=== PATIENT | male | born 1980 | race Caucasian/White ===

== ENCOUNTER 2024-01-08 04:04 | Emergency (ER) | payer OTHER, SELFPAY ==
[2024-01-08 04:07] VITALS: BP 180/100
[2024-01-08 04:47] VITALS: BMI 36.9
[2024-01-08 04:49] VITALS: BP 171/88
[2024-01-08 05:00] VITALS: BP 168/104
[2024-01-08 05:10] LABS: % Basophils 0.8 % (0-2); % Eosinophils 0.8 % (0-6); % Immature Granulocytes 0.4 % (0-0.5); % Lymphocytes 7.9 % (20.5-51.1); % Monocytes 6.5 % (1.7-9.3); % Neutrophils 83.6 % (42.2-75.2); Absolute Basophils 0.1 10^3/uL (0-0.2); Absolute Eosinophils 0.1 10^3/uL (0-0.7); Absolute Lymphocytes 0.8 10^3/uL (1.2-3.4); Absolute Monocytes 0.7 10^3/uL (0.1-0.6); Absolute Neutrophils 8.6 10^3/uL (1.4-6.5); Hematocrit 36.4 % (39.0-52.0); Hemoglobin 10.9 g/dL (13.0-18.0); Mean Corp Hgb Conc. 29.9 g/dL (33.0-37.0); Mean Corpuscular Hgb 20.4 pg (27.0-31.0); Mean Platelet Volume 9.6 fL (7.4-10.4); Nucleated Red Blood Cells % 0 % (-); Platelet Count 277 10^3/uL (130-400); Red Blood Cell Count 5.35 10^6/uL (4.70-6.10); Red Cell Dist. Width 18.6 % (11.5-14.5); White Blood Cell Count 10.3 10^3/uL (4.8-10.8)
[2024-01-08 05:13] LABS: ALT (SGPT) 15 U/L (0-50); AST (SGOT) 26 U/L (17-59); Alkaline Phosphatase 86 U/L (38-126); Blood Urea Nitrogen 9 mg/dl (9-20); Carbon Dioxide 25 mmol/L (22-30); Chloride 104 mmol/L (98-107); Estimated Creatinine Clearance > 125 ml/min; Glucose 112 mg/dl (70-99); Lipase 89 U/L (23-300); Potassium 4.2 mmol/L (3.5-5.1); Sodium 135 mmol/L (135-145); Total Bilirubin 1.2 mg/dl (0.2-1.3); Total Protein 6.8 g/dl (6.3-8.2); eGFR > 60.00
[2024-01-08 05:54] LABS: Urine Albumin Negative (Neg - Trace); Urine Bilirubin 1+ (Negative); Urine Character Clear (Clear); Urine Color Yellow; Urine Glucose Negative (Negative); Urine Ketone 3+ (Negative); Urine Leukocyte Negative (Negative); Urine Nitrite Negative (Negative); Urine Occult Blood Negative (Negative); Urine Specific Gravity 1.015 (<1.030); Urine Urobilinogen Negative (Neg - 1+); Urine pH 6.5 (5.0-9.0)
[2024-01-08 06:00] VITALS: BP 167/102
[2024-01-08 06:12] VITALS: BP 167/102
--- NOTE | 2024-01-08 06:41 | ED.GENMED ---
History of Present Illness
General
Chief Complaint: Abdominal Pain
Source: patient and spouse
Exam Limitations: none
Time Seen by Provider: 01/08/24 04:24
History of Present Illness
History of Present Illness:
43-year-old male who presents with right-sided abdominal pain. Patient does report history of gastric bypass many years ago as well as right-sided inguinal hernia at times. Patient states typically is able to push it back in. No fevers but he was
very nauseous. States he will did have 3 bowel movements yesterday that were normal but since then was not able to. He states he was working in [employer] at work. Has a history of A-fib with ablation and gastric bypass as mentioned.
Past History
Past History
ED Past Medical History: Arrthythmia (Afib), HTN and Other (Inguinal hernia)
ED Past Surgical History: Cardiac (Ablation), Orthopedic (Elbow) and Tonsilectomy
Social History
Tobacco: Non-smoker
Alcohol: Occasional
Drug: None
Employment: Employed
Phy Exam
Physical Exam
Physical Exam:
CONSTITUTIONAL Patient alert and oriented to person, place and time. Well-appearing. Vital signs reviewed.
HEAD atraumatic, normocephalic.
EYES eyelids normal to inspection, Extraocular muscles intact, Conjunctiva normal, Sclera normal.
NECK normal range of motion, Trachea midline, no jugular venous distention.
RESPIRATORY CHEST No respiratory distress noted, Chest expansion equal
ABDOMEN large right inguinal hernia. Able to reduce after pressure applied and patient placed in Trendelenburg.
BACK normal inspection, no obvious deformities
UPPER EXTREMITY range of motion normal, Motor strength normal, no cyanosis, no edema.
LOWER EXTREMITY range of motion normal, Motor strength normal, no cyanosis, no edema.
NEURO Speech normal, No focal motor deficits, [place] coma scale 15, Memory normal, Cranial Nerves intact to screening exam.
SKIN skin warm, dry, and normal in color.
PSYCHIATRIC patient oriented to person place and time, Normal affect.
Course
Orders/Labs/Results
Orders:
Orders
01/08/24 04:51
Complete Blood Count/With Diff Urgent
Comprehensive Metabolic Panel Urgent
Lipase Urgent
01/08/24 05:43
Urinalysis Reflex To Culture Urgent
Date Specimen was Collected: 01/08/24
Time Specimen was Collected: 05:40
Abnormal Lab Results
01/08/24 01/08/24
04:51 05:43
Hgb 10.9 L g/dL
(13.0-18.0)
Hct 36.4 L %
(39.0-52.0)
MCV 68.0 L fL
(80.0-94.0)
MCH 20.4 L pg
(27.0-31.0)
MCHC 29.9 L g/dL
(33.0-37.0)
RDW 18.6 H %
(11.5-14.5)
Absolute Neuts (auto) 8.6 H 10^3/uL
(1.4-6.5)
Absolute Lymphs (auto) 0.8 L 10^3/uL
(1.2-3.4)
Absolute Monos (auto) 0.7 H 10^3/uL
(0.1-0.6)
Neutrophils % 83.6 H %
(42.2-75.2)
Lymphocytes % 7.9 L %
(20.5-51.1)
Glucose 112 H mg/dl
(70-99)
Urine Ketones 3+ A
(Negative)
Urine Bilirubin 1+ A
(Negative)
01/08/24 04:51
01/08/24 04:51
Vital Signs
Initial and Last Documented VS:
Initial Vital Signs
Temp Pulse Resp BP Pulse Ox
99.2 F 73 20 180/100 99
07/27/24 04:07 01/08/24 04:07 01/08/24 04:07 01/08/24 04:07 01/08/24 04:07
Last Documented Vital Signs
Temp Pulse Resp BP Pulse Ox
99.2 F 70 19 167/102 97
01/08/24 04:07 01/08/24 06:12 01/08/24 06:12 01/08/24 06:12 01/08/24 06:12
MDM/Problems Addressed
MDM/Problems Addressed:
Inguinal hernia
*Pulse Oximetry
Patient hypoxic: no
*Critical Care Note
Total Time (30-74mins, 75-104mins- exclusive of procedures): Not Applicable
Data Reviewed
Source: patient
Further Testing Considered But Not Given:
Consider CT but inguinal hernia reduced.
Patient Management
Escalation/DeEscalation of care consider admission/obs:
Patient presented with right-sided discomfort. He also had dry heaves and nausea. Able to reduce very large right inguinal hernia during exam. Patient was observed and reassessed. Shortly after inguinal hernia was reduced he was able to use the
bathroom and passed stool and gas from below. Patient states that symptoms have markedly improved and have resolved. Suspect all symptoms related to inguinal hernia. Will refer to surgery for follow-up.
ED Attending Note
-
Portions of this chart may have been created with voice recognition software.� Occasional wrong word or��sound alike� substitutions may have occurred due to the inherent limitations of voice recognition software.
Discharge Plan
Departure
Patient Disposition: Home (Routine Discharge)
Date of Disposition: 01/08/24
Time of Disposition: 06:41
Patient with high blood pressure during this ER visit?: Yes
Discharge Problem:
Inguinal hernia
Instructions: Groin Hernia (DC), BLOOD PRESSURE
Prescriptions:
No Action
No Current Medications
0
Referrals:
Bharat Reed MD [Active] -
NONE,* [Family Provider] -
Stand Alone Forms: Return to Work
Activity Restrictions/Additional Instructions:
Please avoid straining or heavy lifting as discussed. Please see surgery in follow-up in the next 3 to 5 days. Return immediately for intractable vomiting, abdominal pain, fevers or any other concerns.
Your blood pressure was elevated while in the Emergency Department, please have your doctor re-evaluate it in the next 48 hours as untreated hypertension may lead to serious complications.
Interventions
Interventions:
*Risk Screen - Suicide Last Done: 01/08/24 04:07
*General Assessment Last Done: 01/08/24 04:07
*Neglect/Abuse Screening Last Done: 01/08/24 04:07
ED- Fall Risk Assessment Last Done: 01/08/24 04:07
*ED COVID-19 Vaccine History Last Done: 01/08/24 04:07
SS-Wfltno-Edylppjcuk Assessment Last Done: 01/08/24 04:20
Discharge Date and Time
Print Language: QATARI
[2024-01-08 07:00] VITALS: BP 161/96
== END 2024-01-08 07:15 | disposition home or self-care (01) ==
LOC: EMR 04:04
PROVIDERS: EMERGENCY PHYSICIAN Emergency Medicine
DX: K40.90 Unilateral inguinal hernia, without obstruction or gangrene, not specified as recurrent (principal); R10.9 Unspecified abdominal pain; R11.0 Nausea; I48.91 Unspecified atrial fibrillation; I10 Essential (primary) hypertension; Z98.84 Bariatric surgery status
CPT/HCPCS: 99283; 80053; 81003; 83690; 85025

== ENCOUNTER → 2024-02-11 07:53 | Outpatient (REF) | payer OTHER, SELFPAY | LOC: RAD 07:53 | PROVIDERS: ATTENDING PHYSICIAN Surgery | DX: K40.90 Unilateral inguinal hernia, without obstruction or gangrene, not specified as recurrent (principal) | CPT/HCPCS: 74177; Q9967 ==

== ENCOUNTER 2024-02-28 06:31 | Day surgery (SDC) | payer OTHER, SELFPAY ==
[2024-02-28] VITALS (7 sets, daily range): BP systolic 154–173; BP diastolic 86–103; BMI 34.9
[2024-02-28] MEDS: TYLENOL 1000 MG PO (11:18)
[2024-02-28] MEDS: NORMOSOL-R/PLASMALYTE-A 1000 IV (11:19)
--- NOTE | 2024-02-28 13:51 | OR.RPT ---
Operative Report
Operative Report
Primary Surgeon: Meliton
Assisting: Airam SHIN
Pre-op Diagnosis: Right inguinal hernia
Post-op Diagnosis: Same
Procedure Performed: Robot assisted laparoscopic repair of right inguinal hernia
Anesthesia Type: GETA
Specimen / Cultures: None
Estimated Blood Loss: 10cc
Complications: None immediate
Operative Findings: Large inguinoscrotal hernia, sliding type, involving cecum and appendix. Sac totally reduced. No discrete cord lipoma. XL MID 3D Max
Date of surgery: 02/28/24
Indications:� This 43M developed symptomatic right inguinal hernia involving colon. Bowel prep was performed preoperatively. Robot assisted laparoscopic repair was planned.
Description of procedure:� The patient was taken to the operating room and positioned into supine position. Guzman placed. The patient�s abdomen was prepped and draped in standard sterile fashion. A time-out was completed verifying correct patient,
procedure, site, positioning, and implants and special equipment prior to beginning this procedure.� The hernia was manually reduced after induction. A stab incision was made in the left upper quadrant, a Veress needle was inserted and proper
position was confirmed by aspiration and saline drop test. Following this, pneumoperitoneum was created with insufflation of carbon dioxide to 12 mmHg. Then a 8mm robotic trocar was inserted above and to the left of the umbilicus. A laparoscope was
inserted and the area of initial trocar entry and Veress needle placement were both inspected and no injuries were found. Two 8mm trocars were then placed lateral to the rectus sheath under direct visualization.
Both inguinal regions were inspected and the median umbilical ligament, medial umbilical ligament, and lateral umbilical fold were identified. Attention was turned to the right groin where a defect was identified. External pressure was applied by
the bedside assist to help with reduction. The peritoneum was incised transversely above the defect and a flap was developed in the caudad direction. Wellington�s ligament was identified ultimately dissected to its junction with the iliac vein and the
space of Retzius was developed bluntly.�The dissection was continued inferiorly to the iliopubic tract, with care taken to avoid injury to the femoral branch of the genitofemoral nerve and the lateral femoral cutaneous nerve. The cord structures
were parietalized. The sac was very large and difficult to reduce but ultimately all came down with the flap.
The direct space was inspected and no hernia was identified. The femoral space was inspected no defect was identified.� The indirect space was inspected and a hernia was identified and reduced by gentle traction. The sac was large and deep but
ultimately totally reduced. The canal was inspected and no cord lipoma was identified.
Extra large right MID 3D max mesh was passed through a trocar. The mesh was placed into the preperitoneal space and moved into position to lay flat and completely cover the direct, indirect, and femoral spaces with overlap at the midline. The mesh
was secured into place using 2-0 vicryl suture to Wellington�s ligament medially and laterally. Care was taken to avoid the inferolateral triangles containing the iliac vessels and genital nerves. The peritoneal flap was closed over the mesh and secured
with 2-0 monocryl stratafix suture in similar positions of safety. A 14g angiocath was used to decompress the preperitoneal space revealing good seal and all mesh in good position without folding or curling.
After ensuring adequate hemostasis, the trocars were removed and the pneumoperitoneum allowed to escape. The trocar incisions were closed at the skin level using 4-0 monocryl and topical skin adhesive. Guzman removed. All counts were correct and the
patient tolerated the procedure well and was taken to the postanesthesia care unit in stable condition.
== END 2024-02-28 15:45 | disposition home or self-care (01) ==
LOC: SDS 06:31
PROVIDERS: ATTENDING PHYSICIAN Surgery
DX: K40.90 Unilateral inguinal hernia, without obstruction or gangrene, not specified as recurrent (principal)
CPT/HCPCS: 49525; C1781

== ENCOUNTER 2024-02-29 17:48 | Emergency (ER) | payer OTHER, SELFPAY ==
[2024-02-29 17:50] VITALS: BP 166/103
--- NOTE | 2024-02-29 17:52 | ED.PDOC.TRB ---
ED Provider Triage
-
Patient seen by provider in Triage?: Seen in Triage
Attestation: A medical screening examination has been initiated by a qualified medical provider. Based on the assessment performed at this time, it has been determined that an emergent medical condition may exist and the patient has been informed
that further medical evaluation and possible additional diagnostic testing may be needed.
HPI: 43-year-old male presents the emergency department for evaluation of right scrotal swelling. States he is concerned that his intestines have protruded back into his hernia sac. He is 1 day status post inguinal hernia repair with mesh done at
[facility] by Dr. Coelho. Pain is mild
GENERAL: Alert , in no apparent distress
EYE: No visual abnormalities.
NECK: Trachea midline
ENT: No visible abnormalities.
LUNGS: No acute respiratory distress
NEUROLOGICAL: Alert and oriented
SKIN: Skin intact. No visible changes.
MUSCULOSKELETAL: Moving extremities normally
PSYCH: Normal and appropriate interaction.
Assessment: Likely postoperative edema however will send for ultrasound to confirm that there is no recurrent hernia, unlikely given placement of mesh
This is a medical evaluation conducted in person to initiate diagnostic evaluation and provide initial therapeutics. Please see further documentation by the treating clinician.
--- NOTE | 2024-02-29 18:52 | ED.GENMED ---
History of Present Illness
General
Chief Complaint: Post Operative Problem(s)
Source: patient and records
Time Seen by Provider: 02/29/24 18:29
History of Present Illness
History of Present Illness:
43yoM who is POD 1 s/p R inguinal hernia with mesh presenting for evaluation of right scrotal swelling. The surgery was performed by Dr. Coelho and went well. Patient states he tripped on carpet monica night and he felt a pull in his groin. He checked
and it felt like his R hemiscrotum was enlarged. He was told by his surgeon that he may develop postoperative scrotal fluid due to the size of his hernia. Patient believes that his scrotum is filled with fluid because it feels less firm than his
hernia. He denies any abdominal or scrotal pain. He is urinating and defecating normally. No fevers or vomiting.
Past History
Past History
ED Past Medical History: Arrthythmia (Afib), HTN and Other (Inguinal hernia)
ED Past Surgical History: Cardiac (Ablation), Orthopedic (Elbow) and Tonsilectomy
Social History
Tobacco: Non-smoker
Alcohol: Occasional
Drug: None
Employment: Employed
Phy Exam
General Physical Exam
General Presentation: well appearing and no apparent distress
General age: appears stated age
General Skin: warm and dry
General Habitus: normal
General Mental: alert
Gastrointestinal Exam
Gastrointestinal Exam: non tender, soft, non distended, surgical scar and other (Incisions c/d/i. Abdomen soft, non-tender, non-distended.)
Genitourinary Exam Male
Exam Male: other (+Large amount of R scrotal swelling noted. R hemiscrotum is soft and easily compressible. No tenderness. No palpable hernia. )
[place] Coma Scale
Eye Opening: Spontaneous
Verbal Response: Oriented
Motor Response: Obeys Commands
GCS Total Score: 15
Skin Exam
Skin Exam: normal color and warm/dry
Psychiatric Exam
Psychiatric Exam: normal mood/affect
Course
Orders/Labs/Results
Orders:
Orders
02/29/24 17:50
US Groin (Imaging Only) RT Urgent
Comment:
Reason For Exam: Swelling post groin surgery
US Scrotum Urgent
Comment:
Reason For Exam: R scrotal swelling after hernia surgery
Vital Signs
Initial and Last Documented VS:
Initial Vital Signs
Temp Pulse Resp BP Pulse Ox
97.9 F 90 17 166/103 99
02/29/24 17:50 02/29/24 17:50 02/29/24 17:50 02/29/24 17:50 02/29/24 17:50
Last Documented Vital Signs
Temp Pulse Resp BP Pulse Ox
97.9 F 66 24 155/100 99
02/29/24 17:50 02/29/24 21:06 02/29/24 21:06 02/29/24 21:06 02/29/24 21:06
MDM/Problems Addressed
Differential Diagnosis Includes:
43yoM here with R scrotal swelling. He is s/p R inguinal hernia repair with mesh yesterday. He denies any pain. Urinating and defecating normally. Patient is afebrile and hemodynamically stable. He is well-appearing in no acute distress.
Abdominal exam is benign. Incisions are clean, dry, and intact. There is a large amount of swelling in the right hemiscrotum without tenderness. No palpable hernia. Differential diagnosis include but is not limited to: Hematoma, postoperative
seroma, recurrent hernia
Initial ED plan: Check scrotal and groin ultrasound.
*Critical Care Note
Total Time (30-74mins, 75-104mins- exclusive of procedures): Not Applicable
Update Note
Update Note:
Ultrasound shows a large complex fluid collection in the right testicle favoring a complex hematoma. No visualized hernia in the R groin. Case discussed with Dr. Reed, general surgeon. General surgery recommending ice, elevation, as needed
NSAIDs. Recommendations were discussed with patient. He was advised to call the general surgery office tomorrow for follow-up. ED return precautions discussed. He was discharged in stable condition.
ED Attending Note
-
Portions of this chart may have been created with voice recognition software.� Occasional wrong word or��sound alike� substitutions may have occurred due to the inherent limitations of voice recognition software.
Discharge Plan
Departure
Patient Disposition: Home (Routine Discharge)
Date of Disposition: 02/29/24
Time of Disposition: 21:13
Patient with high blood pressure during this ER visit?: Yes
Discharge Problem:
Postoperative hematoma
Instructions: Hematoma
Prescriptions:
No Action
No Current Medications
0
oxycodone 5 mg tablet
5 - 10 mg PO Q4HPRN PRN (Reason: moderate to severe pain) Qty: 20 0RF
Referrals:
Jerel Coelho MD [Active] -
UNKNOWN - PT DOES,NOT KNOW [Family Provider] -
Activity Restrictions/Additional Instructions:
Elevate your scrotum and apply ice to help with swelling. Take ibuprofen as needed.
Please call the general surgery office tomorrow for follow-up.
Return to the ER with any worsening symptoms, severe pain, fevers.
Interventions
Interventions:
*Risk Screen - Suicide Last Done: 02/29/24 17:51
*General Assessment Last Done: 02/29/24 17:51
*Neglect/Abuse Screening Last Done: 02/29/24 17:51
ED- Fall Risk Assessment Last Done: 02/29/24 21:22
*ED COVID-19 Vaccine History Last Done: 02/29/24 21:22
*Nursing Disposition Last Done: 02/29/24 21:22
ED-Skin Assessment Last Done: 02/29/24 19:01
Discharge Date and Time
Discharge Date/Time: 02/29/24 21:23
Print Language: GREENLANDIC
[2024-02-29 21:06] VITALS: BP 155/100
== END 2024-02-29 21:23 | disposition home or self-care (01) ==
LOC: EMR 17:48
PROVIDERS: EMERGENCY PHYSICIAN Emergency Medicine
DX: L76.32 Postprocedural hematoma of skin and subcutaneous tissue following other procedure (principal); Y83.8 Other surgical procedures as the cause of abnormal reaction of the patient, or of later complication, without mention of misadventure at the time of the procedure; I10 Essential (primary) hypertension
CPT/HCPCS: 99284; 76870; 76882; 93976

== ENCOUNTER 2024-06-07 22:56 | Inpatient (IN) | payer OTHER, SELFPAY ==
[2024-06-07] VITALS (13 sets, daily range): BP systolic 114–128; BP diastolic 55–67; BMI 40.8
[2024-06-07 20:58] LABS: INR 1.18; PT 15.5 Sec (11.4-14.6)
[2024-06-07 20:59] LABS: APTT 30.8 Sec (23.4-35.0); Hematocrit 20.9 % (39.0-52.0); Hemoglobin 6.1 g/dL (13.0-18.0); Mean Corp Hgb Conc. 29.2 g/dL (33.0-37.0); Mean Corpuscular Volume 71.8 fL (80.0-94.0); Mean Platelet Volume 10.1 fL (7.4-10.4); Platelet Count 804 10^3/uL (130-400); Red Blood Cell Count 2.91 10^6/uL (4.70-6.10); Red Cell Dist. Width 18.8 % (11.5-14.5); White Blood Cell Count 27.9 10^3/uL (4.8-10.8)
[2024-06-07 21:03] LABS: ALT (SGPT) 23 U/L (0-50); AST (SGOT) 72 U/L (17-59); Albumin 2.4 g/dl (3.5-5.0); Alkaline Phosphatase 114 U/L (38-126); Blood Urea Nitrogen 32 mg/dl (9-20); Calcium 7.6 mg/dl (8.4-10.2); Carbon Dioxide 20 mmol/L (22-30); Chloride 101 mmol/L (98-107); Glucose 104 mg/dl (70-99); Potassium 4.2 mmol/L (3.5-5.1); Sodium 136 mmol/L (135-145); Total Bilirubin 0.5 mg/dl (0.2-1.3); eGFR > 60.00
[2024-06-07 21:21] LABS: % Basophils 0.2 % (0-2); % Eosinophils 0.1 % (0-6); % Immature Granulocytes 3.4 % (0-0.5); % Lymphocytes 6.1 % (20.5-51.1); % Monocytes 4.2 % (1.7-9.3); Absolute Basophils 0.1 10^3/uL (0-0.2); Absolute Immature Granulocytes 0.9 10^3/uL (0-0.05); Absolute Lymphocytes 1.7 10^3/uL (1.2-3.4); Absolute Monocytes 1.2 10^3/uL (0.1-0.6); Nucleated Red Blood Cells % 0.1 % (-)
--- NOTE | 2024-06-07 21:40 | ED.GENMED ---
History of Present Illness
General
Chief Complaint: Rectal Bleeding
Source: patient
Exam Limitations: none
Time Seen by Provider: 06/07/24 21:14
History of Present Illness
History of Present Illness:
This is a 44 year old male that comes in with c/o GI bleeding. States that this morning he vomited up blood. Then after this he has had multiple stoosl with dark red blood. State that at least 4 stools. States that he is SOB when he gets up and
lightheaded. Denies any fever, chills, chest pain, abd pain, headache, urinary burning.
Past History
Past History
ED Past Medical History: Arrthythmia (Afib), HTN and Other (Inguinal hernia)
ED Past Surgical History: Cardiac (Ablation), Orthopedic (ORIF right elbow. ), Tonsilectomy (and adenoids) and Other (Hernia repair, Gastric bypass, )
Social History
Tobacco: Vaping
Alcohol: None
Drug: None
Personal: Single
Living: with family
Employment: Employed
Review of Systems
Review of Systems
All Other Systems: ROS reviewed and negative except as documented in HPI and ROS
Constitutional: Reports no symptoms; Denies fever or chills
EENT: Reports no symptoms
Respiratory: Reports trouble breathing; Denies cough
Cardiac: Reports no symptoms; Denies chest pain
ABD/GI: Reports nausea, vomiting (Once) and bloody stools; Denies abdominal pain
: Reports no symptoms; Denies dysuria, frequency or urgency
Musculoskeletal: Reports no symptoms
Skin: Reports other (Open wound right calf)
Neurological: Reports dizzy; Denies headache
Psychiatric: Reports no symptoms
Phy Exam
General Physical Exam
General Presentation: no apparent distress
General age: appears stated age
General Skin: warm, dry and pale
General Habitus: obese
General Mental: alert
General Hydration: dry mucous membranes
ENT Exam
ENT Exam: TM's normal, pharynx normal and neck supple
Eye Exam
Eye Exam: EOMI
Cardiovascular Exam
Cardiovascular Exam: no edema, no murmur, normal peripheral pulses and tachycardia
Pulmonary Exam
Pulmonary Exam: lungs clear, no respiratory distress, no rales, chest non tender, no crackles, no rhonchi, no wheezing and no cough
Gastrointestinal Exam
Gastrointestinal Exam: normal bowel sounds, non tender, soft, no organomegaly, no pulsatile mass, non distended and other (stool bloody hem positive)
Musculoskeletal Exam
Musculoskeletal Exam: full ROM and no edema
Skin Exam
Skin Exam: warm/dry, no petechia, pallor and redness (of the right posterior/medial calf with open wound. Area is warm to touch)
Psychiatric Exam
Psychiatric Exam: normal mood/affect
Course
Orders/Labs/Results
Orders:
Orders
06/07/24 20:30
Cardiac Monitoring- Treatment ONCE
IV Insert/Care/Rem.- Treatment PRN
O2 Therapy [RESP] Urgent
Titrate/Wean O2 to maintain O2 sat greater than (%): 93
Special Instructions: MAINTAIN CONTINOUS O2 SATS > OR = 93%
Pulse Ox/spot Check [RESP] Urgent
Quantity: 1
Special Instructions: ON ROOM AIR
06/07/24 20:34
Type+Screen Urgent
Complete Blood Count/With Diff Urgent
Comprehensive Metabolic Panel Urgent
PTT Urgent
Prothrombin Time Urgent
06/07/24 21:29
CT Abd/pelvis Angio W/wo Iv Urgent
Comment:
Reason For Exam: GI bleeding vomiting and rectal bleeding,
06/07/24 21:31
* Blood Bank Products Urgent
Blood Bank Products: *Packed RBC Leuko(PRBC's)
Quantity: 2
Transfuse Today: Yes
Reason: Bleeding
06/07/24 21:32
IV Insert/Care/Rem.- Treatment PRN
06/07/24 21:37
Pantoprazole [Protonix IV] 80 mg IV NOW STA
06/07/24 21:38
Piperacillin/Tazo 3.375 Gram [Zosyn] 3.375 gram in 50 ml IV NOW
06/07/24 21:39
Vancomycin [Vancocin] 2,000 mg 0.9% Sodium Chloride 500 ml [Nss] 500 ml IV NOW
06/07/24 21:47
Wound Culture [Wound/Abscess/Other Culture] Urgent
CHARLES Source: Leg
Specimen Description: Right
Date Specimen was Collected: 06/07/24
Time Specimen was Collected: 21:45
Comment: Calf
06/07/24 21:51
Electrocardiogram (*1) Urgent
Reason for Study: Shortness of Breath
EKG- Treatment ONCE
06/07/24 22:07
Lactic Acid Urgent
06/07/24 22:16
Admit/Transfer Patient As Directed
Co-Sign Provider:
Level of Care: Inpatient admission
Assign to:: IMU- Intermediate Care
Physician / Group: Phil Miller
Diagnosis: Acute lower GI Bleed
Reason for Hospitalization: Acute lower GI bleed
Expected length of stay greater than two midnights?: Yes
ELOS- Estimated Length of Stay in days: 3
I certify the patient meets the requirements for IP care: Yes
PRN Pain Medication Management As Directed
May give lesser potent ordered pain med per pt: Yes
preference::
Protocol:: Medication orders for pain may be administered in a
manner that supports deferring to patient preference
when the pt is:
- Requesting an ordered lesser potent pain medication.
Least to most potent pain medications are defined
as: acetaminophen < NSAID < tramadol < opioids
(morphine, oxycodone, hydromorphone).
- Requesting a lesser dose of the same medication IF
ORDERED.
- Requesting a less intrusive route of administration
if both routes are prescribed by the provider (PO <
IV).
06/07/24 22:18
Code Status As Directed
Resuscitation Status: Full Code
06/10/24 11:00
DC Protocol for Telemetry ONCE
Abnormal Lab Results
06/07/24
20:34
WBC 27.9 H 10^3/uL
(4.8-10.8)
RBC 2.91 L 10^6/uL
(4.70-6.10)
Hgb 6.1 L* g/dL
(13.0-18.0)
Hct 20.9 L* %
(39.0-52.0)
MCV 71.8 L fL
(80.0-94.0)
MCH 21.0 L pg
(27.0-31.0)
MCHC 29.2 L g/dL
(33.0-37.0)
RDW 18.8 H %
(11.5-14.5)
Plt Count 804 H 10^3/uL
(130-400)
Abs Immat Gran (auto) 0.9 H 10^3/uL
(0-0.05)
Absolute Neuts (auto) 24.0 H 10^3/uL
(1.4-6.5)
Absolute Monos (auto) 1.2 H 10^3/uL
(0.1-0.6)
Immature Gran % 3.4 H %
(0-0.5)
Neutrophils % 86.0 H %
(42.2-75.2)
Lymphocytes % 6.1 L %
(20.5-51.1)
PT 15.5 H Sec
(11.4-14.6)
Carbon Dioxide 20 L mmol/L
(22-30)
BUN 32 H mg/dl
(9-20)
Creatinine 0.6 L mg/dL
(0.7-1.3)
Glucose 104 H mg/dl
(70-99)
Calcium 7.6 L mg/dl
(8.4-10.2)
AST 72 H U/L
(17-59)
Total Protein 6.0 L g/dl
(6.3-8.2)
Albumin 2.4 L g/dl
(3.5-5.0)
Crossmatch IS Only See Detail
06/07/24 20:34
06/07/24 20:34
Leukocytosis, H/H very low. Thrombocythemia, PT 15.5 with INR 1.18, PTT 30.8, Dehydration (possible elevation due to bleeding), Glucose nonfasting. AST elevation. Albumin low.
Vital Signs
Initial and Last Documented VS:
Initial Vital Signs
Pulse Resp Pulse Ox
99 17 98
06/07/24 19:56 06/07/24 19:56 06/07/24 19:56
Last Documented Vital Signs
Temp Pulse Resp BP Pulse Ox
98.9 F 89 16 128/67 96
06/07/24 22:24 06/07/24 23:15 06/07/24 23:15 06/07/24 23:15 06/07/24 23:15
MDM/Problems Addressed
Differential Diagnosis Includes:
GI bleeding
MDM/Problems Addressed:
This is a 44 year old male that comes in with c/o vomiting blood this morning and since that time has had 4 bloody stools with clots. States that it was dark red at first.
Will get labs. Give PRBC's and admit patient.
CT cont-timing of contrast, please correlate with renal function. NO acute abnormalities seen. gallbladder and appendix are unremarkable. Trace right pleural effusion.
Into see patient Earlier. Explained that he would be admitted due to the bleeding. Blood consent signed an PRBC's ordered. Hospitalist notified.
Chronic conditions affecting care:
Gastric by pass
Acute Exacerbation and/or Progression of Chronic Illness:
NA
*Radiology
Radiology exam reviewed: radiology read reviewed (CT [place]- Stomach is grossly unremarkable, CT has a decreased sensitivity for peptic ulcer disease. NO specific findings to account for patient's hematemesis. If indicated consider endoscopy.
Status post gastric bypass. No evidence of obstruction or internal hernia. No gross ulcer however), all reviewed NAD by ED Provider (CT cont- CT has a decreased sensitivity, no adjacent inflammation. HIgh density already present within the stomach
on the noncontrast images. Small amount of free fluid in the pelvis of unclear etiology, nonspecific in a male patient. No free air. If symptoms persist or progress consider further ) and other (CT cont-workup. Probable incidental transient
intussusception of the small bowel coronal series 602 images 32-36 and in the left abdomen coronal images 29-33, likely physiologic. No associated dilatation of obvious lead point mass. NO renal excretion of contrast on the delayed images, may be
timing )
*Pulse Oximetry
Patient hypoxic: no
*[employer] Interpretation
Rate: tachycardiac
Heart Rate: 102
Rhythm: sinus tachycardia
*Critical Care Note
Total Time (30-74mins, 75-104mins- exclusive of procedures): Not Applicable
ED Attending Note
-
Portions of this chart may have been created with voice recognition software.� Occasional wrong word or��sound alike� substitutions may have occurred due to the inherent limitations of voice recognition software.
Discharge Plan
Departure
Patient Disposition: Admit
Date of Disposition: 06/07/24
Time of Disposition: 21:51
Admit to: ICU
Presentation/result/management discussed w/ accepting MD/DO: Hospitalist
Patient with high blood pressure during this ER visit?: No
Condition: Good
Covid-19: Not Applicable
Discharge Problem:
Acute GI bleeding
Interventions
Interventions:
IJ-Qnmsue-Rpakpxjygn Assessment Last Done: 06/07/24 21:15
ED- Cardiac Assessment Last Done: 06/07/24 21:15
ED- Pulmonary Assessment Last Done: 06/07/24 21:15
[2024-06-07] MEDS: ZOSYN 50 IV (21:51)
[2024-06-07] MEDS: PROTONIX IV 80 MG IV (21:51)
--- NOTE | 2024-06-07 22:00 | HPS.HSE ---
Family Physician
-
Family Physician:
Chief Complaint
-
Rectal bleeding
History of Present Illness
This is a 44-year-old who has a past medical history of CVA status post tPA in the past associated with GI bleed, history of proximal atrial fibrillation status post ablation and no recurrence, history of gastric bypass surgery, presenting to the
emergency department with an acute episode of rectal bleeding that started in the morning.
Patient reports that about a month ago he had a wound in the right lower extremity which she has been treated with wound care. Last week he developed injury to the right knee which he described as a popping sensation with pain and swelling. There
was no redness. There was no fluid collection in the is suprapatellar cavity. He denied having any fevers or chills. He started taking NSAIDs (naproxen to 50 mg to 500 mg twice a day) 4 days ago. He reported that the NSAIDs improved his symptoms
but he soon developed mild abdominal discomfort followed by johan red blood in the stool. He had multiple episodes of johan red blood in the stool. He had 1 episode of bloody vomiting. His last bowel movement was at home when he passed a blood
clot. He started feeling dizzy and decided come to the emergency department.
Patient denies any other medications. He denies any recent travels or sick contacts.
In the emergency department initial blood pressure was 120/50 with a pulse of 90. She had leukocytosis to 27.9, hemoglobin 6.1 and plate over 804. Electrolytes BUN/creatinine were within normal limits. BUN was 32. LFTs were unremarkable.
Abdominal imaging is pending.
Medical History
Past Medical History
Past Medical History: Reports Arrhythmia (Proximal atrial fibrillation status post ablation not on any anticoagulation) and CVA (Status post tPA without residual deficit)
Additional Past Medical History:
Prior history of GI bleed in the setting of anticoagulation for stroke
Past Surgical History: Reports Bowel Resection (Gastric bypass)
Social History
Tobacco: Non-smoker
Alcohol: None
Drug: None
Personal: Single
Living: With Roomate
Employment: Employed
Family History
Family History: Not pertinent
Allergies / Home Medications
Allergies reflects when Allergies were last updated in [employer].
Home Medications with original date entered in [employer]
Allergy/Medication List:
Allergies
Allergy/AdvReac Type Severity Reaction Status Date / Time
NKA - No Known Allergies Allergy Unknown Uncoded 02/29/24 17:51
Home Medications
No Meds [No Current Medications] 01/08/24
oxycodone 5 mg tablet 5 - 10 mg (1 - 2 x 5 mg) PO Q4HPRN PRN moderate to severe pain #20 tabs 02/28/24
Review of Systems
-
Constitutional: Reports No Symptoms
EENT: Reports No Symptoms
Respiratory: Reports No Symptoms
Cardiac: Reports No Symptoms
Abdomen/GI: Reports Vomiting and Bloody Stools
: Reports No Symptoms
Musculoskeletal: Reports Joint Pain
Skin: Reports Rash (right posterior calf swelling and erythema)
Neurological: Reports No Symptoms
Endocrine: Reports No Symptoms
Hematologic/Lymphatic: Reports No Symptoms
Psych: Reports No Symptoms
Physical Exam
Vital Signs
Vital Signs
Temp Pulse Resp BP Pulse Ox
98.0 F 90 19 120/58 97
06/07/24 21:15 06/07/24 21:15 06/07/24 21:15 06/07/24 21:00 06/07/24 21:15
Physical Exam
General: Well Developed, Well Nourished, No Apparent Distress and Comfortable
HEENT: NormoCephalic, Anicteric, Moist mucous membranes and Atraumatic
Respiratory: Clear
Cardiac: S1/S2 and Regular Rhythm
Breast: Deferred by me
GI: Soft, Non Tender, Non Distended and Normal Bowel Sounds
Rectal: Red and Hem Positive
Genito-urinary: Deferred by me
Musculoskeletal: No Clubbing, No Cyanosis and No Edema
Skin: Warm
Neuro: AO x 3
Hematologic/Lymphatic: No Lymphadenopathy
Psych: Calm
Laboratory Results
-
06/07/24 20:34
06/07/24 20:34
Laboratory Results
PT 15.5 Sec (11.4-14.6) H 06/07/24 20:34
INR 1.18 06/07/24 20:34
APTT 30.8 Sec (23.4-35.0) 06/07/24 20:34
Total Bilirubin 0.5 mg/dl (0.2-1.3) 06/07/24 20:34
AST 72 U/L (17-59) H 06/07/24 20:34
ALT 23 U/L (0-50) 06/07/24 20:34
Alkaline Phosphatase 114 U/L (38-126) 06/07/24 20:34
Data Reviewed
-
CT Scan: Report Reviewed by me
Lab Data: Labs Reviewed by me
Old Records: Reviewed
Impression/Plan
-
IMPRESSION:
44 y.o with likely acute lower Gi bleed and symptomatic anemia. Gi bleed started in setting of NSAID use x 4 days (naprosyn 250 - 500mg bid). No thinners. Prior colonoscopy for prior GI bleed but unknown findings. Possible gastritis with a
single episode of vomiting. Hgb 6.1, previously 10. Likely chronic anemia with low MCV at baseline. CT w/o active gastric, intestinal hemorrhage. No perforated or large ulcers.
PLAN:
1. GI bleed - Acute lower GI bleed, HD stable
- admit to IMU
- type and screen and transfusing 2 units for goal Hgb of 8
- h&h q 6 for now
- NPO, gentle maintenance fluids with d5 1/2NS
- less likely upper GI but will continue ppi iv bid
- likely colo and upper endoscopy needed.
- CT pending for possible diverticulitis
2. Cellulitis - Right leg cellulitis surrounding a persistent wound, marked leukocytosis
- zosyn vanc given in ED
- hold zosyn, no infection see on CT
- continue vancomycin, check mrsa screen
- blood cultures if febrile
- pain control with tylenol and low dose opioids as bp tolerates
DVT PPX - SCD
Code status full code
[2024-06-07 22:28] LABS: Lactic Acid 1.2 mmol/L (0.7-2.0)
[2024-06-08] VITALS (41 sets, daily range): BP systolic 102–147; BP diastolic 46–93; BMI 40.2
--- NOTE | 2024-06-08 01:59 | PTCARENOTE ---
Patient arrived into room 3345 w/ INDIRECT SALES [employer]EC. Oriented to room and use of call garcia. Significant other at bedside. Blood infusing by gravity. NSR on tele. RLE warm and swollen. No nausea/vomiting. Call garcia and tray table left within reach.
[2024-06-08] MEDS: VANCOCIN 540 MG IV (03:06)
[2024-06-08] MEDS: D5/0.45%NACL 1000 IV ×2 (03:06→21:19)
[2024-06-08] MEDS: DILAUDID 0.5 MG IV ×4 (06:29→21:19)
[2024-06-08 06:55] LABS: Hemoglobin 5.4 g/dL (13.0-18.0); Mean Corp Hgb Conc. 31.8 g/dL (33.0-37.0); Mean Corpuscular Hgb 22.9 pg (27.0-31.0); Mean Platelet Volume 9.7 fL (7.4-10.4); Platelet Count 673 10^3/uL (130-400); Red Blood Cell Count 2.36 10^6/uL (4.70-6.10); Red Cell Dist. Width 19.6 % (11.5-14.5); White Blood Cell Count 22.3 10^3/uL (4.8-10.8)
[2024-06-08 07:07] LABS: Iron 31 ug/dl (49-181)
[2024-06-08 07:17] LABS: Percent Saturation 15 % (20-50); Total Iron Binding Capacity 200 ug/dl (261-462)
--- NOTE | 2024-06-08 07:57 | PHA.VAN.IN ---
Assessment
- Assessment
Renal Function: Appears similar to baseline
Renal Function may be Overestimated due to: BMI ~40
Concomitant Antimicrobials: none
AUC Dosing Plan
- Dosing Variables
Dosing Weight (kg): 113
Dosing CrCl (ml/min): 100
Vd coefficient (L/kg): 0.5
- Empiric Dosing
Initial / Loading Dose: 2000 mg LD given 06/08 0300
Maintenance Regimen: 1250 mg q12h - first dose 06/08 1800
Estimated AUC (mcg*h/mL): 540
Estimated Peak (mcg*h/mL): 34.1
Estimated Trough (mcg/ml): 13.6
Estimated Half Life (H): 7.9
- Monitoring
No levels ordered at this time: consider levels after Wednesday berenice dose ( 4th total dose)
Pharmacokinetics Vancomycin I
- -
Patient Age: 44
Patient Sex: Male
Vancomycin Day #: 1
Indication: Skin And Soft Tissue
Requesting Provider: Sam
Pertinent Antimicrobial Allergies:
nka
Height / Weight:
Height 5 ft 6 in
Actual Weight 113 kg
Adjusted BW in k.5
Pertinent Past Medical History: CVA s/p tPA
- Vital Signs / Lab Results
Temp Pulse Resp BP Pulse Ox
99.7 F 88 17 125/72 97
06/08/24 02:47 06/08/24 07:45 06/08/24 07:45 06/08/24 07:04 06/08/24 07:45
Lab Results - Hematology
06/07/24 06/08/24
20:34 06:19
WBC 27.9 H 22.3 H
Lab Results - Chemistry
06/07/24
20:34
BUN 32 H
Creatinine 0.6 L
Albumin 2.4 L
06/07/24
22:07
Lactic Acid 1.2
[2024-06-08 08:13] LABS: Hematocrit 18.5 % (39.0-52.0); Hemoglobin 5.8 g/dL (13.0-18.0)
[2024-06-08] MEDS: PROTONIX IV 40 MG IV (08:32)
[2024-06-08] MEDS: NSS (PRESERVATIVE FREE) 10 ML IV (08:32)
--- NOTE | 2024-06-08 09:09 | W.PN.HOSP.TC ---
Today's Communication/Plan
-
44 y.o with acute Gi bleed and symptomatic anemia. Gi bleed started after NSAID use x 4 days (naprosyn 250 - 500mg bid). No blood thinners. Hgb at time of admit 6.1, previously 10.
PLAN:
1. GI bleed - Acute GI bleed
- keep today in IMU
- transfusing 2 more units now for goal Hgb of 8 (last 5.8), may need more after these two.
- Continue h&h q6
- Continue NPO,
- Continue gentle maintenance fluids with d5 1/2NS
- continue ppi iv bid
- GI consult
2. Cellulitis - Right leg cellulitis surrounding a persistent wound, marked leukocytosis, zosyn and vanc given in ED
- continue vancomycin, check mrsa screen
- blood cultures if febrile
- pain control with tylenol and low dose opioids as bp tolerates
3. Right knee injury
-pain control with opioids as needed while dealing with GI bleed
-PT consult once GI bleed resolved
-outpatientvs inpatient follow up with orthodepending on PT eval
4. Morbid Obesity with BMI of 40.2, h/o gastric bypass in past
-outpatient weight management
5. Normal Ca. Ca corrects to 8.88
- treatment not needed
DVT PPX - SCD on left leg
Code status full code
Assessment / Plan
Assessment / Plan
Anticipated Discharge: > 48 hours
Subjective/Interval History
-
Date of Service: June 08, 2024
Patient feels well. Dilaudid helps with knee pain.
Objective Data
-
Labs:
Laboratory Results
06/08/24 06/08/24 06/08/24
06:19 06:19 06:19
WBC 22.3 H
Hgb 5.4 L* Cancelled
Hct 17.0 L* Cancelled
Plt Count 673 H
06/08/24 06/08/24 06/08/24
06:20 07:47 13:51
WBC
Hgb Cancelled 5.8 L* Pending
Hct Cancelled 18.5 L* Pending
Plt Count
06/08/24
19:51
WBC
Hgb Pending
Hct Pending
Plt Count
Vital Signs:
Vital Signs
Temp Pulse Resp BP Pulse Ox
99.7 F 83 21 116/70 93
06/08/24 02:47 06/08/24 08:00 06/08/24 08:00 06/08/24 08:00 06/08/24 08:05
I&O
06/07/24 06/08/24 06/09/24
06:59 06:59 06:59
Intake Total 980 / 980
Output Total 600 / 600
Balance 380 / 380
Review of Systems
-
History Source: Patient
All other systems: Reviewed and negative
Physical Exam
-
General: Well Developed, Well Nourished, Comfortable and Morbidly Obese
HEENT: Normocephalic, Moist Mucous Membranes, Nose Appears Normal and Ears Appear Normal
Respiratory: Clear to Auscultation
Cardiac: Regular Rhythm and S1/S2
GI: Soft, Nontender and Nondistended
Musculoskeletal: No Clubbing and No Cyanosis
Skin: Warm and Dry
Neuro: Awake, Alert, Oriented and AO x 3
Psych: Calm
Data Reviewed
-
Labs: Labs Reviewed by me
--- NOTE | 2024-06-08 09:39 | CON.GI ---
Addendum entered and electronically signed by Patel Schmitt MD 06/08/24 13:30:
I saw and examined the patient.
The GENERAL SCIENCE TEACHER or PA's note was reviewed and I agree with the note.
Comment:
Pt is a 44 y/o with a hx of Afib with a hx of PAF, CVA s/p TPA, Jani en Y gastric bypass, , with recent right leg injury, swelling with NSAIDs. Former tobacco. Presented with rectal bleeding, dizziness, hgb 5.8 which didn't increase after blood
transfusion. Feeling ok when in bed. No more bleeding overtly.
abd: soft, nontender
impression:
hx of gastric bypass
likely anastomotic ulcer bleed
anemia
plan:
PPI ggt
urgent EGD
continue to transfuse
monitor hgb
Original Note:
Consultation
-
Date/Time Consultation Requested: 06/08/24150
Date/Time Consultation Performed: 06/08/24919
Requesting Provider: RENATO Perez
Performing Provider: Dr. Schmitt/RENATO Cummings
Reason for Consultation: GI Bleed
Medical History
Chief Complaint / HPI
Chief Complaint: hematemesis/rectal bleeding
History of Present Illness:
44-year-old male with past medical history of paroxysmal atrial fibrillation status post ablation, CVA status post tPA, Jani-en-Y gastric bypass, gastric ulcers post Jani-en-Y gastric bypass, GI bleed after tPA administration that stopped
spontaneously (patient states they were unsure where this was located), scrotal postoperative hematoma, lower extremity cellulitis and hypertension who presents to the emergency room with episode of bright red blood vomiting followed by 4 episodes
of bright red blood per rectum. Asked to evaluate for the same. The patient states that he has had right lower extremity wound as well as right knee pain. The patient has been taking Advil 600 mg daily for couple weeks. He also uses Tylenol
regular strength 3 pills daily as well as naproxen 500 mg twice a day. He has been using this consistently. He developed abdominal discomfort turning with nausea followed by the vomiting of blood. Then the quick passage of brown stool followed by
4 episodes of bleeding. At that point he states he tried to get up he felt dizzy lightheaded. He proceeded to come to the emergency room. He has had no further episodes of passing blood either upper or lower. He states his passing of flatus
smells foul. His baseline hemoglobin is in the 8 range. He does have a history of gastric ulcer status post Jani-en-Y gastric bypass. He was on PPI for a while but has not been on it since. He states that this was approximately 7 years ago. He
does not recall ever being told not to use NSAIDs. He is a former smoker. He does not drink any alcohol. Patient presented with a hemoglobin of 5.4. He received 2 units packed red blood cells and hemoglobin is currently 5.8. He will receive 2
more units packed red blood cells. Patient denies any fevers, chills, melena, dysphagia or dyne aphasia. No early satiety or unintentional weight loss. He does state that he has had an endoscopy and colonoscopy within the past 7 years at [facility] [place]. He does not recall any of the results. He does recall having ulcers on endoscopy in the past after having Jani-en-Y gastric bypass.
Past Medical History
Past Medical History: Arrhythmias (Paroxysmal A-fib status post ablation), CVA (Status post tPA), GERD, HTN and Other (Cellulitis, right lower extremity wound, prior gastric ulcers after Jani-en-Y gastric bypass)
Past Surgical History: Cardiac (Cardiac ablation) and Other (Jani-en-Y gastric bypass, elbow surgery, adenoidectomy/tonsillectomy)
Social History
Tobacco: Former Smoker
Alcohol: None
Drug: None
Personal: Single
Living: With Roomate
Employment: Employed
Family History
Family History: Other (No family history gastrointestinal malignancy or IBD, father CVA, mother kidney failure)
Allergies / Home Medications
Allergy/AdvReac Type Severity Reaction Status Date / Time
NKA - No Known Allergies Allergy Unknown Uncoded 06/07/24 22:12
�Medication �Instructions �Recorded
No Meds [No Current Medications] 01/08/24
Review of Systems
-
All other systems: A 12 pt ROS was Negative except as stated above in HPI
Vital Signs
Temp Pulse Resp BP Pulse Ox
99.7 F 83 21 116/70 93
06/08/24 02:47 06/08/24 08:00 06/08/24 08:00 06/08/24 08:00 06/08/24 08:05
Physical Exam
Exam
General: No Apparent Distress
HEENT: Anicteric
Respiratory: Clear
Cardiac: Regular Rhythm
GI: Soft, Non Tender, Non Distended and Normal Bowel Sounds
Musculoskeletal: Edema (Trace bilateral lower extremity edema)
Skin: Warm and Dry
Neuro: AO x 3
Psych: Calm
Results
WBC 22.3 10^3/uL (4.8-10.8) H 06/08/24 06:19
Hgb 5.8 g/dL (13.0-18.0) L* 06/08/24 07:47
Hct 18.5 % (39.0-52.0) L* 06/08/24 07:47
MCV 72.0 fL (80.0-94.0) L 06/08/24 06:19
Plt Count 673 10^3/uL (130-400) H 06/08/24 06:19
Absolute Neuts (auto) 24.0 10^3/uL (1.4-6.5) H 06/07/24 20:34
PT 15.5 Sec (11.4-14.6) H 06/07/24 20:34
INR 1.18 06/07/24 20:34
APTT 30.8 Sec (23.4-35.0) 06/07/24 20:34
Sodium 136 mmol/L (135-145) 06/07/24 20:34
Potassium 4.2 mmol/L (3.5-5.1) 06/07/24 20:34
Chloride 101 mmol/L (98-107) 06/07/24 20:34
Carbon Dioxide 20 mmol/L (22-30) L 06/07/24 20:34
BUN 32 mg/dl (9-20) H 06/07/24 20:34
Creatinine 0.6 mg/dL (0.7-1.3) L 06/07/24 20:34
Calcium 7.6 mg/dl (8.4-10.2) L 06/07/24 20:34
Total Bilirubin 0.5 mg/dl (0.2-1.3) 06/07/24 20:34
AST 72 U/L (17-59) H 06/07/24 20:34
ALT 23 U/L (0-50) 06/07/24 20:34
Alkaline Phosphatase 114 U/L (38-126) 06/07/24 20:34
Diagnostic Image Results:
CT Abd Pelvis Angio with and without IV:
Some high attenuation density associated with prior gastric bypass limiting evaluation without gross findings to suggest active gastric bleeding. Please note, CT has decreased sensitivity for peptic ulcer disease. No findings to suggest active
colonic bleeding.
Findings likely representing incidental small bowel transient intussusception.
Right lower lobe subsegmental atelectasis and trace pleural effusion.
Mild pericardial thickening versus small pericardial effusion.
Small volume free fluid in the dependent true pelvis are uncertain etiology.
No demonstrable renal excretion bilaterally likely related to timing of imaging. Suggest correlation with recent renal function.
Study preliminarily interpreted by Dr. Rashid from [facility], findings discussed with RENATO Shields in emergency department at 2308 hours on June 07, 2024.
Electronically signed by Lewis Licea MD, 06/08/2024 7:41 AM
Prior GI Procedures:
EGD: 'at [facility]' 'gastric ulcers' this was s/p gastric bypass- 5-7 yrs ago
Colonoscopy: 'at [facility]', unknown results 7-10 yrs ago
Assessment / Plan
-
44-year-old male with past medical history of paroxysmal atrial fibrillation status post ablation, CVA status post tPA, Jani-en-Y gastric bypass, gastric ulcers post Jani-en-Y gastric bypass, GI bleed after tPA administration that stopped
spontaneously (patient states they were unsure where this was located), scrotal postoperative hematoma, lower extremity cellulitis and hypertension who presents to the emergency room with episode of bright red blood vomiting followed by 4 episodes
of bright red blood per rectum. Asked to evaluate for the same. In the setting of NSAID use Advil 600 mg daily as well as naproxen 550 mg twice daily. With prior history of gastric ulcer status post Jani-en-Y gastric bypass. Hemoglobin currently
5.8 up from 5.4 status post 2 units packed red blood cells. Patient continues to be n.p.o. at present time. On pantoprazole 40 mg IV twice daily. No further signs of bleeding since prior to arrival. Patient is going to receive 2 more units
packed red blood cells. Will anticipate EGD today after transfusion. Discussed with RN. Discussed with internal medicine. Discussed with patient who is agreeable.
Impression:
Acute GI bleed, likely upper GI bleed with marginal ulcer. Less likely lower GI bleed.
Acute blood loss anemia
Chronic anemia
Cellulitis, was given Zosyn and vancomycin. Continues on vancomycin at this time
Plan:
-Transfused 2 units packed red blood cells as ordered.
-Continue pantoprazole 40 mg IV twice daily
-N.p.o.
-Will hold packed red blood cells for EGD.
-Plan on urgent endoscopy today after transfusion above, likely around 1430 this afternoon.
-Trend hemoglobin every 6 hours
-Check magnesium level as patient has a prolonged QTc 494 on admission EKG. Discussed with internal medicine.
-CBC, CMP in a.m.
-Further recommendations to be forthcoming.
-
-
Thank you for consultation and allowing me to participate in the patient's care. Please call the macaroni press operator GI physician during the after hours with any questions or concerns.
[2024-06-08 11:38] LABS: Magnesium 2.5 mg/dl (1.6-2.3)
[2024-06-08] MEDS: PROTONIX 100 IV (15:30)
--- NOTE | 2024-06-08 16:26 | PTCARENOTE ---
pt recieved 2 units prbcs without incident for hemoglobin of 5.8 this am. repeat hemoglobin ordered at 1700. pt had endo in gi lab and is returned to room. protonix drip started. pt c/o right knee pain with any slight movement or pressure, yells out
when moving from bed to stretcher. medicated prn with 0.5 mg dilaudid with good pain control.
--- NOTE | 2024-06-08 17:09 | CM ---
Patient who is s/p transfusion and endoscopy today. Room air. NPO/IVF. Receiving IV Abx, IV Dilaudid prn.
Attempted to meet with patient who was off the unit. Met with patient's SO Kailee;
the patient has been residing in a 3 story [place] with 2 flights inside stairs up to bedroom/bath, with about 12 other guys.
Kailee volunteers that he was living with his brother and then with friends until he became incarcerated for 90 days due to DUI and was placed in a [place].
He was independent in ADLs and ambulation.
Recently patient having trouble walking due to right knee swelling.
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
Kailee denies any housing/food/utility/transport insecurity.
The patient has no DME or prior VN.
*Kailee unsure if patient has a PCP.
Pharmacy - [facility]
Patient would benefit from PT/OT Evals---> message to Dr Duran.
Plan follow up after seen by PT/OT.
[2024-06-08 18:39] LABS: Hematocrit 24.3 % (39.0-52.0); Hemoglobin 7.5 g/dL (13.0-18.0)
[2024-06-08] MEDS: VANCOCIN 275 MG IV (18:39)
[2024-06-08] MEDS: D5/0.45%NACL IV (21:19)
--- NOTE | 2024-06-08 22:53 | PTCARENOTE ---
assumed care of patient. pt is AAOx3- able to make needs known. VSS. pulse ox 93% RA, dropping while sleeping, 2L NC applied. right calf wound intact, redness and warmth noted. painful per patient, IV dilaudid given per MAR. pt tried having a BM
with no success. IV fluids and PPI gtt infusing. h/h to be drawn at 2300 per order. care ongoing.
[2024-06-08 23:24] LABS: Hematocrit 23.2 % (39.0-52.0); Hemoglobin 7.1 g/dL (13.0-18.0)
[2024-06-09] VITALS (13 sets, daily range): BP systolic 124–140; BP diastolic 67–112
[2024-06-09] MEDS: PROTONIX 100 IV ×3 (00:55→23:39)
[2024-06-09] MEDS: DILAUDID 0.5 MG IV ×4 (02:28→19:19)
[2024-06-09 05:10] LABS: Mean Corp Hgb Conc. 31.8 g/dL (33.0-37.0); Mean Corpuscular Hgb 24.1 pg (27.0-31.0); Mean Corpuscular Volume 75.9 fL (80.0-94.0); Mean Platelet Volume 8.9 fL (7.4-10.4); Platelet Count 607 10^3/uL (130-400); Red Cell Dist. Width 20.3 % (11.5-14.5); White Blood Cell Count 18.3 10^3/uL (4.8-10.8)
[2024-06-09 05:32] LABS: Blood Urea Nitrogen 15 mg/dl (9-20); Calcium 7.3 mg/dl (8.4-10.2); Carbon Dioxide 29 mmol/L (22-30); Chloride 101 mmol/L (98-107); Estimated Creatinine Clearance > 125 ml/min; Glucose 97 mg/dl (70-99); Sodium 133 mmol/L (135-145); eGFR > 60.00
--- NOTE | 2024-06-09 06:05 | PTCARENOTE ---
pt with lots of c/o pain to right knee. screaming out in pain with any movement. medicated with IV dilaudid per AUG. pt reports it does help for a little bit.
[2024-06-09] MEDS: VANCOCIN 275 MG IV ×2 (06:24→17:20)
--- NOTE | 2024-06-09 06:44 | PTCARENOTE ---
pt with large loose BM this AM. BM black/burgundy in color.
[2024-06-09] MEDS: D5/0.45%NACL 1000 IV (08:55)
--- NOTE | 2024-06-09 09:03 | W.PN.HOSP.TC ---
Today's Communication/Plan
-
Knee xray today. MRI of knee today. GI to decide when he can have PO.
Assessment / Plan
Assessment / Plan
44 y.o with acute Gi bleed and symptomatic anemia. Gi bleed started after NSAID use x 4 days (naprosyn 250 - 500mg bid) for knee pain. No blood thinners. Hgb at time of admit 6.1, previously 10.
PLAN:
1. GI bleed - Acute GI bleed - deep cratered ulcer found on EGD
- keep today in IMU - H/H still low and going in wrong direction
- transfusing 2 more units for goal Hgb of 8 if h/h at 11:00 is 7.0 or lower.
- Continue h&h q6 until H/H stable and not decreasing
- Continue NPO, Can eat when cleared by GI
- Continue gentle maintenance fluids with d5 1/2NS
- continue ppi iv bid
- GI consult appreciated
2. Cellulitis - Right leg cellulitis surrounding a persistent wound, marked leukocytosis, zosyn and vanc given in ED
- continue vancomycin, check mrsa screen
- blood cultures if febrile
- pain control with tylenol and low dose opioids as bp tolerates
- Given severe pain with movement, I am concerned this may have evolved into a septic joint
MRI of right knee today
3. Right knee injury
-pain control with opioids as needed while dealing with GI bleed
-PT consult once GI bleed resolved and H/H stable (not stable yet)
- xray of knee today
4. Morbid Obesity with BMI of 40.2, h/o gastric bypass in past
-outpatient weight management
5. Normal Ca. Ca corrects to 8.88
- treatment not needed
6. Mild hyponatremia of 133 - likely from decreased PO
-check again tomorrow
-if lower and he is not eating, switch fluids to NS.
DVT PPX - SCD on left leg
Code status full code
Anticipated Discharge: > 48 hours
Subjective/Interval History
-
Date of Service: June 09, 2024
Continues to have severe knee pain. Wants to eat.
Objective Data
-
Labs:
Laboratory Results
06/08/24 06/09/24 06/09/24
23:14 04:49 11:00
WBC 18.3 H
Hgb 7.1 L 7.0 L Pending
Hct 23.2 L 22.0 L Pending
Plt Count 607 H
Sodium 133 L
Potassium 4.0
Chloride 101
Carbon Dioxide 29
BUN 15
Creatinine 0.6 L
Glucose 97
Calcium 7.3 L
Vital Signs:
Vital Signs
Temp Pulse Resp BP Pulse Ox
99.5 F 76 24 132/82 99
06/09/24 07:31 06/09/24 06:00 06/09/24 06:00 06/09/24 06:00 06/09/24 06:00
I&O
06/08/24 06/09/24 06/10/24
06:59 06:59 06:59
Intake Total 980 / 980 1295 / 1295
Output Total 600 / 600 900 / 900
Balance 380 / 380 395 / 395
Review of Systems
-
History Source: Patient
All other systems: Reviewed and negative
Musculoskeletal: Reports Joint Pain and Joint Swelling
Physical Exam
-
General: Well Developed, Well Nourished and Morbidly Obese
HEENT: Nose Appears Normal and Ears Appear Normal
Respiratory: Clear to Auscultation
Cardiac: Regular Rhythm and S1/S2
GI: Soft, Nontender and Nondistended
Musculoskeletal: No Clubbing, No Cyanosis, Edema, Left Upper Extrem, Edema, Right Lower Extrem and Other (swollen, warm, right knee)
Skin: Warm and Dry
Neuro: Awake, Alert, Oriented and AO x 3
Psych: Calm
Data Reviewed
-
Labs: Labs Reviewed by me
--- NOTE | 2024-06-09 09:47 | PHA.VAN.FU ---
Vancomycin Assessment / Plan
- Assessment
Renal Function: Stable (appears similar to baseline)
WBC's are: Trending Down
In the past 24 hrs, patient has been: Afebrile
- Dosing Plan
Continue: vancomycin 1250 mg q12h
- Monitoring Plan
Peak Level: 06/09 @ 21:00
Trough Level: 06/10 @ 05:30
- Follow Up
Pharmacy will continue to follow.
Vancomycin Follow UP
- -
Patient Age: 44
Patient Sex: Male
Vancomycin Day #: 2
Indication: Skin And Soft Tissue
Requesting Provider: Sam
Pertinent Antimicrobial Allergies:
nka
Height / Weight:
Height 5 ft 6 in
Actual Weight 113 kg
Adjusted BW in k.5
Pertinent Past Medical History: CVA s/p tPA
- Vital Signs / Lab Results
Temp Pulse Resp BP Pulse Ox
99.5 F 76 24 132/82 99
06/09/24 07:31 06/09/24 06:00 06/09/24 06:00 06/09/24 06:00 06/09/24 06:00
Lab Results - Hematology
06/07/24 06/08/24 06/09/24
20:34 06:19 04:49
WBC 27.9 H 22.3 H 18.3 H
Lab Results - Chemistry
06/07/24 06/09/24
20:34 04:49
BUN 32 H 15
Creatinine 0.6 L 0.6 L
Estimated Creat Clear > 125
Albumin 2.4 L
06/07/24
22:07
Lactic Acid 1.2
Microbiology Results
06/08/24 06:20 MRSA Screen - Preliminary
Nose Culture in Progress
06/07/24 21:47 Gram Stain - Preliminary
Leg - Right
[2024-06-09 12:41] LABS: Hematocrit 24.8 % (39.0-52.0); Hemoglobin 7.8 g/dL (13.0-18.0)
--- NOTE | 2024-06-09 15:19 | PTCARENOTE ---
Patient AAOx3, VSS. C/o pain of R knee. PRN dilaudid helping, went for knee XR and MRI today. Hgb improved. Had 1 burgundy BM this morning. Patient hungry, explained current diet order of NPO with sips. Requiring 2L NC when asleep to maintain sats
>92%. Education provided to patient and girlfriend about plan of care. Continuing to closely monitor.
--- NOTE | 2024-06-09 15:36 | W.PN.GI.CBS2 ---
Today's Communication / Plan
-
As per plan
Assessment / Plan
-
44-year-old male with past medical history of paroxysmal atrial fibrillation status post ablation, CVA status post tPA, Jani-en-Y gastric bypass, gastric ulcers post Jani-en-Y gastric bypass, GI bleed after tPA administration that stopped
spontaneously (patient states they were unsure where this was located), scrotal postoperative hematoma, lower extremity cellulitis and hypertension who presents to the emergency room with episode of bright red blood vomiting followed by 4 episodes
of bright red blood per rectum. Asked to evaluate for the same. In the setting of NSAID use Advil 600 mg daily as well as naproxen 550 mg twice daily. With prior history of gastric ulcer status post Jani-en-Y gastric bypass. Hemoglobin currently
5.8 up from 5.4 status post 2 units packed red blood cells. Patient continues to be n.p.o. at present time. On pantoprazole 40 mg IV twice daily. No further signs of bleeding since prior to arrival. Patient is going to receive 2 more units
packed red blood cells. Will anticipate EGD today after transfusion. Discussed with RN. Discussed with internal medicine. Discussed with patient who is agreeable.
EGD 06/08/24:
The examined esophagus was normal.
Small gastric pouch c/w prior bypass, widely patent anastomosis
One large > 1cm non-bleeding cratered ulcer which was deep with multiple
areas of red spots, vessels was found distal to the gastrojejunal
anastomosis. Area was successfully injected with 5 mL of a 0.1 mg/mL
solution of epinephrine, the ulcer was too deep to safely treat which
alternative therapies.
Impression: - Normal esophagus.
- Non-bleeding deep jejunal ulcer. Injected.
- No specimens collected.
Impression:
Acute GI bleed, secondary to greater than 1 cm nonbleeding cratered ulcer with deep multiple areas of red spots, vessels found distal to gastrojejunal anastomosis
Acute blood loss anemia
Chronic anemia
Cellulitis, was given Zosyn and vancomycin. Continues on vancomycin at this time
Plan:
-Continue Protonix drip at least until tomorrow
-N.p.o. except sips of clears until tomorrow. Discussed with patient rationalization for such conservative treatment.
-If hemoglobin remains stable and no signs of bleeding we will likely advance
-If patient rebleeds will likely need IR embolization. The ulcer was too deep to safely treat. It was injected with epinephrine during EGD on 06/08/2024.
-Transfuse if hemoglobin less than 7
-Trend hemoglobin
-Will need repeat EGD to document healing in 8 to 12 weeks
-Patient never allowed to have NSAIDs. Discussed with patient again at length.
Subjective
Subjective
Date of Service: June 09, 2024
Patient with 2 episodes of rectal bleeding overnight. Last 1 being burgundy liquid. Vital signs remained stable. Hemoglobin 7.8 this afternoon. Patient has been transfused a total of 4 units packed red blood cells. He is n.p.o. with sips of
clears only. He remains on pantoprazole drip. Will continue this at least until tomorrow given the severity of his ulcer.
Objective
Data Reviewed
Laboratory Data:
Laboratory Results
06/09/24 12:18
06/09/24 04:49
Laboratory Results
PT 15.5 Sec (11.4-14.6) H 06/07/24 20:34
INR 1.18 06/07/24 20:34
APTT 30.8 Sec (23.4-35.0) 06/07/24 20:34
Magnesium 2.5 mg/dl (1.6-2.3) H 06/08/24 06:19
Total Bilirubin 0.5 mg/dl (0.2-1.3) 06/07/24 20:34
AST 72 U/L (17-59) H 06/07/24 20:34
ALT 23 U/L (0-50) 06/07/24 20:34
Alkaline Phosphatase 114 U/L (38-126) 06/07/24 20:34
Vital Signs and I&O:
Vital Signs
Temp Pulse Resp BP Pulse Ox
98.7 F 87 15 136/77 96
06/09/24 11:35 06/09/24 12:00 06/09/24 12:00 06/09/24 12:00 06/09/24 12:00
I&O
06/08/24 06/09/24 06/10/24
06:59 06:59 06:59
Intake Total 980 / 980 1295 / 1295
Output Total 600 / 600 900 / 900
Balance 380 / 380 395 / 395
Physical Exam
Physical Exam
HEENT: Anicteric
Cardiology: Normal Sinus Rhythm
Pulmonary: Clear
GI: Soft, Non Distended, Non Tender and Normal Bowel Sounds
[2024-06-09 21:58] LABS: Vancomycin Peak 13.6 ug/ml (18-26)
[2024-06-09] MEDS: TYLENOL 650 MG PO (23:10)
[2024-06-10] VITALS (15 sets, daily range): BP systolic 117–148; BP diastolic 71–86
[2024-06-10] MEDS: DILAUDID 0.5 MG IV ×6 (00:48→20:53)
--- NOTE | 2024-06-10 03:42 | PTCARENOTE ---
Patient AAOx3. NSR on tele. Pt had periods of apnea put on 2L NC. O2 sat 95%. Pt c/o right knee pain, administered PRN tylenol. Pt states he did not get any relief. Pt states pain in 01/21, administered PRN Dilaudid see AUG. No BM overnight. Voiding
using the urinal. Pt's significant other stays overnight. NPO with sips of clears. Protonix gtt infusing. Frequent repositioning as tolerated with the knee pain. Right leg elevated. Ice on the right knee. Pt rings appropriately, call garcia is within
reach.
[2024-06-10 06:57] LABS: Blood Urea Nitrogen 9 mg/dl (9-20); Calcium 7.6 mg/dl (8.4-10.2); Carbon Dioxide 30 mmol/L (22-30); Chloride 99 mmol/L (98-107); Estimated Creatinine Clearance > 125 ml/min; Glucose 90 mg/dl (70-99); Potassium 4.1 mmol/L (3.5-5.1); Sodium 133 mmol/L (135-145); eGFR > 60.00
[2024-06-10 07:06] LABS: Vancomycin Trough 6.8 ug/ml (5-20)
[2024-06-10] MEDS: VANCOCIN 275 MG IV (07:23)
[2024-06-10 07:51] LABS: Hematocrit 23.3 % (39.0-52.0); Mean Corpuscular Hgb 24.3 pg (27.0-31.0); Mean Corpuscular Volume 80.9 fL (80.0-94.0); Mean Platelet Volume 8.9 fL (7.4-10.4); Platelet Count 514 10^3/uL (130-400); Red Blood Cell Count 2.88 10^6/uL (4.70-6.10); Red Cell Dist. Width 21.6 % (11.5-14.5); White Blood Cell Count 13.8 10^3/uL (4.8-10.8)
--- NOTE | 2024-06-10 08:58 | PHA.VAN.FU ---
Vancomycin Assessment / Plan
- Assessment
Renal Function: Stable
WBC's are: Trending Down
In the past 24 hrs, patient has been: Afebrile
- Assessment - Therapeutic Drug Monitoring
Extrapolated Cmax (mcg/mL): 16.8
Peak level was drawn: Appropriately
Extrapolated Cmin (mcg/mL): 7.4
Trough Drawn: Appropriately
Levels were drawn: At steady state
Calculated AUC (mcg*h/mL): 278
Calculated ke: 0.0779
Calculated half life (H): 8.9
Calculated Vd (L): 115.31
Calculated Vanc CL (ml/min): 149.68
- Dosing Plan
Adjust Regimen to: 2000MG Q12H
New Regimen Predicts: AUC (480), Peak (28.6), Trough (13.1)
Dosing Comments: T1/2 IS GREATER THAN 8HR WOULD KEEP Q12H INTERVAL
- Monitoring Plan
No level(s) ordered at this time: CONSIDER AT STEADY STATE
- Follow Up
Pharmacy will continue to follow.
Vancomycin Follow UP
- -
Patient Age: 44
Patient Sex: Male
Vancomycin Day #: 3
Indication: Skin And Soft Tissue
Requesting Provider: Sam
Pertinent Antimicrobial Allergies:
nka
Height / Weight:
Height 5 ft 6 in
Actual Weight 113 kg
Adjusted BW in k.5
Pertinent Past Medical History: CVA s/p tPA
- Vital Signs / Lab Results
Temp Pulse Resp BP Pulse Ox
97.8 F 71 19 128/80 96
06/10/24 03:40 06/10/24 06:00 06/10/24 06:00 06/10/24 06:00 06/10/24 07:53
Lab Results - Hematology
06/07/24 06/08/24 06/09/24
20:34 06:19 04:49
WBC 27.9 H 22.3 H 18.3 H
06/10/24
06:29
WBC 13.8 H
Lab Results - Chemistry
06/07/24 06/09/24 06/10/24
20:34 04:49 06:29
BUN 32 H 15 9
Creatinine 0.6 L 0.6 L 0.6 L
Estimated Creat Clear > 125 > 125
Albumin 2.4 L
06/07/24
22:07
Lactic Acid 1.2
Microbiology Results
06/07/24 21:47 Wound Culture - Preliminary
Leg - Right Gram Stain - Preliminary
06/08/24 06:20 MRSA Screen - Preliminary
Nose Culture in Progress
Therapeutic Drug Monitoring
Vancomycin Peak 13.6 ug/ml (18-26) L 06/09/24 21:35
Vancomycin Trough 6.8 ug/ml (5-20) 06/10/24 06:29
[2024-06-10] MEDS: VANCOCIN 150 IV (11:59)
[2024-06-10 12:57] LABS: Erythrocyte Sed Rate 80 mm/hour (0-20)
--- NOTE | 2024-06-10 13:01 | W.PN.HOSP.TC ---
Today's Communication/Plan
-
Ortho consult for right knee arthrocentesis
Continue IV vancomycin
CBC every 6 hours
IV PPI drip
Consider advancing diet at GIs discretion
Assessment / Plan
Assessment / Plan
#Acute GI bleed of gastrojejunal anastomoses
#Acute blood loss anemia
#H/O gastric bypass
-S/p EGD that showed deep cratered ulcer at GJ anastomosis
-Status post 3 units of PRBC; hemoglobin today 7.0; currently on PPI drip
-Remains on clear liquids as of this morning, patient asks for advancement
-Will continue to trend CBC every 6 hours, hemoglobin goal >7
-Plan to advance diet as GI seems appropriate
-Continue IV PPI drip, absolute avoidance of NSAIDs
#Suspected septic arthritis of right knee
#Right knee effusion and pain
#Cellulitis of the RLE
-Was started on IV vancomycin for presumed cellulitis of the right lower extremity
-Recently had right knee injury; has had worsening pain here
-Currently with leukocytosis; MRI yesterday showed effusion of the right knee
-Spoke with orthopedics, ordered inflammatory markers today
-Suspect he will need arthrocentesis and fluid studies to assess for septic arthritis
-Continue with IV vancomycin for now
-Trend CBC, temperature curve, inflammatory markers
#Morbid obesity s/p gastric bypass
-BMI 40, affects all aspects of care
-Could consider GLP-1 as outpatient
#Paroxysmal AF s/p ablation
-No longer on anticoagulants nor rate/rhythm controlling agents
-Heart rate WNL here
#H/O CVA s/p tPA
-Likely related to previous AF history
-No residual deficits
DVT prophylaxis: SCD
Diet: Clears, advance per GI
CODE STATUS: Full code
Anticipated Discharge: > 48 hours
Subjective/Interval History
-
Date of Service: June 10, 2024
Seen and examined at the bedside. No acute events reported overnight. AFVSS this morning
Continues to have significant right knee pain, WBC 13.8 today. MRI yesterday showed moderate right knee effusion
Denies any acute complaints such as chest pain, fevers or chills, dyspnea. Request having his diet advanced, denies any blood in stool though has not had recent bowel movement
Objective Data
-
Labs:
Laboratory Results
06/10/24
06:29
WBC 13.8 H
Hgb 7.0 L
Hct 23.3 L
Plt Count 514 H
Sodium 133 L
Potassium 4.1
Chloride 99
Carbon Dioxide 30
BUN 9
Creatinine 0.6 L
Glucose 90
Calcium 7.6 L
Vital Signs:
Vital Signs
Temp Pulse Resp BP Pulse Ox
98.4 F 71 19 128/80 96
06/10/24 07:45 06/10/24 06:00 06/10/24 06:00 06/10/24 06:00 06/10/24 07:53
I&O
06/09/24 06/10/24 06/11/24
06:59 06:59 06:59
Intake Total 1295 / 1295 480 / 480 120 / 120
Output Total 900 / 900 400 / 400 200 / 200
Balance 395 / 395 80 / 80 -80 / -80
Review of Systems
-
History Source: Patient
All other systems: Reviewed and negative
Physical Exam
-
General: Well Developed, No Apparent Distress, Comfortable and Morbidly Obese
HEENT: Normocephalic, Atraumatic, Moist Mucous Membranes and Anicteric
Respiratory: Clear to Auscultation and Non Labored Respirations; Negative Accessory Resp Muscle Use
Cardiac: Regular Rhythm and S1/S2; Negative Murmur, Rub or Gallop
GI: Soft, Nontender, Nondistended, Normal Bowel Sounds and No Hepatosplenomegaly
Musculoskeletal: No Clubbing, No Cyanosis, No Edema and Other (Warm, erythematous, swollen right knee with tenderness to palpation)
Skin: Warm, Dry and Rash (Erythema over right knee/RLE)
Neuro: AO x 3 and Nonfocal/Grossly Intact
Psych: Calm
Data Reviewed
-
MRI: Report Reviewed by me, Discussed with Physician (Orthopedics), Discussed with Patient and Discussed with Family
Labs: Labs Reviewed by me, Discussed with Physician (Orthopedics), Discussed with Patient and Discussed with Family
--- NOTE | 2024-06-10 15:03 | CON.ORTHO ---
Consultation
-
Date/Time Consultation Requested: Jun 06
Date/Time Consultation Performed: Jun 06
Requesting Provider: Cristopher
Performing Provider: Vasiliy for Ritting
Reason for Consultation: Right knee pain r/o septic joint ([place])
Consultation - Orthopedics
History
HPI:
Requested in consult by Dr. Nicholas to this very pleasant a 44 year old white male with PMH Afib s/p ablation and HTN who presented Santhosh evening c/o GI bleeding. States that Santhosh morning he vomited blood. After this he had multiple stools
with dark red blood. He was admitted to the IMU and has been attended to by the Hospitalist and GI teams with inpatient endoscopy. During admission he began complaining of RLE pain. Reports an injury/cut to his posterior right calf about 2 months
ago that has been slow to heal. Concerns for surrounding cellulitis which has caused a moderate amount of swelling of the RLE. He is currently on IV ABX and there has been some improvement. Also reports a twisting episode to the right knee about 2
weeks ago which exacerbated his RLE pain. Xrays and MRI of the knee were requested which have revealed an effusion and some nonspecific inflammatory/swelling of his surrounding knee musculature. Could not definitely rule out a septic right knee with
these diagnostics therefore our input was requested. At present his WBC is slightly elevated and his CRP just came back at 138 and ESR of 80. Also of note nasal swab was MRSA+ and his posterior calf wound returned with polymicorbes.
Past History
ED Past Medical History: Arrthythmia (Afib), HTN and Other (Inguinal hernia)
ED Past Surgical History: Cardiac (Ablation), Orthopedic (ORIF right elbow. ), Tonsilectomy (and adenoids) and Other (Hernia repair, Gastric bypass, )
Social History
Tobacco: Vaping
Alcohol: None
Drug: None
Personal: Single
Living: with family
Employment: Employed
Family History
Noncontributory
Review of Systems
Review of Systems
All Other Systems: ROS reviewed and negative except as documented in HPI and ROS
Constitutional: Reports no symptoms; Denies fever or chills
EENT: Reports no symptoms
Respiratory: Reports trouble breathing; Denies cough
Cardiac: Reports no symptoms; Denies chest pain
ABD/GI: Reports nausea, vomiting (Once) and bloody stools; Denies abdominal pain
: Reports no symptoms; Denies dysuria, frequency or urgency
Musculoskeletal: Reports no symptoms
Skin: Reports other (Open wound right calf)
Neurological: Reports dizzy; Denies headache
Psychiatric: Reports no symptoms
Allergies / Home Medications
Allergy/AdvReac Type Severity Reaction Status Date / Time
NKA - No Known Allergies Allergy Unknown Uncoded 06/07/24 22:12
�Medication �Instructions �Recorded
No Meds [No Current Medications] 01/08/24
Vital Signs / Lab Results
Temp Pulse Resp BP Pulse Ox
98.4 F 71 19 128/80 96
06/10/24 07:45 06/10/24 06:00 06/10/24 06:00 06/10/24 06:00 06/10/24 07:53
06/10/24 06:29
06/10/24 06:29
Assessment / Plan
PE: Afeb. Bedrest. Endorses significant pain about the RLE, mainly in the calf and lower leg. Some atrophic changes noted. Wound over the posterior right calf is dressed. Some mild surrounding erythema which is likely a resolving cellulitis. Pain
with very little movement of the leg and light touch of the skin. Specifically the right knee is not erythematous or significantly warm. There is no significant intraarticular effusion at present. ROM difficult due to guarding and minimal movement
of entire leg is quite painful. To palpation pain generally about the knee. Palpable pulses distally. Compartments of the RLE supple without concerning evidence of compartment syndrome
Diagnostics: Xray without acute findings. MRI with effusion noted. Some nonspecific inflammation/swelling noted in the surrounding musculature of the lower leg, including the VMO, popliteus, and more so in the proximal gastroc/soleus complex.
possible fluid collections which could be the result of musculature strain/injury. No obvious abscess. ACL is thinned out. No obvious meniscal tear. No fractures noted. Subcutaneous edema noted throughout.
Impression: Resolving RLE cellulitis. Right knee pain, possible septic right ([place]) knee.
Plan: Unfortunately we can't hang our hat on anything definitive here. Discussed with attending Hospitalist, Dr. Nicholas. Septic right knee is a possibility, but not a clear picture. He does have a resolving RLE cellulitis. MRI is not conclusive.
Clinically not much of an effusion, but feel an aspiration is warranted. CRP/ESR/WBC are elevated. He does have a 2 week history of a right knee injury, as well. He is currently on IV ABX, so I discussed with both he and his the possibility his
right knee fluid will not yield. After obtaining verbal consent, under sterile conditions, I aspirated his right knee for 4cc bloody fluid from the joint. Unfortunately enough fluid for GS and C&S only. Will follow Cx results and hope for a yield.
We have tentatively posted him to the OR schedule tomorrow for an arthroscopic washout of his right knee. Surgical consent has been obtained and placed to his chart. Operative site has been marked as the right knee. He will be NPO pMN. Will reassess
in the AM, and possibly proceed.
[2024-06-10] MEDS: PROTONIX 100 IV (15:14)
--- NOTE | 2024-06-10 17:07 | W.PN.GI.CBS2 ---
Today's Communication / Plan
-
Full liquid diet
Monitor H&H
Continue PPI
Assessment / Plan
-
44-year-old male with past medical history of paroxysmal atrial fibrillation status post ablation, CVA status post tPA, Jani-en-Y gastric bypass, gastric ulcers post Jani-en-Y gastric bypass, GI bleed after tPA administration that stopped
spontaneously (patient states they were unsure where this was located), scrotal postoperative hematoma, lower extremity cellulitis and hypertension who presents to the emergency room with episode of bright red blood vomiting followed by 4 episodes
of bright red blood per rectum. Asked to evaluate for the same. In the setting of NSAID use Advil 600 mg daily as well as naproxen 550 mg twice daily. With prior history of gastric ulcer status post Jani-en-Y gastric bypass. Hemoglobin currently
5.8 up from 5.4 status post 2 units packed red blood cells. Patient continues to be n.p.o. at present time. On pantoprazole 40 mg IV twice daily. No further signs of bleeding since prior to arrival. Patient is going to receive 2 more units
packed red blood cells. Will anticipate EGD today after transfusion. Discussed with RN. Discussed with internal medicine. Discussed with patient who is agreeable.
EGD 06/08/24:
The examined esophagus was normal.
Small gastric pouch c/w prior bypass, widely patent anastomosis
One large > 1cm non-bleeding cratered ulcer which was deep with multiple
areas of red spots, vessels was found distal to the gastrojejunal
anastomosis. Area was successfully injected with 5 mL of a 0.1 mg/mL
solution of epinephrine, the ulcer was too deep to safely treat which
alternative therapies.
Impression: - Normal esophagus.
- Non-bleeding deep jejunal ulcer. Injected.
- No specimens collected.
Impression:
Acute GI bleed, secondary to greater than 1 cm nonbleeding cratered ulcer with deep multiple areas of red spots, vessels found distal to gastrojejunal anastomosis
Acute blood loss anemia
Chronic anemia
Cellulitis, was given Zosyn and vancomycin. Continues on vancomycin at this time
Plan:
-Full liquid diet
-Continue monitor H&H
-Continue Protonix drip for another 24 hours and then 40 mg bid
-If patient rebleeds will likely need IR embolization. The ulcer was too deep to safely treat. It was injected with epinephrine during EGD on 06/08/2024.
-Transfuse if hemoglobin less than 7
-Trend hemoglobin
-Will need repeat EGD to document healing in 8 to 12 weeks
-Avoid NSAIDs
Total Time Spent with Patient (in minutes): 35
Subjective
Subjective
Date of Service: June 10, 2024
Denies any bleeding.
Objective
Data Reviewed
Laboratory Data:
Laboratory Results
06/10/24 06:29
06/10/24 06:29
Laboratory Results
PT 15.5 Sec (11.4-14.6) H 06/07/24 20:34
INR 1.18 06/07/24 20:34
APTT 30.8 Sec (23.4-35.0) 06/07/24 20:34
Magnesium 2.5 mg/dl (1.6-2.3) H 06/08/24 06:19
Total Bilirubin 0.5 mg/dl (0.2-1.3) 06/07/24 20:34
AST 72 U/L (17-59) H 06/07/24 20:34
ALT 23 U/L (0-50) 06/07/24 20:34
Alkaline Phosphatase 114 U/L (38-126) 06/07/24 20:34
Vital Signs and I&O:
Vital Signs
Temp Pulse Resp BP Pulse Ox
98.6 F 71 19 128/80 96
06/10/24 11:35 06/10/24 06:00 06/10/24 06:00 06/10/24 06:00 06/10/24 07:53
I&O
06/09/24 06/10/24 06/11/24
06:59 06:59 06:59
Intake Total 1295 / 1295 480 / 480 120 / 120
Output Total 900 / 900 400 / 400 200 / 200
Balance 395 / 395 80 / 80 -80 / -80
Physical Exam
Physical Exam
GI: Soft, Non Distended and Non Tender
[2024-06-10] MEDS: VANCOCIN 540 MG IV (17:31)
[2024-06-10 18:19] LABS: Hematocrit 22.4 % (39.0-52.0); Hemoglobin 6.9 g/dL (13.0-18.0); Mean Corp Hgb Conc. 30.8 g/dL (33.0-37.0); Mean Corpuscular Hgb 24.5 pg (27.0-31.0); Mean Corpuscular Volume 79.4 fL (80.0-94.0); Mean Platelet Volume 8.8 fL (7.4-10.4); Platelet Count 470 10^3/uL (130-400); Red Blood Cell Count 2.82 10^6/uL (4.70-6.10); Red Cell Dist. Width 21.8 % (11.5-14.5); White Blood Cell Count 14.7 10^3/uL (4.8-10.8)
[2024-06-10] MEDS: TYLENOL 650 MG PO (20:34)
[2024-06-10] MEDS: FLUSH (NSS) 1 FLUSH IV (20:52)
[2024-06-11] VITALS (24 sets, daily range): BP systolic 121–147; BP diastolic 67–95
[2024-06-11] MEDS: PROTONIX 100 IV ×3 (00:19→20:19)
[2024-06-11] MEDS: DILAUDID 0.5 MG IV ×6 (01:02→23:32)
[2024-06-11] MEDS: VANCOCIN 540 MG IV ×2 (05:57→17:35)
--- NOTE | 2024-06-11 07:07 | PTCARENOTE ---
No changes in assessment. ivabx. protonix gtt. R leg elevated. pt NPO and prepped for OR today. VSS. low grade temp in beginning of shift, tylenol given. DIlaudid given for knee pain
--- NOTE | 2024-06-11 08:39 | PHA.VAN.FU ---
Vancomycin Assessment / Plan
- Assessment
Renal Function: No New Labs Today
- Dosing Plan
Continue: 2000MG Q12H
- Monitoring Plan
No level(s) ordered at this time: CONSIDER NEXT FEW DAYS
- Follow Up
Pharmacy will continue to follow.
Vancomycin Follow UP
- -
Patient Age: 44
Patient Sex: Male
Vancomycin Day #: 4
Indication: Skin And Soft Tissue
Requesting Provider: Sam
Pertinent Antimicrobial Allergies:
nka
Height / Weight:
Height 5 ft 6 in
Actual Weight 113 kg
Adjusted BW in k.5
Pertinent Past Medical History: CVA s/p tPA
- Vital Signs / Lab Results
Temp Pulse Resp BP Pulse Ox
98.3 F 80 26 142/85 100
06/11/24 07:20 06/11/24 06:00 06/11/24 06:00 06/11/24 06:00 06/11/24 06:00
Lab Results - Hematology
06/09/24 06/10/24 06/10/24
04:49 06:29 18:02
WBC 18.3 H 13.8 H 14.7 H
Lab Results - Chemistry
06/09/24 06/10/24
04:49 06:29
BUN 15 9
Creatinine 0.6 L 0.6 L
Estimated Creat Clear > 125 > 125
Microbiology Results
06/07/24 21:47 Wound Culture - Preliminary
Leg - Right Staphylococcus aureus
Escherichia coli
Group G Streptococcus
Gram Stain - Preliminary
06/08/24 06:20 MRSA Screen - Final
Nose Staph aureus MRSA
Therapeutic Drug Monitoring
Vancomycin Peak 13.6 ug/ml (18-26) L 06/09/24 21:35
Vancomycin Trough 6.8 ug/ml (5-20) 06/10/24 06:29
--- NOTE | 2024-06-11 08:41 | W.PN.UPDATE ---
Update Note
Progress Note Update
Patient resting this AM. AM labs pending. No change in right knee exam. CRP/ESR quite elevated. Right fluid Cx hasn't yielded yet at this point. I think it would be prudent to proceed with arthroscopic I&D of the right knee, which the patient is in
agreement with. He will remain NPO. Continue IV ABX. Surgical consent was signed and is on the patient's chart. OR aware. Will be to follow our fracture cases- a bit later today- via Dr. Hairston. Will follow
[2024-06-11 09:42] LABS: Blood Urea Nitrogen 10 mg/dl (9-20); Calcium 7.1 mg/dl (8.4-10.2); Carbon Dioxide 30 mmol/L (22-30); Chloride 100 mmol/L (98-107); Estimated Creatinine Clearance > 125 ml/min; Glucose 90 mg/dl (70-99); Potassium 4.2 mmol/L (3.5-5.1); Sodium 132 mmol/L (135-145); eGFR > 60.00
[2024-06-11 09:49] LABS: Hematocrit 20.9 % (39.0-52.0); Hemoglobin 6.3 g/dL (13.0-18.0); Mean Corp Hgb Conc. 30.1 g/dL (33.0-37.0); Mean Corpuscular Hgb 24.1 pg (27.0-31.0); Mean Corpuscular Volume 80.1 fL (80.0-94.0); Mean Platelet Volume 8.8 fL (7.4-10.4); Platelet Count 414 10^3/uL (130-400); Red Blood Cell Count 2.61 10^6/uL (4.70-6.10); Red Cell Dist. Width 22.3 % (11.5-14.5); White Blood Cell Count 14.3 10^3/uL (4.8-10.8)
--- NOTE | 2024-06-11 09:53 | PTCARENOTE ---
Pt with critical HGB, HCT. Dr. Nicholas notified.
[2024-06-11 10:28] LABS: Erythrocyte Sed Rate 87 mm/hour (0-20)
--- NOTE | 2024-06-11 11:47 | W.PN.HOSP.TC ---
Today's Communication/Plan
-
Order 1 unit PRBC, repeat CBC in afternoon
Plan for OR today with orthopedics
Continue IV PPI drip
Advance diet per GI discretion
Assessment / Plan
Assessment / Plan
#Acute GI bleed of gastrojejunal anastomoses
#Acute blood loss anemia
#H/O gastric bypass
-S/p EGD that showed deep cratered ulcer at GJ anastomosis, s/p endoscopic epinephrine injection
-Status post 4 units of PRBC; hemoglobin today 7.0; currently on PPI drip
-Has been transitioned from clear liquids to full liquid diet by GI team
-GI following, mentions that he would need IR embolization if bleeding recurs
-Hemoglobin this morning down from 6.9-6.3, received another unit of blood yesterday
-Has remained hemodynamically stable, no symptoms of anemia at this point
Plan
-Will continue to trend CBC every 12 hours, hemoglobin goal >7
-Continue to advance diet as GI seems appropriate
-Continue IV PPI drip, absolute avoidance of NSAIDs
-Order 1 unit PRBC, repeat CBC in the evening
#Suspected septic arthritis of right knee
#Right knee effusion and pain
#Purulent cellulitis of the RLE
-Was started on IV vancomycin for presumed cellulitis of the right lower extremity
-Recently had right knee injury; has had worsening pain here; elevated inflammatory marker
-Currently with leukocytosis; MRI yesterday showed effusion of the right knee
-S/p arthrocentesis, culture sent though not enough of a sample for cell count
Plan
-Continue with IV vancomycin for now
-Trend CBC, temperature curve, inflammatory markers
-Follow cultures from arthrocentesis
-Plan for OR today with orthopedics
#Morbid obesity s/p gastric bypass
-BMI 40, affects all aspects of care
-Could consider GLP-1 as outpatient but not sure if contraindicated with his surgical history
#Paroxysmal AF s/p ablation
-No longer on anticoagulants nor rate/rhythm controlling agents
-Heart rate WNL here
#H/O CVA s/p tPA
-Likely related to previous AF history
-No residual deficits
DVT prophylaxis: SCD
Diet: NPO for OR; resume full liquids afterward
CODE STATUS: Full code
Anticipated Discharge: > 48 hours
Subjective/Interval History
-
Date of Service: June 11, 2024
Seen and examined at the bedside. No acute events reported overnight. AFVSS this morning
Hemoglobin came back at 6.3 this morning. Recent trend to 7.0�6.9�6.3
He denies any acute complaints. States he did have a large bowel movement today that was dark in color, but says he did not see any blood (states he was told it 'looked good')
Objective Data
-
Labs:
Laboratory Results
06/11/24
09:06
WBC 14.3 H
Hgb 6.3 L*
Hct 20.9 L*
Plt Count 414 H
Sodium 132 L
Potassium 4.2
Chloride 100
Carbon Dioxide 30
BUN 10
Creatinine 0.5 L
Glucose 90
Calcium 7.1 L
Vital Signs:
Vital Signs
Temp Pulse Resp BP Pulse Ox
98.5 F 82 19 139/84 97
06/11/24 11:35 06/11/24 11:35 06/11/24 11:35 06/11/24 11:35 06/11/24 11:21
I&O
06/10/24 06/11/24 06/12/24
06:59 06:59 06:59
Intake Total 480 / 480 5055 / 5055 916 / 916
Output Total 400 / 400 900 / 900 500 / 500
Balance 80 / 80 4155 / 4155 416 / 416
Review of Systems
-
History Source: Patient
All other systems: Reviewed and negative
Physical Exam
-
General: Well Developed, No Apparent Distress, Comfortable and Morbidly Obese
HEENT: Normocephalic, Atraumatic, Moist Mucous Membranes and Anicteric
Respiratory: Clear to Auscultation and Non Labored Respirations; Negative Accessory Resp Muscle Use
Cardiac: Regular Rhythm and S1/S2; Negative Murmur, Rub or Gallop
GI: Soft, Nontender, Nondistended and Normal Bowel Sounds
Musculoskeletal: No Clubbing, No Cyanosis, No Edema and Other (Swollen right knee with pain to palpation)
Skin: Warm and Dry; Negative Rash
Neuro: AO x 3 and Nonfocal/Grossly Intact
Psych: Calm
Data Reviewed
-
Labs: Labs Reviewed by me, Discussed with Physician (Orthopedics x 2) and Discussed with Patient
--- NOTE | 2024-06-11 11:59 | W.PN.GI.CBS2 ---
Today's Communication / Plan
-
1 unit PRBC today
Continue monitor H&H
Continue Protonix drip
Full liquid diet
Assessment / Plan
-
44-year-old male with past medical history of paroxysmal atrial fibrillation status post ablation, CVA status post tPA, Jani-en-Y gastric bypass, gastric ulcers post Jani-en-Y gastric bypass, GI bleed after tPA administration that stopped
spontaneously (patient states they were unsure where this was located), scrotal postoperative hematoma, lower extremity cellulitis and hypertension who presents to the emergency room with episode of bright red blood vomiting followed by 4 episodes
of bright red blood per rectum. Asked to evaluate for the same. In the setting of NSAID use Advil 600 mg daily as well as naproxen 550 mg twice daily. With prior history of gastric ulcer status post Jani-en-Y gastric bypass. Hemoglobin currently
5.8 up from 5.4 status post 2 units packed red blood cells. Patient continues to be n.p.o. at present time. On pantoprazole 40 mg IV twice daily. No further signs of bleeding since prior to arrival. Patient is going to receive 2 more units
packed red blood cells. Will anticipate EGD today after transfusion. Discussed with RN. Discussed with internal medicine. Discussed with patient who is agreeable.
EGD 06/08/24:
The examined esophagus was normal.
Small gastric pouch c/w prior bypass, widely patent anastomosis
One large > 1cm non-bleeding cratered ulcer which was deep with multiple
areas of red spots, vessels was found distal to the gastrojejunal
anastomosis. Area was successfully injected with 5 mL of a 0.1 mg/mL
solution of epinephrine, the ulcer was too deep to safely treat which
alternative therapies.
Impression: - Normal esophagus.
- Non-bleeding deep jejunal ulcer. Injected.
- No specimens collected.
Impression:
Acute GI bleed, secondary to greater than 1 cm nonbleeding cratered ulcer with deep multiple areas of red spots, vessels found distal to gastrojejunal anastomosis
Chronic anemia
Cellulitis/suspected septic arthritis right knee -on antibiotics
Plan:
- Although repeat Hb this am was 6.3 patient denies any GI bleeding yesterday except for bowel movement with dark material this a.m. BUN is normal.
1 unit PRBC ordered by medical team
-Full liquid diet
-Continue monitor H&H
- will Continue Protonix drip for another 24 hours and then 40 mg bid
-If patient rebleeds will likely need CTA/ IR embolization. The ulcer was too deep to safely treat. It was injected with epinephrine during EGD on 06/08/2024
-Will need repeat EGD to document healing in 8 to 12 weeks
-Avoid NSAIDs
Total Time Spent with Patient (in minutes): 35
Subjective
Subjective
Date of Service: June 11, 2024
No BMs yesterday. Had a BM this morning which was dark in color. Denies any abdominal pain/nausea/vomiting. Tolerating liquid diet
Objective
Data Reviewed
Laboratory Data:
Laboratory Results
06/11/24 09:06
Laboratory Results
PT 15.5 Sec (11.4-14.6) H 06/07/24 20:34
INR 1.18 06/07/24 20:34
APTT 30.8 Sec (23.4-35.0) 06/07/24 20:34
Magnesium 2.5 mg/dl (1.6-2.3) H 06/08/24 06:19
Total Bilirubin 0.5 mg/dl (0.2-1.3) 06/07/24 20:34
AST 72 U/L (17-59) H 06/07/24 20:34
ALT 23 U/L (0-50) 06/07/24 20:34
Alkaline Phosphatase 114 U/L (38-126) 06/07/24 20:34
Vital Signs and I&O:
Vital Signs
Temp Pulse Resp BP Pulse Ox
98.6 F 79 19 143/84 97
06/11/24 11:53 06/11/24 11:53 06/11/24 11:53 06/11/24 11:53 06/11/24 11:21
I&O
06/10/24 06/11/24 06/12/24
06:59 06:59 06:59
Intake Total 480 / 480 5055 / 5055 916 / 916
Output Total 400 / 400 900 / 900 500 / 500
Balance 80 / 80 4155 / 4155 416 / 416
Physical Exam
Physical Exam
GI: Soft, Non Distended and Non Tender
--- NOTE | 2024-06-11 13:47 | PTCARENOTE ---
Pt with 2 large gelatinous bloody bowel movements. Dr. Nicholas notified. Unit of blood infusing, pt tolerating well.
--- NOTE | 2024-06-11 14:57 | PTCARENOTE ---
Pt remains NPO for OR. Pt and repeatedly asking to order meals and for drinks. Educated multiple times on importance of adherence to NPO for pt's safety; both verbalize understanding. To stat CT via stretcher.
--- NOTE | 2024-06-11 18:16 | PTCARENOTE ---
Pt with elevated temp of 100.2. For IV vanco and unit of PRBC. Vanco infusing at this time. D/w jennifer Stapleton to administer blood despite elevated temp when blood is complete. Pt and updated on plan of care.
[2024-06-11] MEDS: TYLENOL 650 MG PO (23:31)
--- NOTE | 2024-06-11 23:46 | PTCARENOTE ---
Assumed care of patient from previous RN. unit of PRBC running. Temperature taken at 2300 ad was 101.0. [employer] notified and medication given, see MAR but okay to keep infusing blood per [employer]. Patient does have an occasional cough but on RA sating at
97. Patient is NPO for possible procedures in AM. Patient and girlfriend educated on importance of NPO. Care ongoing and call garcia in reach.
[2024-06-12] VITALS (18 sets, daily range): BP systolic 119–154; BP diastolic 66–107
[2024-06-12] MEDS: DILAUDID 0.5 MG IV ×6 (03:05→23:42)
[2024-06-12] MEDS: VANCOCIN 540 MG IV ×2 (05:13→18:31)
[2024-06-12 06:04] LABS: % Basophils 0.7 % (0-2); % Eosinophils 1.1 % (0-6); % Lymphocytes 11.7 % (20.5-51.1); % Monocytes 5.6 % (1.7-9.3); % Neutrophils 76.9 % (42.2-75.2); Absolute Basophils 0.1 10^3/uL (0-0.2); Absolute Eosinophils 0.2 10^3/uL (0-0.7); Absolute Immature Granulocytes 0.5 10^3/uL (0-0.05); Absolute Lymphocytes 1.6 10^3/uL (1.2-3.4); Absolute Monocytes 0.8 10^3/uL (0.1-0.6); Absolute Neutrophils 10.3 10^3/uL (1.4-6.5); Hematocrit 24.3 % (39.0-52.0); Hemoglobin 7.4 g/dL (13.0-18.0); Mean Corp Hgb Conc. 30.5 g/dL (33.0-37.0); Mean Corpuscular Hgb 24.8 pg (27.0-31.0); Mean Corpuscular Volume 81.5 fL (80.0-94.0); Nucleated Red Blood Cells % 0.2 % (-); Platelet Count 310 10^3/uL (130-400); Red Blood Cell Count 2.98 10^6/uL (4.70-6.10); Red Cell Dist. Width 21.8 % (11.5-14.5); White Blood Cell Count 13.4 10^3/uL (4.8-10.8)
[2024-06-12 06:08] LABS: Blood Urea Nitrogen 10 mg/dl (9-20); Calcium 7.3 mg/dl (8.4-10.2); Carbon Dioxide 29 mmol/L (22-30); Chloride 103 mmol/L (98-107); Estimated Creatinine Clearance > 125 ml/min; Glucose 88 mg/dl (70-99); Potassium 4.2 mmol/L (3.5-5.1); Sodium 134 mmol/L (135-145); eGFR > 60.00
[2024-06-12] MEDS: PROTONIX 100 IV ×2 (06:26→16:03)
[2024-06-12 07:42] LABS: Erythrocyte Sed Rate 66 mm/hour (0-20)
--- NOTE | 2024-06-12 08:42 | PHA.VAN.FU ---
Vancomycin Assessment / Plan
- Assessment
Renal Function: Stable
WBC's are: Stable
- Dosing Plan
Continue: Vanc 2000mg Q12H (adjusted 06/10)
- Monitoring Plan
Peak Level: 06/12 22:00
Trough Level: 06/13 05:30
Monitoring Comments: levels to be drawn after 5th dose of new regimen
- Follow Up
Pharmacy will continue to follow.
Vancomycin Follow UP
- -
Patient Age: 44
Patient Sex: Male
Vancomycin Day #: 5
Indication: Skin And Soft Tissue
Requesting Provider: Sam
Pertinent Antimicrobial Allergies:
NKDA
Height / Weight:
Height 5 ft 6 in
Actual Weight 113 kg
Adjusted BW in k.5
Pertinent Past Medical History: BMI ~40
- Vital Signs / Lab Results
Temp Pulse Resp BP Pulse Ox
97.8 F 79 20 127/92 99
06/12/24 04:34 06/12/24 06:00 06/12/24 06:00 06/12/24 06:00 06/12/24 04:00
Lab Results - Hematology
06/10/24 06/10/24 06/11/24
06 18:02 09:06
WBC 13.8 H 14.7 H 14.3 H
06/11/24 06/12/24
20:00 05:44
WBC Cancelled 13.4 H
Lab Results - Chemistry
06/10/24 06/11/24 06/12/24
06: 09:06 05:44
BUN 9 10 10
Creatinine 0.6 L 0.5 L 0.6 L
Estimated Creat Clear > 125 > 125 > 125
Microbiology Results
06/10/24 15:23 Wound Culture - Preliminary
Knee - Right Group G Streptococcus
Gram Stain - Preliminary
06/07/24 21:47 Wound Culture - Preliminary
Leg - Right Staph aureus MRSA
Escherichia coli
Group G Streptococcus
Gram Stain - Preliminary
06/08/24 06:20 MRSA Screen - Final
Nose Staph aureus MRSA
Therapeutic Drug Monitoring
Vancomycin Peak 13.6 ug/ml (18-26) L 06/09/24 21:35
Vancomycin Trough 6.8 ug/ml (5-20) 06/10/24 06:29
--- NOTE | 2024-06-12 08:58 | W.PN.HOSP.TC ---
Today's Communication/Plan
-
NPO. Going to endoscopy suite today.
Assessment / Plan
Assessment / Plan
44 man with knee pain and GI bleeding.
1. Acute GI bleed of gastrojejunal anastomoses - continues
Acute blood loss anemia
H/O gastric bypass
-S/p EGD that showed deep cratered ulcer at GJ anastomosis, s/p endoscopic epinephrine injection
Going back to endoscopy suite today (with surgery service to also visualize ulcer)
-Status post 6 units of PRBC; hemoglobin today 7.4; currently on PPI drip
-Had been transitioned from clear liquids to full liquid diet by GI team. now NPO again
-GI following
-Has remained hemodynamically stable
-Continue to trend CBC every 12 hours, hemoglobin goal >7
-Continue to advance diet as GI seems appropriate, NPO for now, re-eval after today's procedure
-Continue IV PPI drip, absolute avoidance of NSAIDs
2. Suspected septic arthritis of right knee - continues
Right knee effusion and pain
Purulent cellulitis of the RLE
-Was started on IV vancomycin for presumed cellulitis of the right lower extremity
-Recently had right knee injury; has had worsening pain here; elevated inflammatory markers
-Currently with leukocytosis; MRI showed effusion of the right knee
-S/p arthrocentesis, culture sent though not enough of a sample for cell count
-Continue with IV vancomycin
-Trend CBC, temperature curve, inflammatory markers
-Follow cultures from arthrocentesis
-Plan for OR with orthopedics when stable from GI bleed
3. Morbid obesity s/p gastric bypass -BMI 40, affects all aspects of care
-Could consider GLP-1 as outpatient but not sure if contraindicated with his surgical history
-Could also consider ketogenic diet and outpatient commercial interior designer
4. Paroxysmal AF s/p ablation -No longer on anticoagulants nor rate/rhythm controlling agents
-Heart rate WNL here
-No active plan needed at this time
5. H/O CVA s/p tPA
-Likely related to previous AF history
-No residual deficits
DVT prophylaxis: SCD
Diet: NPO for OR; resume full liquids afterward
CODE STATUS: Full code
Anticipated Discharge: > 48 hours
Subjective/Interval History
-
Date of Service: June 12, 2024
Continues to have knee pain and dark stools
Objective Data
-
Labs:
Laboratory Results
06/11/24 06/12/24
20:00 05:44
WBC Cancelled 13.4 H
Hgb Cancelled 7.4 L
Hct Cancelled 24.3 L
Plt Count Cancelled 310 D
Sodium 134 L
Potassium 4.2
Chloride 103
Carbon Dioxide 29
BUN 10
Creatinine 0.6 L
Glucose 88
Calcium 7.3 L
Vital Signs:
Vital Signs
Temp Pulse Resp BP Pulse Ox
97.8 F 79 20 127/92 99
06/12/24 04:34 06/12/24 06:00 06/12/24 06:00 06/12/24 06:00 06/12/24 04:00
I&O
06/11/24 06/12/24 06/13/24
06:59 06:59 06:59
Intake Total 5055 / 5055 1536 / 1536
Output Total 900 / 900 600 / 600
Balance 4155 / 4155 936 / 936
Review of Systems
-
History Source: Patient
All other systems: Reviewed and negative
Constitutional: Reports Night Sweats
Abdomen/GI: Reports Black Stools
Musculoskeletal: Reports Joint Pain and Joint Swelling
Physical Exam
-
General: Well Developed, Well Nourished, Appears in Distress and Morbidly Obese
Respiratory: Clear to Auscultation
Cardiac: Regular Rhythm and S1/S2
GI: Soft, Nontender and Nondistended
Musculoskeletal: No Clubbing, No Cyanosis, Edema, Right Lower Extrem and Edema, Left Lower Extrem
Skin: Warm and Dry
Neuro: Awake, Alert, Oriented and AO x 3
Psych: Calm
Data Reviewed
-
Labs: Labs Reviewed by me
--- NOTE | 2024-06-12 09:14 | W.PN.GI.CBS2 ---
Today's Communication / Plan
-
EGD today
Assessment / Plan
-
44-year-old male with past medical history of paroxysmal atrial fibrillation status post ablation, CVA status post tPA, Jani-en-Y gastric bypass, gastric ulcers post Jani-en-Y gastric bypass, GI bleed after tPA administration that stopped
spontaneously (patient states they were unsure where this was located), scrotal postoperative hematoma, lower extremity cellulitis and hypertension who presents to the emergency room with episode of bright red blood vomiting followed by 4 episodes
of bright red blood per rectum. Asked to evaluate for the same. In the setting of NSAID use Advil 600 mg daily as well as naproxen 550 mg twice daily. With prior history of gastric ulcer status post Jani-en-Y gastric bypass. Hemoglobin currently
5.8 up from 5.4 status post 2 units packed red blood cells. Patient continues to be n.p.o. at present time. On pantoprazole 40 mg IV twice daily. No further signs of bleeding since prior to arrival. Patient is going to receive 2 more units
packed red blood cells. Will anticipate EGD today after transfusion. Discussed with RN. Discussed with internal medicine. Discussed with patient who is agreeable. 06/12/24: Patient s/p total 7 units PRBC during admission, had 2 large episodes
of maroon blood per rectum with clots on 06/11/24. Negative CTA for active GI bleeding on 06/11/24.
EGD 06/08/24:
The examined esophagus was normal.
Small gastric pouch c/w prior bypass, widely patent anastomosis
One large > 1cm non-bleeding cratered ulcer which was deep with multiple
areas of red spots, vessels was found distal to the gastrojejunal
anastomosis. Area was successfully injected with 5 mL of a 0.1 mg/mL
solution of epinephrine, the ulcer was too deep to safely treat which
alternative therapies.
Impression: - Normal esophagus.
- Non-bleeding deep jejunal ulcer. Injected.
- No specimens collected.
Impression:
Acute GI bleed, secondary to greater than 1 cm nonbleeding cratered ulcer with deep multiple areas of red spots, vessels found distal to gastrojejunal anastomosis
Chronic anemia
Cellulitis/suspected septic arthritis right knee -on antibiotics
Plan:
- Repeat EGD planned for 06/12/24
-Continue monitor H&H
- will Continue Protonix drip
-CTA on 06/11/24 was negative for active GI bleeding.
-Area of ulcer was injected with epinephrine during EGD on 06/08/2024.
-Will need repeat EGD to document healing in 8 to 12 weeks
-Avoid NSAIDs.
-Further recommendations after EGD today.
Subjective
Subjective
Date of Service: June 12, 2024
Patient with 2 large episodes of maroon stool with clots yesterday requiring transfusion of 2 units PRBC. CTA of Abd/Pelvis without active signs of bleeding identified. Patient without any abdominal pain. However, has never had any abdominal pain.
Vital signs stable. Hgb 7.4 this am. Discussed with patient, IM and Ortho. Will remain NPO and will repeat EGD today.
Objective
Data Reviewed
Laboratory Data:
Laboratory Results
06/12/24 05:44
Laboratory Results
PT 15.5 Sec (11.4-14.6) H 06/07/24 20:34
INR 1.18 06/07/24 20:34
APTT 30.8 Sec (23.4-35.0) 06/07/24 20:34
Magnesium 2.5 mg/dl (1.6-2.3) H 06/08/24 06:19
Total Bilirubin 0.5 mg/dl (0.2-1.3) 06/07/24 20:34
AST 72 U/L (17-59) H 06/07/24 20:34
ALT 23 U/L (0-50) 06/07/24 20:34
Alkaline Phosphatase 114 U/L (38-126) 06/07/24 20:34
Vital Signs and I&O:
Vital Signs
Temp Pulse Resp BP Pulse Ox
97.8 F 79 20 127/92 96
06/12/24 04:34 06/12/24 06:00 06/12/24 06:00 06/12/24 06:00 06/12/24 08:58
I&O
06/11/24 06/12/24 06/13/24
06:59 06:59 06:59
Intake Total 5055 / 5055 1536 / 1536
Output Total 900 / 900 600 / 600
Balance 4155 / 4155 936 / 936
Physical Exam
Physical Exam
HEENT: Anicteric
Cardiology: Normal Sinus Rhythm
Pulmonary: Clear (anterior, + cough)
GI: Soft, Non Distended, Non Tender and Normal Bowel Sounds
Extremities: Edema (trace B/L LE edema, c/o right knee pain)
Neuro: Non Focal
--- NOTE | 2024-06-12 11:14 | W.PN.UPDATE ---
Update Note
Progress Note Update
Due to ongoing bleeding IR procedure to the RLE has been put on hold. Plan for the Endoscopy suite today. Dr. Duran discussed with the IR suite. He had also been tentatively placed to the OR schedule for an arthroscopic I&D, which will also be
canceled for today. He may have a diet. Once IR is comfortable proceeding with the interventional procedure (aspiration and drain of the lateral thigh accumulation noted on MRI) on the RLE as discussed with Dr. Nicholas over the weekend, we will see
how he responds. Ortho to continue following
--- NOTE | 2024-06-12 12:08 | WOUNDNOTE ---
RIGHT POSTERIOR LEG WOUND
--- NOTE | 2024-06-12 12:08 | WOUNDNOTE ---
LOW BACK WOUND
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
--- NOTE | 2024-06-12 12:33 | PTCARENOTE ---
Pt for GI lab via [email or web address].
--- NOTE | 2024-06-12 13:43 | W.PN.UPDATE ---
Update Note
Progress Note Update
D/w EndoClot rep recommend waiting 8 hours before liquids
changed diet to NPO
--- NOTE | 2024-06-12 14:10 | CM ---
Addendum entered by Karla Huber 06/12/24 16:27:
Call from [employer]
Pt with limited insurance policy and pt without PCP
She is following for MA darrel
She faxed forms to CM Department- requesting assistance with hospitalist to complete due to lack of PCP
CM to follow up with hospitalist regarding forms
Original Note:
CM reviewed chart and plan for endoscopy today
Plan for I&D of R knee on hold
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
Cm will continue to follow for dc planning
Discharge Disposition- TBD
--- NOTE | 2024-06-12 16:50 | PTCARENOTE ---
Pt resting comfortably post GI lab. Medicated with PRN Dilaudid, see MAR. Educated on strict NPO order, pt and verbalize understanding. Ringing appropriately, call garcia within reach.
--- NOTE | 2024-06-12 20:32 | W.PN.UPDATE ---
Update Note
Progress Note Update
Patient's right knee fluid has grown group B strep. NPO pMN. Plan for OR for arthroscopic I&D and open evacuation of distal lateral thigh collection tomorrow afternoon. New consent to be obtained in the AM for Dr. Escoto to attend the procedure.
Roger made aware. Will follow
[2024-06-12 23:03] LABS: Hematocrit 24.5 % (39.0-52.0); Hemoglobin 7.4 g/dL (13.0-18.0); Mean Corp Hgb Conc. 30.2 g/dL (33.0-37.0); Mean Corpuscular Hgb 25.3 pg (27.0-31.0); Mean Corpuscular Volume 83.9 fL (80.0-94.0); Platelet Count 307 10^3/uL (130-400); Red Blood Cell Count 2.92 10^6/uL (4.70-6.10); Red Cell Dist. Width 22.2 % (11.5-14.5); White Blood Cell Count 11.5 10^3/uL (4.8-10.8)
[2024-06-12 23:13] LABS: Vancomycin Peak 21.8 ug/ml (18-26)
[2024-06-13] VITALS (15 sets, daily range): BP systolic 122–159; BP diastolic 73–116
--- NOTE | 2024-06-13 00:08 | PTCARENOTE ---
Assumed care of patient from previous RN. Patient Aox3 and NSR on monitor. Patient scheduled for surgery tomorrow and educated on strict NPO order. PRN pain medication given for right knee pain, see AUG. Assessment and VS as documented. Call garcia in
reach.
[2024-06-13] MEDS: DILAUDID 0.5 MG IV ×4 (04:48→20:35)
[2024-06-13 06:15] LABS: Blood Urea Nitrogen 11 mg/dl (9-20); Calcium 7.5 mg/dl (8.4-10.2); Carbon Dioxide 25 mmol/L (22-30); Chloride 104 mmol/L (98-107); Estimated Creatinine Clearance > 125 ml/min; Glucose 86 mg/dl (70-99); Potassium 4.2 mmol/L (3.5-5.1); Sodium 135 mmol/L (135-145); eGFR > 60.00
[2024-06-13 06:29] LABS: Vancomycin Trough 12.2 ug/ml (5-20)
[2024-06-13] MEDS: VANCOCIN 540 MG IV ×2 (06:31→18:08)
[2024-06-13 06:33] LABS: Hematocrit 24.9 % (39.0-52.0); Hemoglobin 7.4 g/dL (13.0-18.0); Mean Corp Hgb Conc. 29.7 g/dL (33.0-37.0); Mean Corpuscular Volume 84.1 fL (80.0-94.0); Mean Platelet Volume 9.6 fL (7.4-10.4); Platelet Count 320 10^3/uL (130-400); Red Blood Cell Count 2.96 10^6/uL (4.70-6.10); Red Cell Dist. Width 22.5 % (11.5-14.5); White Blood Cell Count 11.8 10^3/uL (4.8-10.8)
--- NOTE | 2024-06-13 06:36 | W.PN.HOSP.TC ---
Today's Communication/Plan
-
NPO pending knee surgery for septic knee.
Assessment / Plan
Assessment / Plan
44 man with knee pain and GI bleeding.
1. Acute GI bleed of gastrojejunal anastomoses - resolving, s/p second EGD procedure
Acute blood loss anemia
H/O gastric bypass
-S/p EGD that showed deep cratered ulcer at GJ anastomosis, s/p endoscopic epinephrine injection
Went back to endoscopy suite on 06/12/24
Ulcer sprayed with clotting material
-Status post 6 units of PRBC; hemoglobin stable at 7.4 x 2; currently on PPI drip
-Had been transitioned from clear liquids to full liquid diet by GI team. now NPO again for knee surgery
-GI following
-Has remained hemodynamically stable
-Continue to trend CBC every 24 hours, if H/H same or better than yesterday. hemoglobin goal >7
If H/H < yesterday, then H/H q6h.
-Continue to advance diet as GI seems appropriate, after the knee procedure
-Continue IV PPI drip, absolute avoidance of NSAIDs and steroids now and after discharge
-Oral PPi at discharge
2. Septic arthritis of right knee - continues. Knee aspirate growing group B strep
Right knee with effusion and severe pain
Complicated by Purulent cellulitis of the RLE
-Was started on IV vancomycin for presumed cellulitis of the right lower extremity
-Recently had right knee injury; has had worsening pain here; elevated inflammatory markers
-Currently with leukocytosis; MRI showed effusion of the right knee
-S/p arthrocentesis, culture sent and growing GBS.
-Continue with IV vancomycin
-Trend CBC, temperature curve,
-Follow cultures from arthrocentesis
-Plan for OR with orthopedics today
3. Morbid obesity s/p gastric bypass -BMI 40, affects all aspects of care
-Consider GLP-1 as outpatient. Recent studies suggest this is appropriate care.
-Could also consider ketogenic diet and outpatient uniform maker
4. Paroxysmal AF s/p ablation -No longer on anticoagulants nor rate/rhythm controlling agents
-Heart rate WNL here
-No active plan needed at this time
5. H/O CVA s/p tPA
-Likely related to previous AF history
-No residual deficits
DVT prophylaxis: SCD
Diet: NPO for OR; resume full liquids afterward, then advance as tolerated and guided by GI
CODE STATUS: Full code
Anticipated Discharge: > 48 hours
Subjective/Interval History
-
Date of Service: June 13, 2024
Doing well this morning. NPO pending knee surgery later today.
Objective Data
-
Labs:
Laboratory Results
06/12/24 06/13/24
22:47 05:26
WBC 11.5 H 11.8 H
Hgb 7.4 L 7.4 L
Hct 24.5 L 24.9 L
Plt Count 307 320
Sodium 135
Potassium 4.2
Chloride 104
Carbon Dioxide 25
BUN 11
Creatinine 0.6 L
Glucose 86
Calcium 7.5 L
Vital Signs:
Vital Signs
Temp Pulse Resp BP Pulse Ox
99.7 F 91 22 159/111 99
06/13/24 04:01 06/13/24 04:00 06/13/24 04:00 06/13/24 04:00 06/13/24 04:00
I&O
06/11/24 06/12/24 06/13/24
06:59 06:59 06:59
Intake Total 5055 / 5055 1536 / 1536
Output Total 900 / 900 600 / 600
Balance 4155 / 4155 936 / 936
Review of Systems
-
History Source: Patient
All other systems: Reviewed and negative
Abdomen/GI: Reports Other (hunger)
Musculoskeletal: Reports Joint Pain
Physical Exam
-
General: Well Developed, Well Nourished, No Apparent Distress, Comfortable and Morbidly Obese
HEENT: Normocephalic, Atraumatic, Nose Appears Normal and Ears Appear Normal
Respiratory: Clear to Auscultation
Cardiac: Regular Rhythm and S1/S2
GI: Soft, Nontender and Nondistended
Musculoskeletal: No Clubbing, No Cyanosis, Edema, Right Lower Extrem and Edema, Left Lower Extrem
Skin: Warm and Dry
Neuro: Awake, Alert, Oriented and AO x 3
Psych: Calm
Data Reviewed
-
Labs: Labs Reviewed by me
--- NOTE | 2024-06-13 08:06 | PHA.VAN.FU ---
Vancomycin Assessment / Plan
- Assessment
Renal Function: Stable
WBC's are: Stable
In the past 24 hrs, patient has been: Afebrile
- Assessment - Therapeutic Drug Monitoring
Extrapolated Cmax (mcg/mL): 26.6
Peak level was drawn: Appropriately (drawn ~2.3H after end of previous infusion)
Extrapolated Cmin (mcg/mL): 11.1
Trough Drawn: Appropriately
Levels were drawn: At steady state (levels drawn after 5th dose of new regimen)
Calculated AUC (mcg*h/mL): 430
Calculated ke: 0.0873
Calculated half life (H): 7.9
Calculated Vd (L): 106 (~0.9 L/kg)
Calculated Vanc CL (ml/min): 155
- Dosing Plan
Continue: Vanc 2000mg Q12H
- Monitoring Plan
Level(s) appropriate: Recheck trough at minimum of weekly intervals, Repeat sooner for changes in renal function or clinical status
Next Level Due (Date): ~06/20, may consider sooner given high mg dosing
- Follow Up
Pharmacy will continue to follow.
Vancomycin Follow UP
- -
Patient Age: 44
Patient Sex: Male
Vancomycin Day #: 6
Indication: Skin And Soft Tissue
Requesting Provider: Sam
Pertinent Antimicrobial Allergies:
NKDA
Height / Weight:
Height 5 ft 6 in
Actual Weight 113 kg
Adjusted BW in k.5
Pertinent Past Medical History: BMI ~40
- Vital Signs / Lab Results
Temp Pulse Resp BP Pulse Ox
99.7 F 91 22 159/111 99
06/13/24 04:01 06/13/24 04:00 06/13/24 04:00 06/13/24 04:00 06/13/24 04:00
Lab Results - Hematology
06/10/24 06/11/24 06/11/24
18:02 09:06 20:00
WBC 14.7 H 14.3 H Cancelled
06/12/24 06/12/24 06/13/24
05:44 22:47 05:26
WBC 13.4 H 11.5 H 11.8 H
Lab Results - Chemistry
06/11/24 06/12/24 06/13/24
09:06 05:44 05:26
BUN 10 10 11
Creatinine 0.5 L 0.6 L 0.6 L
Estimated Creat Clear > 125 > 125 > 125
Microbiology Results
06/10/24 15:23 Wound Culture - Final
Knee - Right Group G Streptococcus
Gram Stain - Final
06/07/24 21:47 Wound Culture - Final
Leg - Right Staph aureus MRSA
Escherichia coli - ESBL
Group G Streptococcus
Gram Stain - Final
Therapeutic Drug Monitoring
Vancomycin Peak 21.8 ug/ml (18-26) 06/12/24 22:47
Vancomycin Trough 12.2 ug/ml (5-20) 06/13/24 05:26
--- NOTE | 2024-06-13 08:40 | W.PN.GI.CBS2 ---
Today's Communication / Plan
-
No signs of recurrent GI bleeding since recent EGD on 06/12 with hemospray (via Endoclot). H/h remains stable and without any melena over the past 48 hrs. NPO for upcoming Orthopedic surgery. No longer on IV PPI gtt, will start IV PPI 40 mg BiD this
AM and advance up to [facility] once able to have p.o intake. See rest of care as outlined below. GI team will continue to follow.
Assessment / Plan
-
#Acute UGIB 2/ #Marginal Ulcer (on Gastric-Side of Anastomosis)
#Acute on Chronic Anemia
#Acute Blood Loss Anemia
#Septic Arthritis on R Knee
44-year-old male with past medical history of paroxysmal atrial fibrillation status post ablation, CVA status post tPA, Jani-en-Y gastric bypass, gastric ulcers post Jani-en-Y gastric bypass, GI bleed after tPA administration that stopped
spontaneously (patient states they were unsure where this was located), scrotal postoperative hematoma, lower extremity cellulitis and hypertension who presents to the emergency room with episode of bright red blood vomiting followed by 4 episodes
of bright red blood per rectum. Asked to evaluate for the same. In the setting of NSAID use Advil 600 mg daily as well as naproxen 550 mg twice daily. With prior history of gastric ulcer status post Jani-en-Y gastric bypass. Hemoglobin currently
5.8 up from 5.4 status post 2 units packed red blood cells. Patient continues to be n.p.o. at present time. On pantoprazole 40 mg IV twice daily. No further signs of bleeding since prior to arrival. Patient is going to receive 2 more units
packed red blood cells. Will anticipate EGD today after transfusion. Discussed with RN. Discussed with internal medicine. Discussed with patient who is agreeable. 06/12/24: Patient s/p total 7 units PRBC during admission, had 2 large episodes
of maroon blood per rectum with clots on 06/11/24. Negative CTA for active GI bleeding on 06/11/24.
EGD 06/08/24:
The examined esophagus was normal.
Small gastric pouch c/w prior bypass, widely patent anastomosis
One large > 1cm non-bleeding cratered ulcer which was deep with multiple
areas of red spots, vessels was found distal to the gastrojejunal
anastomosis. Area was successfully injected with 5 mL of a 0.1 mg/mL
solution of epinephrine, the ulcer was too deep to safely treat which
alternative therapies.
Impression: - Normal esophagus.
- Non-bleeding deep jejunal ulcer. Injected.
- No specimens collected.
S/p EGD 06/12: with non-bleeding cratered gastric ulcer at the anastomosis (marginal ulcer) with black and red spot s/p hemospray with Endoclot without any active bleeding or signs of recent bleeding, otherwise grossly normal esophagus and remaining
jejunum
Hgb remains stable 7.4 -> 7.4 without signs of recurrent GI Bleeding since repeat EGD on 06/12.
Recommendations:
- NPO for planned upcoming orthopedic surgery later today
- From GI standpoint, may be started on CLD once able to have p.o intake after surgery
- Would defer from advancing and continue CLD for 24 hrs given recent hemospray with Endoclot during EGD on 06/12
- Trend Hgb with serial CBC, transfuse for goal Hgb > 8.0
- Completed IV PPI gtt, would continue IV PPI 40 mg BiD while inpatient
- Strict avoidance of all NSAIDs
- If concern for re-bleeding at anastomosis, would consider surgical consultation for potential revision of GJ anastomosis
- Rest of care as per primary team
Discussed with primary internal medicine team. GI team will continue to follow while inpatient.
Subjective
Subjective
Date of Service: June 13, 2024
- S/p EGD 06/12: with non-bleeding cratered gastric ulcer at the anastomosis (marginal ulcer) with black and red spot s/p hemospray with Endoclot without any active bleeding or signs of recent bleeding, otherwise grossly normal esophagus and
remaining jejunum
- Hgb remains stable 7.4 -> 7.4 this AM
- Found to have R Knee synovial fluid growing GBS, concern for septic knee with plans for arthroscopic I&D with open evacuation with Ortho this AM
Feeling well, resting comfortably this AM and denies any abdominal pain/discomfort, nausea or vomiting. Denies any recent melena or bloody stools in over 48 hours. NPO for upcoming planned orthopedic surgery today.
Objective
Data Reviewed
Laboratory Data:
Laboratory Results
06/13/24 05:26
06/13/24 05:26
Laboratory Results
PT 15.5 Sec (11.4-14.6) H 06/07/24 20:34
INR 1.18 06/07/24 20:34
APTT 30.8 Sec (23.4-35.0) 06/07/24 20:34
Magnesium 2.5 mg/dl (1.6-2.3) H 06/08/24 06:19
Total Bilirubin 0.5 mg/dl (0.2-1.3) 06/07/24 20:34
AST 72 U/L (17-59) H 06/07/24 20:34
ALT 23 U/L (0-50) 06/07/24 20:34
Alkaline Phosphatase 114 U/L (38-126) 06/07/24 20:34
Vital Signs and I&O:
Vital Signs
Temp Pulse Resp BP Pulse Ox
99.7 F 91 22 159/111 99
06/13/24 04:01 06/13/24 04:00 06/13/24 04:00 06/13/24 04:00 06/13/24 04:00
I&O
06/12/24 06/13/24 06/14/24
06:59 06:59 06:59
Intake Total 1536 / 1536
Output Total 600 / 600
Balance 936 / 936
Physical Exam
Physical Exam
HEENT: Anicteric and Moist mucous membranes
Cardiology: Normal Sinus Rhythm
Pulmonary: Other (Normal WOB on room air)
GI: Soft, Non Distended and Non Tender
Extremities: No Edema
Neuro: Non Focal
[2024-06-13] MEDS: PROTONIX IV 40 MG IV ×2 (09:05→20:34)
[2024-06-13] MEDS: NSS (PRESERVATIVE FREE) 10 ML IV ×2 (09:06→20:35)
--- NOTE | 2024-06-13 11:44 | W.PN.UPDATE ---
Documented by User: Gregg Jordan PA-C 06/13/24 11:46
Update Note
Progress Note Update
Patient seen and examined by Orthopedic surgery this morning. Delayed entry due to Meditch difficulties. Patient's right knee fluid has grown group B strep. Consented for RIGHT arthroscopic I&D and open evacuation of distal lateral thigh
collection today under the direction of Dr. Cody. Edd JOHNSON. Patient to remain NPO. Orthopedic surgery will continue to follow.

Documented by User: Jaxon Amanda PA-C 06/13/24 13:52
Update Note
Progress Note Update
Patient seen and examined by Orthopedic surgery this morning. Delayed entry due to Meditch difficulties. Patient's right knee fluid has grown group B strep. Consented for RIGHT arthroscopic I&D and open evacuation of distal thigh collection today
under the direction of Dr. Cody. Edd JOHNSON. Patient to remain NPO. Orthopedic surgery will continue to follow.
--- NOTE | 2024-06-13 13:35 | PTCARENOTE ---
Addendum entered by Isis Huynh RN 06/13/24 14:10:
Cannot verify accuracy of vital signs prior to 0700.
Original Note:
Assumed care of patient at beginning of this shift from previous RN. Patient medicated x2 so far for c/o R knee pain; patient states relief after each dose. Patient NPO for OR; CHG wipes completed and linens changed. Patient only had a smear of bm
noted on the covidian pad. See worklist for full assessment.
--- NOTE | 2024-06-13 15:08 | PTCARENOTE ---
Patient to OR in bed with chart by transport; report given prior.
--- NOTE | 2024-06-13 18:13 | PTCARENOTE ---
Patient returned from PACU; Ox3, awake and awaiting dinner.
[2024-06-13] MEDS: TYLENOL 650 MG PO (20:35)
[2024-06-14] VITALS (13 sets, daily range): BP systolic 119–148; BP diastolic 67–92; PULSE 102; O2SAT 92
[2024-06-14] MEDS: DILAUDID 0.5 MG IV ×6 (01:05→20:50)
--- NOTE | 2024-06-14 02:18 | PTCARENOTE ---
Assumed care for patient overnight, received report from aster RN. Pt AAOx3. NSR on tele. Pt on 2L NC 95%, with periods of apnea while sleeping. Pt was bathed and oral care done. Pt encouraged to frequently reposition himself and move around in
the bed. Pt has original OR dressing on from surgery of the R knee. Pt complaining of 8/10 pain, administered PRN tylenol first and an ice pack the pain persisted, administered PRN Dilaudid as patient stated his pain increased to 9/10. Pt appears to
be resting comfortably in bed, call garcia is within reach.
[2024-06-14] MEDS: VANCOCIN 540 MG IV ×2 (06:00→17:22)
[2024-06-14 06:57] LABS: Hematocrit 29.7 % (39.0-52.0); Hemoglobin 8.8 g/dL (13.0-18.0); Mean Corp Hgb Conc. 29.6 g/dL (33.0-37.0); Mean Corpuscular Hgb 24.9 pg (27.0-31.0); Mean Corpuscular Volume 84.1 fL (80.0-94.0); Mean Platelet Volume 9.5 fL (7.4-10.4); Platelet Count 331 10^3/uL (130-400); Red Blood Cell Count 3.53 10^6/uL (4.70-6.10); Red Cell Dist. Width 22.1 % (11.5-14.5); White Blood Cell Count 12.1 10^3/uL (4.8-10.8)
[2024-06-14 07:09] LABS: ALT (SGPT) 21 U/L (0-50); AST (SGOT) 24 U/L (17-59); Albumin 2.2 g/dl (3.5-5.0); Alkaline Phosphatase 53 U/L (38-126); Blood Urea Nitrogen 13 mg/dl (9-20); Calcium 7.5 mg/dl (8.4-10.2); Carbon Dioxide 27 mmol/L (22-30); Chloride 103 mmol/L (98-107); Estimated Creatinine Clearance > 125 ml/min; Glucose 127 mg/dl (70-99); Sodium 134 mmol/L (135-145); Total Bilirubin 0.4 mg/dl (0.2-1.3); Total Protein 5.7 g/dl (6.3-8.2); eGFR > 60.00
--- NOTE | 2024-06-14 07:43 | W.PN.ORTHO ---
Today's Communication / Plan
-
44-year-old male POD #1 right knee arthroscopic I&D and open evacuation of distal medial thigh collection.
- WBAT RLE on walker if needed.
- Dressings C/D/I. Medial thigh packing to be removed tomorrow.
- OR cultures pending. IV Abx per primary team. Currently on Vancomycin. Right knee fluid culture from 06/10/2024 (+) Group G Streptococcus.
- PT/OT as tolerated if able.
- Hemoglobin this AM 8.8. Continue to monitor.
- Ice and Elevation. Pain control per primary team. DVT ppx per primary team.
- Orthopedic surgery will continue to follow.
Assessment
.
Distal Motor Intact: Yes
Dressing:
Dressing, clean, dry, and intact.
Fredy wrap to right knee.
Able to plantarflex and dorsiflex right ankle.
Assessment:
POD #1 Right Knee Arthroscopic I&D and Open Evacuation of Distal Medial Thigh Collection
Plan
.
Surgery / Date: 06/13/[address] Escoto
DVT Prophylaxis: Other (Per Primary Team)
Activity:
Out of bed.
PT/OT.
WBAT.
Discharge Information:
Appreciate CM.
Subjective
.
.:
Patient resting comfortably in bed this morning. Denies any new complaints or concerns. Reports right knee/distal thigh pain controlled with current pain medication regimen.
Vital Signs and Labs
.
Vital Signs and Labs:
Lab Results
06/14/24 06:30
06/14/24 06:30
Temp Pulse Resp BP Pulse Ox
97.3 F 64 14 147/91 99
06/14/24 04:38 06/14/24 06:00 06/14/24 06:00 06/14/24 06:00 06/14/24 04:00
PT 15.5 Sec (11.4-14.6) H 12/25/24 20:34
INR 1.18 06/07/24 20:34
--- NOTE | 2024-06-14 09:02 | W.PN.HOSP.TC ---
Today's Communication/Plan
-
ID consulted for help with antibiotics. OK to move to private MS room with contact precautions.
Assessment / Plan
Assessment / Plan
44 man with knee pain and GI bleeding.
1. Acute GI bleed of gastrojejunal anastomoses - resolving, s/p second EGD procedure, H/H much improved, now 8.8/29.7.
Acute blood loss anemia
H/O gastric bypass
-S/p EGD that showed deep cratered ulcer at GJ anastomosis, s/p endoscopic epinephrine injection
Went back to endoscopy suite on 06/12/24
Ulcer sprayed with clotting material
H/H better this am
-Status post 6 units of PRBC; hemoglobin stable at 7.4 x 2; currently on PPI BID
-Had been transitioned from clear liquids to full liquid diet by GI team. Diet to be advanced per GI.
-GI following
-Has remained hemodynamically stable
-Continue to trend CBC every 24 hours, if H/H same or better than yesterday. hemoglobin goal >7
If H/H < yesterday, then H/H q6h.
-Continue to advance diet as GI seems appropriate
-Continue PPI, absolute avoidance of NSAIDs and steroids now and after discharge
-Oral PPi at discharge
-OK to go to Med surge today
2. Septic arthritis of right knee/thigh space - s/p ortho procedure. Knee aspirate growing group G strep
Right knee with effusion and severe pain
Complicated by Purulent cellulitis of the RLE
-Was started on IV vancomycin for presumed cellulitis of the right lower extremity
-Recently had right knee injury; has had worsening pain here; elevated inflammatory markers
-Currently with leukocytosis; MRI showed effusion of the right knee
-S/p arthrocentesis, culture sent and growing GGS.
Cultures show: MRSA, ESBL e-coli, Group G Strep
ID consulted for help with antibiotics
-Antibiotics per ID.
-Trend CBC, temperature curve,
-Follow cultures from arthrocentesis
-Ortho following s/p procedure
-PT and recovery plan per ortho
3. Morbid obesity s/p gastric bypass -BMI 40, affects all aspects of care. He had been 600+ Lbs and successfully lost 400Lbs after gastric bypass.
He feels this is his ideal weight, given his history, However, it may be best to be closer to a BMI of 30 than 40.
-He states he knows how to lose weight.
-Outpatient follow up with his PCP
-May benefit at some point from excess skin removal surgery
4. Paroxysmal AF s/p ablation -No longer on anticoagulants nor rate/rhythm controlling agents
-Heart rate WNL here
-No active plan needed at this time
5. H/O CVA s/p tPA
-Likely related to previous AF history
-No residual deficits
6. Low Ca. Corrects to normal calcium (has low albumin)
-artifact of lab measurement.
DVT prophylaxis: SCD
Diet: NPO for OR; resume full liquids afterward, then advance as tolerated and guided by GI
CODE STATUS: Full code
Anticipated Discharge: > 48 hours
Subjective/Interval History
-
Date of Service: June 14, 2024
Knee feels much better after ortho procedure.
Objective Data
-
Labs:
Laboratory Results
06/14/24
06:30
WBC 12.1 H
Hgb 8.8 L
Hct 29.7 L
Plt Count 331
Sodium 134 L
Potassium 5.0
Chloride 103
Carbon Dioxide 27
BUN 13
Creatinine 0.5 L
Glucose 127 H
Calcium 7.5 L
Total Bilirubin 0.4
AST 24
ALT 21
Alkaline Phosphatase 53
Vital Signs:
Vital Signs
Temp Pulse Resp BP Pulse Ox
97.3 F 64 14 147/91 99
06/14/24 04:38 06/14/24 06:00 06/14/24 06:00 06/14/24 06:00 06/14/24 04:00
I&O
06/13/24 06/14/24 06/15/24
06:59 06:59 06:59
Intake Total 50 / 50
Output Total 100 / 100
Balance -50 / -50
Review of Systems
-
History Source: Patient
All other systems: Reviewed and negative
Physical Exam
-
General: Well Developed, Well Nourished, No Apparent Distress, Comfortable and Morbidly Obese (Has history of losing 400 lbs after bariatric surgery. At his current desired weight.)
Respiratory: Clear to Auscultation
Cardiac: Regular Rhythm and S1/S2
GI: Soft, Nontender and Nondistended
Musculoskeletal: No Clubbing and No Cyanosis
Skin: Warm and Dry
Neuro: Awake, Alert, Oriented and AO x 3
Psych: Calm
Data Reviewed
-
Labs: Labs Reviewed by me
[2024-06-14] MEDS: NSS (PRESERVATIVE FREE) 10 ML IV ×2 (09:04→20:50)
[2024-06-14] MEDS: PROTONIX IV 40 MG IV ×2 (09:04→20:49)
--- NOTE | 2024-06-14 09:55 | CON.ID ---
Consultation
-
Date/Time Consultation Requested: June 14, 2024 0934
Date/Time Consultation Performed: June 14, 2024 1000
Requesting Provider: Dr. Daquan Duran
Performing Provider: Dr. Shaista Portillo
Reason for Consultation: Septic knee
Chief Complaint / Past History
Chief Complaint
Bloody bowel movement
History of Present Illness
History obtained from the patient (who was upset about having to repeat his history). He is a 44-year-old male with history of gastric bypass, gastric ulcer post- bypass, history of GI bleed after tPA for CVA who presented to the ER on June 07
due to rectal bleeding. 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 He went to urgent care, received antibiotic and wound care. Over the next 2 months the
calf wound became smaller and healing well. No purulent drainage. 2 weeks ago he stepped on an uneven tile at work and twisted his right leg. He heard his right knee popped. Since then he has had edema and pain over the right thigh and knee.
He reports the muscles were firm. No erythema. Positive warmth. No fevers or chills. He then started taking NSAIDs for the knee pain. On , he developed multiple bloody bowel movements as well as 1 episode of vomiting up blood. He
came to the ER. His hemoglobin dropped to 5.4. CT of the abdomen pelvis showed no bleed. He underwent upper endoscopy with findings of a deep nonbleeding jejunal ulcer which was injected. In the meantime the right calf wound noted to have
surrounding cellulitis in the ED. The calf wound was swabbed for cx (+MRSA, Group G Strep, ESBL-E. coli). He received 1 dose of Zosyn and currently on vancomycin day 5. 06/09 MRI of the right knee: muscular strains of right thigh, mod to large
suprapatellar joint effusion. 06/10 Ortho attempted to aspirate the right knee yielding only 4 cc of bloody fluid, only enough for culture which resulted as group G Streptococcus. 06/13 he was taken to the OR status post drainage of the right
medial thigh abscess and arthroscopic washout of the right knee. Cultures are pending.
Past History
Additional Past Medical History:
Paroxysmal atrial fibrillation status post ablation
CVA s/p tPA
History of GI bleed due to anticoagulation
History of gastric bypass
Allergy History:
No Known Allergies Allergy (Unverified 06/12/24 08:43)
Medications Reviewed: Yes
Current Antibiotics:
Vancomycin d5
Social History
Tobacco: Former Smoker
Alcohol: None
Drug: None
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
Family History
Family History: Not Pertinent
Review of Systems
Review of Systems
General: Negative Fever, Chills or Change in Appetite
HEENT: Negative Stiff Neck or Sinus Problems
Cardiovascular: Negative Chest Pain or Edema
Respiratory: Negative Dyspnea
Gasteroenterology: Negative Nausea or Vomiting
Genital / Urological: Negative Dysuria or Flank Pain
Endocrine: Negative Weakness
Skin / Hair / Nails: Negative Rash
All systems: All other systems were reviewed and were negative
Vital Signs
Temp Pulse Resp BP Pulse Ox
97.8 F 64 14 147/91 99
06/14/24 07:48 06/14/24 06:00 06/14/24 06:00 06/14/24 06:00 06/14/24 04:00
Physical Exam
Physical Exam
Constitutional: No Acute Distress, Comfortable and Obese
Eyes: No Conjunctival Hemorrhage and Sclera Anicteric
Cardiovascular: Regular Rate and S1/S2
Pulmonary: Clear
Gastrointestinal: Soft, Non Tender, Non Distended and Normal Bowel Sounds
Genito-Urinary: Negative CVA Tenderness
Extremities: Edema (RLE)
Musculoskeletal: Other (Right knee dressing intact)
Wound: Other (Right calf wound with granulating tissue without surrounding bright erythema)
Neurological: AO x 3
Lab / Diagnostic Study Results
06/14/24 06:30
06/14/24 06:30
Abs Immat Gran (auto) 0.5 10^3/uL (0-0.05) H 06/12/24 05:44
Absolute Neuts (auto) 10.3 10^3/uL (1.4-6.5) H 06/12/24 05:44
Absolute Lymphs (auto) 1.6 10^3/uL (1.2-3.4) 06/12/24 05:44
Absolute Monos (auto) 0.8 10^3/uL (0.1-0.6) H 06/12/24 05:44
Absolute Basos (auto) 0.1 10^3/uL (0-0.2) 06/12/24 05:44
Immature Gran % 4.0 % (0-0.5) H 06/12/24 05:44
Neutrophils % 76.9 % (42.2-75.2) H 06/12/24 05:44
Lymphocytes % 11.7 % (20.5-51.1) L 06/12/24 05:44
Monocytes % 5.6 % (1.7-9.3) 06/12/24 05:44
Eosinophils % 1.1 % (0-6) 06/12/24 05:44
Basophils % 0.7 % (0-2) 06/12/24 05:44
ESR 66 mm/hour (0-20) H 06/12/24 05:44
PT 15.5 Sec (11.4-14.6) H 06/07/24 20:34
INR 1.18 06/07/24 20:34
Lactic Acid 1.2 mmol/L (0.7-2.0) 06/07/24 22:07
C-Reactive Protein 78.60 mg/L (0.0-10.00) H 06/12/24 05:44
Microbiology Results
Micro:
06/13/24 16:45 Anaerobic Culture - Pending
Knee - Right
06/13/24 16:45 Wound Culture - Pending
Knee - Right Gram Stain - Pending
06/13/24 17:15 Anaerobic Culture - Pending
Leg - Right
06/13/24 17:15 Wound Culture - Pending
Leg - Right Gram Stain - Pending
06/10/24 15:23 Wound Culture - Final
Knee - Right Group G Streptococcus
Gram Stain - Final
06/07/24 21:47 Wound Culture - Final
Leg - Right Staph aureus MRSA
Escherichia coli - ESBL
Group G Streptococcus
Gram Stain - Final
06/08/24 06:20 MRSA Screen - Final
Nose Staph aureus MRSA
06/07/24 CT a/p: Some high attenuation density associated with prior gastric bypass limiting evaluation without gross findings to suggest active gastric bleeding. Please note, CT has decreased sensitivity for peptic ulcer disease. No findings to
suggest active colonic bleeding. Findings likely representing incidental small bowel transient intussusception.
06/09/24 Right knee XRAY: No osseous injury appreciated.
06/09/24 MRI RLE: Moderate to large suprapatellar joint effusion with thin septae. MRI has not been shown to be highly accurate for determination of septic joint, and arthrocentesis is generally considered the gold standard. As warranted,
consideration for arthrocentesis. No MR findings to suggest osteomyelitis. There is no evidence for fracture or significant bone bruise.
Thickening and increased T2-weighted signal involving the visualized popliteus muscle, most suggestive of muscular strain. Increased T2-weighted signal involving the posterior calf musculature, greatest involving the lateral head of the
gastrocnemius muscle. This finding would also be most suggestive of muscular strain. Of note, inflammatory/infectious myositis is a differential consideration.
There is a focal fluid collection between the lateral head of the gastrocnemius muscle and the posterior margin of the soleus, most likely fluid from muscular strain, although a focal infected fluid collection is also possible.
Mild increased T2-weighted signal involving the fibers of the distal vastus medialis and vastus lateralis, most suggestive of muscular strain.
Increased signal intensity involving the fibers of the ACL suggesting sprain and/or mucoid degeneration.
Fluid collection originating in the gastrocnemius/semimembranosus bursa, and extending superiorly along the anterior margin of the distal semimembranosus.
Assessment / Plan
# Septic right knee
# Right medial thigh abscess
- 06/13/2024 s/p I+D of thigh abscess and washout of right knee
- Await OR cultures.
- (Of note right knee aspiration grew Group G strep only)
- Add Ertapenem pending finding OR cx.
- Continue Vancomycin for now.
- Will de-escalate when final OR cx data available.
# Right calf laceration wound
- Wound healing without infection or cellulitis
- Wound colonized with MRSA, ESBL-E. coli, Group G strep.
# Fever resolved
# Leukocytosis trending down
# s/p GIB/blood loss anemia from NSAIDs
--- NOTE | 2024-06-14 10:17 | PHA.VAN.FU ---
Vancomycin Assessment / Plan
- Assessment
Renal Function: Stable
WBC's are: Stable
In the past 24 hrs, patient has been: Afebrile
Concomitant Antimicrobials: none
- Dosing Plan
Continue: vancomycin 2000 mg q12h
- Monitoring Plan
Level(s) appropriate: Recheck trough at minimum of weekly intervals, Repeat sooner for changes in renal function or clinical status
Next Level Due (Date): ~06/20 or sooner given high dose
- Follow Up
Pharmacy will continue to follow.
Vancomycin Follow UP
- -
Patient Age: 44
Patient Sex: Male
Vancomycin Day #: 7
Indication: Skin And Soft Tissue
Requesting Provider: Sam
Pertinent Antimicrobial Allergies:
NKDA
Height / Weight:
Height 5 ft 6 in
Actual Weight 113 kg
Adjusted BW in k.5
Pertinent Past Medical History: BMI ~40
- Vital Signs / Lab Results
Temp Pulse Resp BP Pulse Ox
97.8 F 81 23 131/80 91
06/14/24 07:48 06/14/24 08:00 06/14/24 08:00 06/14/24 08:00 06/14/24 08:00
Lab Results - Hematology
06/11/24 06/12/24 06/12/24
20:00 05:44 22:47
WBC Cancelled 13.4 H 11.5 H
06/13/24 06/14/24
05:26 06:30
WBC 11.8 H 12.1 H
Lab Results - Chemistry
06/12/24 06/13/24 06/14/24
05:44 05:26 06:30
BUN 10 11 13
Creatinine 0.6 L 0.6 L 0.5 L
Estimated Creat Clear > 125 > 125 > 125
Albumin 2.2 L
Microbiology Results
06/10/24 15:23 Wound Culture - Final
Knee - Right Group G Streptococcus
Gram Stain - Final
06/07/24 21:47 Wound Culture - Final
Leg - Right Staph aureus MRSA
Escherichia coli - ESBL
Group G Streptococcus
Gram Stain - Final
Therapeutic Drug Monitoring
Vancomycin Peak 21.8 ug/ml (18-26) 06/12/24 22:47
Vancomycin Trough 12.2 ug/ml (5-20) 06/13/24 05:26
--- NOTE | 2024-06-14 10:57 | W.PN.GI.CBS2 ---
Today's Communication / Plan
-
- start IV iron
- GI will sign off, please call if any further bleeding or significant drop in hgb
Assessment / Plan
-
#Acute UGIB 2/2 #Marginal Ulcer (on Gastric-Side of Anastomosis)
#Acute on Chronic Anemia
#Acute Blood Loss Anemia
#Septic Arthritis on R Knee
44-year-old male with past medical history of paroxysmal atrial fibrillation status post ablation, CVA status post tPA, Jani-en-Y gastric bypass, gastric ulcers post Jani-en-Y gastric bypass, GI bleed after tPA administration that stopped
spontaneously (patient states they were unsure where this was located), scrotal postoperative hematoma, lower extremity cellulitis and hypertension who presents to the emergency room with episode of bright red blood vomiting followed by 4 episodes
of bright red blood per rectum. Asked to evaluate for the same. In the setting of NSAID use Advil 600 mg daily as well as naproxen 550 mg twice daily. With prior history of gastric ulcer status post Jani-en-Y gastric bypass. Hemoglobin currently
5.8 up from 5.4 status post 2 units packed red blood cells. Patient continues to be n.p.o. at present time. On pantoprazole 40 mg IV twice daily. No further signs of bleeding since prior to arrival. Patient is going to receive 2 more units
packed red blood cells. Will anticipate EGD today after transfusion. Discussed with RN. Discussed with internal medicine. Discussed with patient who is agreeable. 06/12/24: Patient s/p total 7 units PRBC during admission, had 2 large episodes
of maroon blood per rectum with clots on 06/11/24. Negative CTA for active GI bleeding on 06/11/24.
EGD 06/08/24:Dr. Schmitt
The examined esophagus was normal.
Small gastric pouch c/w prior bypass, widely patent anastomosis
One large > 1cm non-bleeding cratered ulcer which was deep with multiple
areas of red spots, vessels was found distal to the gastrojejunal
anastomosis. Area was successfully injected with 5 mL of a 0.1 mg/mL
solution of epinephrine, the ulcer was too deep to safely treat which
alternative therapies.
Impression: - Normal esophagus.
- Non-bleeding deep jejunal ulcer. Injected.
- No specimens collected.
S/p EGD 06/[address] Romero: with non-bleeding cratered gastric ulcer at the anastomosis (marginal ulcer) with black and red spot s/p hemospray with Endoclot without any active bleeding or signs of recent bleeding, otherwise grossly normal
esophagus and remaining jejunum
Hgb remains stable 7.4 -> 7.4 --> 8.8 without signs of recurrent GI Bleeding since repeat EGD on 06/12.
Recommendations: 06/14/2024
- tolerating diet and hgb stable
- patient is understandably iron deficient from his RYGB and started IV iron to help with replacement -give while here.
-Told him to start a bariatric multivitamin outpatient
- Trend Hgb with serial CBC, transfuse for goal Hgb > 8.0
- Completed IV PPI gtt, would continue IV PPI 40 mg BiD while inpatient, ok to transition to BID PO and continue for 1 month, then once daily indefinitely
- Strict avoidance of all NSAIDs, tobacco. Tylenol for pain
- If concern for re-bleeding at anastomosis, would consider surgical consultation for potential revision of GJ anastomosis
- Rest of care as per primary team
GI will sign off. Please call back with any questions or if he rebleeds. If rebleeds would highly encourage surgical revision
Subjective
Subjective
Date of Service: June 14, 2024
Patient denies any abdominal pain. Has not had a bowel movement in a couple of days. Tolerating his diet well. Was taking intermittent NSAIDs outpatient
Objective
Data Reviewed
Laboratory Data:
Laboratory Results
06/14/24 06:30
06/14/24 06:30
Laboratory Results
PT 15.5 Sec (11.4-14.6) H 06/07/24 20:34
INR 1.18 06/07/24 20:34
APTT 30.8 Sec (23.4-35.0) 06/07/24 20:34
Magnesium 2.5 mg/dl (1.6-2.3) H 06/08/24 06:19
Total Bilirubin 0.4 mg/dl (0.2-1.3) 06/14/24 06:30
AST 24 U/L (17-59) 06/14/24 06:30
ALT 21 U/L (0-50) 06/14/24 06:30
Alkaline Phosphatase 53 U/L (38-126) 06/14/24 06:30
Vital Signs and I&O:
Vital Signs
Temp Pulse Resp BP Pulse Ox
97.8 F 81 23 131/80 91
06/14/24 07:48 06/14/24 08:00 06/14/24 08:00 06/14/24 08:00 06/14/24 08:00
I&O
06/13/24 06/14/24 06/15/24
06:59 06:59 06:59
Intake Total 50 / 50
Output Total 100 / 100
Balance -50 / -50
Physical Exam
Physical Exam
HEENT: Anicteric
GI: Soft, Non Distended and Non Tender
Neuro: Non Focal
[2024-06-14] MEDS: INVANZ 60 MG IV (12:56)
[2024-06-14] MEDS: FERRLECIT 110 MG IV (14:26)
--- NOTE | 2024-06-14 15:00 | PTCARENOTE ---
Patient pleasant, AAOx3. C/o severe pain to knee with movement. See PRN pain management on aug. Currently OOB to chair. Dressing CDI. Patient requiring 2L NC to keep sats >92%. Patient with dry cough. IS taught and given to patient, patient
cooperative. MD notified. Educated about constipation risk factors and medications available, refusing at this time. Girlfriend at bedside. VSS. Will closely monitor.
[2024-06-14] MEDS: TYLENOL 650 MG PO (20:50)
[2024-06-15] VITALS (10 sets, daily range): BP systolic 115–141; BP diastolic 66–89
--- NOTE | 2024-06-15 00:47 | PTCARENOTE ---
Assumed care for patient overnight, received report from dayshift RN. AAOx3 in good spirits tonight. Pt seems positive about his improvement with mobility working with PT. Pt was back into the bed at change of shift. NSR on tele. Pt having 8/10 pain
in that right knee, administered PRN Tylenol and PRN Dilaudid see AUG. Pt requiring 2L NC and is currently 94%. Replaced ice pack to the right knee. Significant other at the bedside. Call garcia is within reach.
[2024-06-15] MEDS: DILAUDID 0.5 MG IV ×6 (02:37→23:54)
[2024-06-15] MEDS: TYLENOL 650 MG PO ×2 (02:38→14:25)
[2024-06-15 05:43] LABS: Hematocrit 27.4 % (39.0-52.0); Hemoglobin 7.8 g/dL (13.0-18.0); Mean Corp Hgb Conc. 28.5 g/dL (33.0-37.0); Mean Corpuscular Hgb 24.6 pg (27.0-31.0); Mean Corpuscular Volume 86.4 fL (80.0-94.0); Mean Platelet Volume 9.6 fL (7.4-10.4); Platelet Count 206 10^3/uL (130-400); Red Blood Cell Count 3.17 10^6/uL (4.70-6.10); Red Cell Dist. Width 22.5 % (11.5-14.5); White Blood Cell Count 10.3 10^3/uL (4.8-10.8)
[2024-06-15] MEDS: VANCOCIN 540 MG IV (06:03)
[2024-06-15 06:22] LABS: Blood Urea Nitrogen 17 mg/dl (9-20); Calcium 7.5 mg/dl (8.4-10.2); Carbon Dioxide 24 mmol/L (22-30); Chloride 106 mmol/L (98-107); Estimated Creatinine Clearance > 125 ml/min; Glucose 91 mg/dl (70-99); Potassium 4.5 mmol/L (3.5-5.1); Sodium 134 mmol/L (135-145); eGFR > 60.00
[2024-06-15] MEDS: NSS (PRESERVATIVE FREE) 10 ML IV ×2 (07:38→19:37)
[2024-06-15] MEDS: PROTONIX IV 40 MG IV ×2 (07:38→19:38)
--- NOTE | 2024-06-15 07:51 | W.PN.ORTHO ---
Today's Communication / Plan
-
PT/OT
Walker/crutches for assistance during weightbearing
Weightbearing as tolerated
Ice with elevation to control swelling and pain
Antibiotics per ID
Nursing may change dressing as needed
Orthopedics to continue to follow
Assessment
.
Distal Motor Intact: Yes
Dressing:
Clean, dry and intact.
Assessment:
Right knee arthroscopic I&D with open I&D medial knee with packing June 13, [address] Escoto
Plan
.
Surgery / Date: 06/13/[address] Escoto
Activity:
Out of bed.
PT/OT
Discharge Plan: Home
Subjective
.
.:
Patient resting comfortably.
Vital Signs and Labs
.
Vital Signs and Labs:
Lab Results
06/15/24 05:04
06/15/24 05:04
Temp Pulse Resp BP Pulse Ox
97.5 F 65 11 130/78 93
06/15/24 06:12 06/15/24 06:00 06/15/24 04:00 06/15/24 06:00 06/15/24 06:00
PT 15.5 Sec (11.4-14.6) H 06/07/24 20:34
INR 1.18 06/07/24 20:34
Physical Exam
-
Right knee no warmth or erythema. Trace effusion noted. No palpable pain about the knee. Medial wound packing for the knee was removed. Passive motion 0 to 90 degrees without pain. No calf discomfort. Distal neurovascular was intact. New
dressing was reapplied.
--- NOTE | 2024-06-15 09:17 | W.PN.ID1 ---
Date of Service
Date of Service: June 15, 2024
Today's Communication
See below.
Assessment / Plan
# Septic right knee
# Right medial thigh abscess
- 06/13/2024 s/p I+D of thigh abscess and washout of right knee
- OR cultures from knee and abscess: Group G streptococcus
- Right knee aspiration Group G strep
- Narrow Vancomycin/Ertapenem to ceftriaxone 2gIV q24h.
- Recommend 6 weeks if IV ceftriaxone through 07/20/24 with weekly CRP, CBC, CMP
Unfortunately, pt's insurance does not cover home IV abx.
Outpatient Infusion Department for daily IV abx is an alternative option, BUT patient does not have transportation to get there.
Discussed with Treatment Supervisor. PT recommended rehab. If accepted to rehab facility, he may possibly continue IV antibiotic there.
If no insurance coverage for all of above, dc home on second-line tx - cephalexin 1000 mg po q6h through 07/20/2024.
# Right calf laceration wound
- Wound healing without infection or cellulitis
- Wound colonized with MRSA, ESBL-E. coli, Group G strep.
# Fever resolved
# Leukocytosis trending down
# s/p GIB/blood loss anemia from NSAIDs
Chief Complaint
-: Other (septic knee)
Subjective / Review of Systems
Feels better.
Vital Signs / Physical Exam
Vital Signs
Vital Signs
Temp Pulse Resp BP Pulse Ox
97.8 F 65 11 130/78 93
06/15/24 07:21 06/15/24 06:00 06/15/24 04:00 06/15/24 06:00 06/15/24 06:00
Physical Exam
Constitutional: No Acute Distress and Comfortable
Cardiovascular: Regular Rate
Pulmonary: Clear
Gastrointestinal: Soft, Non Tender, Non Distended and Normal Bowel Sounds
Extremities: Edema (RLE 1+)
Wound: Other (right knee dressing dry)
Neurological: AO x 3
Objective Data
Lab Data
Lab Results
06/15/24 05:04
06/15/24 05:04
ESR 66 mm/hour (0-20) H 06/12/24 05:44
PT 15.5 Sec (11.4-14.6) H 06/07/24 20:34
INR 1.18 06/07/24 20:34
APTT 30.8 Sec (23.4-35.0) 06/07/24 20:34
Estimated Creat Clear > 125 ml/min 06/15/24 05:04
Lactic Acid 1.2 mmol/L (0.7-2.0) 06/07/24 22:07
Total Bilirubin 0.4 mg/dl (0.2-1.3) 06/14/24 06:30
AST 24 U/L (17-59) 06/14/24 06:30
ALT 21 U/L (0-50) 06/14/24 06:30
Alkaline Phosphatase 53 U/L (38-126) 06/14/24 06:30
C-Reactive Protein 78.60 mg/L (0.0-10.00) H 06/12/24 05:44
Most recent labs reviewed.
Micro Results:
06/13/24 16:45 Wound Culture - Preliminary
Knee - Right Group G Streptococcus
Gram Stain - Preliminary
06/13/24 17:15 Wound Culture - Preliminary
Leg - Right Group G Streptococcus
Gram Stain - Preliminary
06/13/24 17:15 Anaerobic Culture - Preliminary
Leg - Right Culture pending. Anaerobic cultures are examined after 3
days incubation. Additional information to follow.
06/13/24 16:45 Anaerobic Culture - Preliminary
Knee - Right Culture pending. Anaerobic cultures are examined after 3
days incubation. Additional information to follow.
06/10/24 15:23 Wound Culture - Final
Knee - Right Group G Streptococcus
Gram Stain - Final
06/07/24 21:47 Wound Culture - Final
Leg - Right Staph aureus MRSA
Escherichia coli - ESBL
Group G Streptococcus
Gram Stain - Final
06/08/24 06:20 MRSA Screen - Final
Nose Staph aureus MRSA
06/07/24 CT a/p: Some high attenuation density associated with prior gastric bypass limiting evaluation without gross findings to suggest active gastric bleeding. Please note, CT has decreased sensitivity for peptic ulcer disease. No findings to
suggest active colonic bleeding. Findings likely representing incidental small bowel transient intussusception.
06/09/24 Right knee XRAY: No osseous injury appreciated.
06/09/24 MRI RLE: Moderate to large suprapatellar joint effusion with thin septae. MRI has not been shown to be highly accurate for determination of septic joint, and arthrocentesis is generally considered the gold standard. As warranted,
consideration for arthrocentesis. No MR findings to suggest osteomyelitis. There is no evidence for fracture or significant bone bruise.
Thickening and increased T2-weighted signal involving the visualized popliteus muscle, most suggestive of muscular strain. Increased T2-weighted signal involving the posterior calf musculature, greatest involving the lateral head of the
gastrocnemius muscle. This finding would also be most suggestive of muscular strain. Of note, inflammatory/infectious myositis is a differential consideration.
There is a focal fluid collection between the lateral head of the gastrocnemius muscle and the posterior margin of the soleus, most likely fluid from muscular strain, although a focal infected fluid collection is also possible.
Mild increased T2-weighted signal involving the fibers of the distal vastus medialis and vastus lateralis, most suggestive of muscular strain.
Increased signal intensity involving the fibers of the ACL suggesting sprain and/or mucoid degeneration.
Fluid collection originating in the gastrocnemius/semimembranosus bursa, and extending superiorly along the anterior margin of the distal semimembranosus.
Care Review
Plan reviewed with: Nurse (Malcom) and Physician (Dr. Ferrari)
[2024-06-15] MEDS: ROCEPHIN 2000 MG IV (11:03)
[2024-06-15] MEDS: STERILE WATER FOR INJECTION 20 ML IV (11:04)
--- NOTE | 2024-06-15 13:05 | PTCARENOTE ---
Patient with no complaints, moving better with minimal assistance. Ortho removed packing and redressed right knee at bedside. Patient tolerated well. Pain controlled, see mar. VSS. Still unable to tolerate room air, sats 83% on room air. Sats 94% on
2L NC. FREGOSO. Using incentive spirometer appropriately. Patient making needs known, girlfriend at bedside. Will continue to monitor.
--- NOTE | 2024-06-15 14:23 | W.PN.HOSP.TC ---
Today's Communication/Plan
-
Narrow antibiotic to Rocephin
Assessment / Plan
Assessment / Plan
44 man with knee pain and GI bleeding.
1. Acute GI bleed of gastrojejunal anastomoses - resolving, s/p second EGD procedure, H/H much improved, now 8.8/29.7.
Acute blood loss anemia
H/O gastric bypass
-S/p EGD that showed deep cratered ulcer at GJ anastomosis, s/p endoscopic epinephrine injection
Went back to endoscopy suite on 06/12/24
Ulcer sprayed with clotting material
H/H better this am
-Status post 6 units of PRBC; hemoglobin stable at 7.4 x 2; currently on PPI BID
-Had been transitioned from clear liquids to full liquid diet by GI team. Diet to be advanced per GI.
-GI following
-Has remained hemodynamically stable
-Continue to trend CBC every 24 hours, if H/H same or better than yesterday. hemoglobin goal >7
If H/H < yesterday, then H/H q6h.
-Continue to advance diet as GI seems appropriate
-Continue PPI, absolute avoidance of NSAIDs and steroids now and after discharge
-Oral PPi at discharge
1/2
-OK to go to telemetry today
2. Septic arthritis of right knee/thigh space - s/p ortho procedure. Knee aspirate growing group G strep
Right knee with effusion and severe pain
Complicated by Purulent cellulitis of the RLE
-Was started on IV vancomycin for presumed cellulitis of the right lower extremity
-Recently had right knee injury; has had worsening pain here; elevated inflammatory markers
-Currently with leukocytosis; MRI showed effusion of the right knee
-S/p arthrocentesis, culture sent and growing GGS.
Cultures show: MRSA, ESBL e-coli, Group G Strep
ID consulted for help with antibiotics
-Antibiotics per ID.
-Trend CBC, temperature curve,
-Follow cultures from arthrocentesis
-Ortho following s/p procedure
-PT and recovery plan per ortho
1/2
Narrow to Rocephin.
Patient will need rehab after discharge and 6 weeks of IV antibiotic.
Physiatry consult.
3. Morbid obesity s/p gastric bypass -BMI 40, affects all aspects of care. He had been 600+ Lbs and successfully lost 400Lbs after gastric bypass.
He feels this is his ideal weight, given his history, However, it may be best to be closer to a BMI of 30 than 40.
-He states he knows how to lose weight.
-Outpatient follow up with his PCP
-May benefit at some point from excess skin removal surgery
4. Paroxysmal AF s/p ablation -No longer on anticoagulants nor rate/rhythm controlling agents
-Heart rate WNL here
-No active plan needed at this time
5. H/O CVA s/p tPA
-Likely related to previous AF history
-No residual deficits
6. Low Ca. Corrects to normal calcium (has low albumin)
-artifact of lab measurement.
DVT prophylaxis: SCD
Diet: NPO for OR; resume full liquids afterward, then advance as tolerated and guided by GI
CODE STATUS: Full code
Anticipated Discharge: > 48 hours
Subjective/Interval History
-
Date of Service: June 15, 2024
Patient seen and examined at bedside, at bedside, patient was out of bed to chair during my interview.
Shortness of breath improved.
Discussed with infectious disease, will narrow antibiotic to Rocephin
Patient will need rehab on discharge, discussed with care management.
Objective Data
-
Labs:
Laboratory Results
06/15/24
05:04
WBC 10.3
Hgb 7.8 L
Hct 27.4 L
Plt Count 206 D
Sodium 134 L
Potassium 4.5
Chloride 106
Carbon Dioxide 24
BUN 17
Creatinine 0.6 L
Glucose 91
Calcium 7.5 L
Vital Signs:
Vital Signs
Temp Pulse Resp BP Pulse Ox
97.9 F 102 17 122/73 94
06/15/24 11:46 06/15/24 12:00 06/15/24 12:00 06/15/24 12:00 06/15/24 12:00
I&O
06/14/24 06/15/24 06/16/24
06:59 06:59 06:59
Intake Total 50 / 50 1460 / 1460 480 / 480
Output Total 100 / 100 600 / 600
Balance -50 / -50 860 / 860 480 / 480
Physical Exam
-
General: Well Developed, Well Nourished, No Apparent Distress and Comfortable
HEENT: Normocephalic, Atraumatic, Moist Mucous Membranes, No Ptosis, PERRLA and Nose Appears Normal
Respiratory: Rales and Non Labored Respirations
Cardiac: Regular Rhythm and S1/S2
Breast: Deferred by me
GI: Soft, Nontender, Nondistended and Normal Bowel Sounds
Genito-urinary: No Costovertebral Tender
Musculoskeletal: No Clubbing, No Cyanosis, No Edema and Other (Right knee dressing)
Skin: Warm
Neuro: Awake, Alert, Oriented, AO x 3 and No Motor Deficits
Psych: Calm
[2024-06-15] MEDS: FERRLECIT 110 MG IV (14:28)
--- NOTE | 2024-06-15 16:30 | PTCARENOTE ---
Pt. received from IMU. Assessment completed and VSS. Pt. oriented to unit and states no further requests at this time.
--- NOTE | 2024-06-15 17:42 | CM ---
Patient with GI bleed s/p transfusions, septic arthritis right knee. Contact Precautions. O2 2L. Receiving IV Abx, IV Ferric Na Gluconate, IV Protonix. PT 06/14 recommends acute rehab. Patient declined PT/OT today.
Script received from Dr Portillo for Ceftriaxone until 07/20/24 via PICC.
Spoke with [facility]; they cannot accept due to no benefits for [place]. Per Errol, they ran his insurance. Says it�s termed as of 06/13/24 and they show no active policy for him.
Spoke with Anna [facility]; she provided the [place] [employer] Employability Assessment Form & Health Sustaining Medication Assessment Form and requested MD complete the forms so she could submit to Medicaid- Dr Teague completed. faxed the
forms back to [facility] - confirmed received. Anna says she is uncertain patient will be approved for [place].
Met with patient who stated he cannot do home IV infusion or VN for PT/OT as he checked with his insurance ('[employer]') and he has no benefits for this.
He confirms he doesn't have a PCP - [facility] to establish a PCP and he agrees to that.
Patient doesn't think he can go to the [facility] for his IV [facility]x as he has no one to provide a rid (his SO doesn't drive), and cannot afford Uber/Lyft for that.
Patient's primary concern is that he get setup with disability zainab through his employer -asked him to obtain copy of disability forms from his employer ([employer]) and will ask Hospitalist if he can sign the forms.
Spoke with patient about need to please participate with PT/OT for discharge planning - he agrees to do this tomorrow.
Plan follow up with patient tomorrow for Employer Disability Forms and request MD complete forms.
Plan will need home IV Infusion - plan fax to [facility] to check benefits and than work on transportation issues to [place].
[2024-06-16] VITALS (7 sets, daily range): BP systolic 115–149; BP diastolic 73–100; PULSE 93; O2SAT 97
[2024-06-16] MEDS: DILAUDID 0.5 MG IV ×6 (04:30→23:59)
[2024-06-16] MEDS: PROTONIX IV 40 MG IV ×2 (07:13→19:53)
[2024-06-16] MEDS: NSS (PRESERVATIVE FREE) 10 ML IV ×2 (07:13→19:53)
[2024-06-16 08:09] LABS: Hematocrit 27.1 % (39.0-52.0); Hemoglobin 8.1 g/dL (13.0-18.0); Mean Corp Hgb Conc. 29.9 g/dL (33.0-37.0); Mean Corpuscular Hgb 25.2 pg (27.0-31.0); Mean Corpuscular Volume 84.4 fL (80.0-94.0); Mean Platelet Volume 9.8 fL (7.4-10.4); Platelet Count 185 10^3/uL (130-400); Red Blood Cell Count 3.21 10^6/uL (4.70-6.10); Red Cell Dist. Width 22.9 % (11.5-14.5); White Blood Cell Count 10.9 10^3/uL (4.8-10.8)
--- NOTE | 2024-06-16 08:17 | W.PN.ORTHO ---
Today's Communication / Plan
-
PT/OT
Walker/crutches for assistance during weightbearing
DVT ppx- per primary in setting of GI bleed; venous foot pumps or SCDs at minimum, early ambulation
Weightbearing as tolerated
Ice with elevation to control swelling and pain
Antibiotics per ID; G strep from joint and abscess
Nursing may change dressing as needed
Orthopedics to continue to follow
Assessment
.
Distal Motor Intact: Yes
Dressing:
Clean, dry and intact.
Plan
.
Surgery / Date: 06/13/[address] Escoto
Activity:
Out of bed.
PT/OT
Subjective
.
.:
Patient resting comfortably. reports some tightness in posterolateral calf.
Vital Signs and Labs
.
Vital Signs and Labs:
Lab Results
06/16/24 06:41
06/15/24 05:04
Temp Pulse Resp BP Pulse Ox
97.9 F 101 19 149/90 96
06/16/24 07:10 06/16/24 07:10 06/16/24 07:10 06/16/24 07:10 06/16/24 07:10
PT 15.5 Sec (11.4-14.6) H 06/07/24 20:34
INR 1.18 06/07/24 20:34
Physical Exam
-
dressing CDI- mild swelling of right leg, some loss of wrinkles of skin- comparable to other side in terms of edema; NVI L3-S1. No palpable cords or masses
[2024-06-16] MEDS: STERILE WATER FOR INJECTION 20 ML IV (10:43)
[2024-06-16] MEDS: ROCEPHIN 2000 MG IV (10:43)
--- NOTE | 2024-06-16 12:27 | W.PN.ID1 ---
Date of Service
Date of Service: June 16, 2024
Today's Communication
Continue ceftriaxone for now.
Assessment / Plan
# Septic right knee
# Right medial thigh abscess
- 06/13/2024 s/p I+D of thigh abscess and washout of right knee
- OR cultures from knee and abscess: Group G streptococcus
- Right knee aspiration Group G strep
- Narrow Vancomycin/Ertapenem to ceftriaxone 2gIV q24h.
- Recommend 6 weeks if IV ceftriaxone through 07/20/24 with weekly CRP, CBC, CMP
Unfortunately, pt's insurance does not cover home IV abx.
Outpatient Infusion Department for daily IV abx is an alternative option, BUT patient does not have transportation to get there. manager transmission looking into coverage and transportation.
Discussed with Environment Coordinator. PT recommended rehab. [facility] denied him due to insurance coverage.
PT vesta today recommends rehab.
- Continue ceftriaxone for now.
- If DC home and unable to receive IV abx at [facility], transition to second-line tx - cephalexin 1000 mg po q6h through 07/20/2024.
# Right calf laceration wound
- Wound healing without infection or cellulitis
- Wound colonized with MRSA, ESBL-E. coli, Group G strep.
# Fever resolved
# Leukocytosis resolving
# s/p GIB/blood loss anemia from NSAIDs
Chief Complaint
-: Other (septic knee)
Subjective / Review of Systems
Working with PT.
Vital Signs / Physical Exam
Vital Signs
Vital Signs
Temp Pulse Resp BP Pulse Ox
97.9 F 101 19 149/90 96
06/16/24 07:10 06/16/24 07:10 06/16/24 07:10 06/16/24 07:10 06/16/24 07:10
Physical Exam
Constitutional: No Acute Distress
Cardiovascular: Regular Rate and S1/S2
Pulmonary: Clear
Gastrointestinal: Soft, Non Tender and Non Distended
Neurological: AO x 3
Objective Data
Lab Data
Lab Results
06/16/24 06:41
06/15/24 05:04
ESR 66 mm/hour (0-20) H 06/12/24 05:44
PT 15.5 Sec (11.4-14.6) H 06/07/24 20:34
INR 1.18 06/07/24 20:34
APTT 30.8 Sec (23.4-35.0) 06/07/24 20:34
Estimated Creat Clear > 125 ml/min 06/15/24 05:04
Lactic Acid 1.2 mmol/L (0.7-2.0) 06/07/24 22:07
Total Bilirubin 0.4 mg/dl (0.2-1.3) 06/14/24 06:30
AST 24 U/L (17-59) 06/14/24 06:30
ALT 21 U/L (0-50) 06/14/24 06:30
Alkaline Phosphatase 53 U/L (38-126) 06/14/24 06:30
C-Reactive Protein 78.60 mg/L (0.0-10.00) H 06/12/24 05:44
Most recent labs reviewed.
Micro Results:
06/13/24 17:15 Wound Culture - Preliminary
Leg - Right Group G Streptococcus
Gram Stain - Preliminary
06/13/24 16:45 Wound Culture - Preliminary
Knee - Right Group G Streptococcus
Gram Stain - Preliminary
06/13/24 17:15 Anaerobic Culture - Preliminary
Leg - Right Culture pending. Anaerobic cultures are examined after 3
days incubation. Additional information to follow.
06/13/24 16:45 Anaerobic Culture - Preliminary
Knee - Right Culture pending. Anaerobic cultures are examined after 3
days incubation. Additional information to follow.
06/10/24 15:23 Wound Culture - Final
Knee - Right Group G Streptococcus
Gram Stain - Final
06/07/24 21:47 Wound Culture - Final
Leg - Right Staph aureus MRSA
Escherichia coli - ESBL
Group G Streptococcus
Gram Stain - Final
06/08/24 06:20 MRSA Screen - Final
Nose Staph aureus MRSA
06/07/24 CT a/p: Some high attenuation density associated with prior gastric bypass limiting evaluation without gross findings to suggest active gastric bleeding. Please note, CT has decreased sensitivity for peptic ulcer disease. No findings to
suggest active colonic bleeding. Findings likely representing incidental small bowel transient intussusception.
06/09/24 Right knee XRAY: No osseous injury appreciated.
06/09/24 MRI RLE: Moderate to large suprapatellar joint effusion with thin septae. MRI has not been shown to be highly accurate for determination of septic joint, and arthrocentesis is generally considered the gold standard. As warranted,
consideration for arthrocentesis. No MR findings to suggest osteomyelitis. There is no evidence for fracture or significant bone bruise.
Thickening and increased T2-weighted signal involving the visualized popliteus muscle, most suggestive of muscular strain. Increased T2-weighted signal involving the posterior calf musculature, greatest involving the lateral head of the
gastrocnemius muscle. This finding would also be most suggestive of muscular strain. Of note, inflammatory/infectious myositis is a differential consideration.
There is a focal fluid collection between the lateral head of the gastrocnemius muscle and the posterior margin of the soleus, most likely fluid from muscular strain, although a focal infected fluid collection is also possible.
Mild increased T2-weighted signal involving the fibers of the distal vastus medialis and vastus lateralis, most suggestive of muscular strain.
Increased signal intensity involving the fibers of the ACL suggesting sprain and/or mucoid degeneration.
Fluid collection originating in the gastrocnemius/semimembranosus bursa, and extending superiorly along the anterior margin of the distal semimembranosus.
--- NOTE | 2024-06-16 13:37 | W.PN.HOSP.TC ---
Addendum entered and electronically signed by Vonda Teague MD 06/16/24 16:38:
Hyponatremia
Original Note:
Today's Communication/Plan
-
During ultrasound bilateral lower extremities.
Assessment / Plan
Assessment / Plan
44 man with knee pain and GI bleeding.
1. Acute GI bleed of gastrojejunal anastomoses - resolving, s/p second EGD procedure, H/H much improved, now 8.8/29.7.
Acute blood loss anemia
H/O gastric bypass
-S/p EGD that showed deep cratered ulcer at GJ anastomosis, s/p endoscopic epinephrine injection
Went back to endoscopy suite on 06/12/24
Ulcer sprayed with clotting material
H/H better this am
-Status post 6 units of PRBC; hemoglobin stable at 7.4 x 2; currently on PPI BID
-Had been transitioned from clear liquids to full liquid diet by GI team. Diet to be advanced per GI.
-GI following
-Has remained hemodynamically stable
-Continue to trend CBC
-Continue to advance diet as GI seems appropriate
-Continue PPI, absolute avoidance of NSAIDs and steroids now and after discharge
-Oral PPi at discharge
1/2
-OK to go to telemetry today
1/3
Hemoglobin remains stable
2. Septic arthritis of right knee/thigh space - s/p ortho procedure. Knee aspirate growing group G strep
Right knee with effusion and severe pain
Complicated by Purulent cellulitis of the RLE
-Was started on IV vancomycin for presumed cellulitis of the right lower extremity
-Recently had right knee injury; has had worsening pain here; elevated inflammatory markers
-Currently with leukocytosis; MRI showed effusion of the right knee
-S/p arthrocentesis, culture sent and growing GGS.
Cultures show: MRSA, ESBL e-coli, Group G Strep
ID consulted for help with antibiotics
-Antibiotics per ID.
-Trend CBC, temperature curve,
-Follow cultures from arthrocentesis
-Ortho following s/p procedure
-PT and recovery plan per ortho
06/15
Narrow to Rocephin.
Patient will need rehab after discharge and 6 weeks of IV antibiotic.
Physiatry consult.
06/16
Noted left lower extremity swelling.
Pending ultrasound lower extremities
3. Morbid obesity s/p gastric bypass -BMI 40, affects all aspects of care. He had been 600+ Lbs and successfully lost 400Lbs after gastric bypass.
He feels this is his ideal weight, given his history, However, it may be best to be closer to a BMI of 30 than 40.
-He states he knows how to lose weight.
-Outpatient follow up with his PCP
-May benefit at some point from excess skin removal surgery
4. Paroxysmal AF s/p ablation -No longer on anticoagulants nor rate/rhythm controlling agents
-Heart rate WNL here
-No active plan needed at this time
5. H/O CVA s/p tPA
-Likely related to previous AF history
-No residual deficits
6. Low Ca. Corrects to normal calcium (has low albumin)
-artifact of lab measurement.
DVT prophylaxis: SCD
Diet: Regular
CODE STATUS: Full code
Anticipated Discharge: > 48 hours
Subjective/Interval History
-
Date of Service: June 16, 2024
Patient seen and examined at bedside, denies any chest pain or shortness of breath, was having tachycardia with ambulation today, noted to have more swelling in the left leg.
Pending ultrasound bilateral lower extremity.
Objective Data
-
Labs:
Laboratory Results
06/16/24
06:41
WBC 10.9 H
Hgb 8.1 L
Hct 27.1 L
Plt Count 185
Vital Signs:
Vital Signs
Temp Pulse Resp BP Pulse Ox
97.9 F 101 19 149/90 96
06/16/24 07:10 06/16/24 07:10 06/16/24 07:10 06/16/24 07:10 06/16/24 07:10
I&O
06/15/24 06/16/24 06/17/24
06:59 06:59 06:59
Intake Total 1460 / 1460 1860 / 1860
Output Total 600 / 600 587 / 587
Balance 860 / 860 1273 / 1273
Physical Exam
-
General: Well Developed, Well Nourished, No Apparent Distress and Comfortable
HEENT: Normocephalic, Atraumatic, Moist Mucous Membranes, No Ptosis, PERRLA and Nose Appears Normal
Respiratory: Rales and Non Labored Respirations
Cardiac: Regular Rhythm and S1/S2
Breast: Deferred by me
GI: Soft, Nontender, Nondistended and Normal Bowel Sounds
Genito-urinary: No Costovertebral Tender
Musculoskeletal: No Clubbing, No Cyanosis, No Edema and Other (Right knee dressing-left lower extremity +3 edema)
Skin: Warm
Neuro: Awake, Alert, Oriented, AO x 3 and No Motor Deficits
Psych: Calm
[2024-06-16] MEDS: FERRLECIT 110 MG IV (15:08)
--- NOTE | 2024-06-16 16:26 | PN.CDI ---
CDI
- -
CDI:
Physician Documentation Request
Admit Date: 06/07/24 22:56
Dear Doctor Ho,
Patient admitted with acute GI bleed.
Na levels documented below:
Laboratory Tests
06/10/24 06/11/24 06/15/24
06:29 09:06 05:04
Sodium 133 L 132 L 134 L
Based on the above, please clarify in the progress notes, the appropriate diagnosis, if significant, that supports the above abnormalities and additional evaluation, monitoring and/or treatment rendered:
Hyponatremia
Insignificant abnormal lab findings
Other
Use of terms such as suspected, likely, concern for, or probable (associated with a specific diagnosis that is being evaluated, monitored, or treated as if it exists) are acceptable and can be coded in the inpatient setting, when documented at the
time of discharge.
Thank you,
Catherine LOYOLA,RN,CCDS
CDI Specialist
Available via [facility] text
Please use your independent medical judgment in providing your response.
--- NOTE | 2024-06-16 17:02 | CM ---
Spoke with previous CM on case who reviewed efforts put forth thus far to get coverage for patient. Met with patient who stated that there is no way that he would be able to transport to [facility] daily. He asked if his ABX could be PO. Will discuss with
ID. If not, will attempt to obtain funding for him. Will call Pennie Funk as well to discuss the possibility of him obtaining ongoing medical care.
Plan: Case management will continue to follow and assist with discharge planning. Home with ABX when stable.
[2024-06-16] MEDS: FLUSH (NSS) 2 FLUSH IV (19:56)
[2024-06-17 03:00] VITALS: BP 105/70
[2024-06-17] MEDS: DILAUDID 0.5 MG IV ×3 (04:37→14:38)
[2024-06-17 07:49] VITALS: BP 132/75
[2024-06-17 08:37] LABS: Hematocrit 26.8 % (39.0-52.0); Hemoglobin 7.8 g/dL (13.0-18.0); Mean Corp Hgb Conc. 29.1 g/dL (33.0-37.0); Mean Corpuscular Volume 85.9 fL (80.0-94.0); Mean Platelet Volume 10.6 fL (7.4-10.4); Platelet Count 175 10^3/uL (130-400); Red Blood Cell Count 3.12 10^6/uL (4.70-6.10); Red Cell Dist. Width 23.1 % (11.5-14.5); White Blood Cell Count 9.9 10^3/uL (4.8-10.8)
--- NOTE | 2024-06-17 08:58 | W.PN.ORTHO ---
Today's Communication / Plan
-
PT/OT
Weight bearing as tolerated. Range of motion as tolerated
Walker/crutches for assistance during weightbearing
DVT ppx- per primary in setting of GI bleed; venous foot pumps or SCDs at minimum, early ambulation
Ice with elevation to control swelling and pain
OR cultures with group G strep. Antibiotics per ID, currently ceftriaxone
Nursing may change dressing as needed
For ultrasound bilateral lower extremities today
Orthopedics to continue to follow
Assessment
.
Distal Motor Intact: Yes
Dressing:
Clean, dry and intact.
Plan
.
Surgery / Date: 06/13/[address] Escoto
Activity:
Out of bed.
PT/OT
Subjective
.
.:
Patient resting comfortably in bed this morning. He reports soreness in the knee with range of motion
Vital Signs and Labs
.
Vital Signs and Labs:
Lab Results
06/17/24 07:17
06/15/24 05:04
Temp Pulse Resp BP Pulse Ox
97.8 F 97 16 132/75 98
06/17/24 07:49 06/17/24 07:49 06/17/24 07:49 06/17/24 07:49 06/17/24 07:49
PT 15.5 Sec (11.4-14.6) H 06/07/24 20:34
INR 1.18 06/07/24 20:34
Physical Exam
-
dressing CDI- mild swelling of right leg, some loss of wrinkles of skin- comparable to other side in terms of edema; NVI L3-S1. No palpable cords or masses
[2024-06-17] MEDS: NSS (PRESERVATIVE FREE) 10 ML IV ×2 (11:16→20:27)
[2024-06-17] MEDS: ROCEPHIN 2000 MG IV (11:16)
[2024-06-17] MEDS: PROTONIX IV 40 MG IV ×2 (11:16→20:27)
[2024-06-17] MEDS: STERILE WATER FOR INJECTION 20 ML IV (11:17)
--- NOTE | 2024-06-17 13:00 | W.PN.ID1 ---
Date of Service
Date of Service: June 17, 2024
Today's Communication
Continue ceftriaxone.
Assessment / Plan
# Septic right knee
# Right medial thigh abscess
- 06/13/2024 s/p I+D of thigh abscess and washout of right knee
- OR cultures from knee and abscess: Group G streptococcus
- Right knee aspiration Group G strep
- Recommend 6 weeks if IV ceftriaxone through 07/20/24 with weekly CRP, CBC, CMP
Unfortunately, pt's insurance does not cover home IV abx.
Outpatient Infusion Department for daily IV abx is an alternative option, BUT patient does not have transportation to get there. 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
- PT recommends acute rehab. [facility] denied him due to insurance coverage.
- Continue ceftriaxone for now.
- If DC home and unable to receive IV abx at OID, transition to second-line tx - cephalexin 1000 mg po q6h through 07/20/2024.
# Right calf laceration wound
- Wound healing without infection or cellulitis
- Wound colonized with MRSA, ESBL-E. coli, Group G strep.
# Fever resolved
# Leukocytosis resolving
# s/p GIB/blood loss anemia from NSAIDs
Chief Complaint
-: Other (septic knee)
Subjective / Review of Systems
Tolerating abx.
Ambulated limited by right knee pain.
Vital Signs / Physical Exam
Vital Signs
Vital Signs
Temp Pulse Resp BP Pulse Ox
97.8 F 97 16 132/75 98
06/17/24 07:49 06/17/24 07:49 06/17/24 07:49 06/17/24 07:49 06/17/24 07:49
Physical Exam
Constitutional: No Acute Distress and Comfortable
Cardiovascular: Regular Rate and S1/S2
Pulmonary: Clear
Gastrointestinal: Soft, Non Tender and Non Distended
Neurological: AO x 3
Objective Data
Lab Data
Lab Results
06/17/24 07:17
06/15/24 05:04
ESR 66 mm/hour (0-20) H 06/12/24 05:44
PT 15.5 Sec (11.4-14.6) H 06/07/24 20:34
INR 1.18 06/07/24 20:34
APTT 30.8 Sec (23.4-35.0) 06/07/24 20:34
Estimated Creat Clear > 125 ml/min 06/15/24 05:04
Lactic Acid 1.2 mmol/L (0.7-2.0) 06/07/24 22:07
Total Bilirubin 0.4 mg/dl (0.2-1.3) 06/14/24 06:30
AST 24 U/L (17-59) 06/14/24 06:30
ALT 21 U/L (0-50) 06/14/24 06:30
Alkaline Phosphatase 53 U/L (38-126) 06/14/24 06:30
C-Reactive Protein 78.60 mg/L (0.0-10.00) H 06/12/24 05:44
Most recent labs reviewed.
Micro Results:
06/13/24 17:15 Anaerobic Culture - Preliminary
Leg - Right NO ANAEROBES ISOLATED
06/13/24 16:45 Anaerobic Culture - Preliminary
Knee - Right NO ANAEROBES ISOLATED
06/13/24 17:15 Wound Culture - Preliminary
Leg - Right Group G Streptococcus
Gram Stain - Preliminary
06/13/24 16:45 Wound Culture - Preliminary
Knee - Right Group G Streptococcus
Gram Stain - Preliminary
06/10/24 15:23 Wound Culture - Final
Knee - Right Group G Streptococcus
Gram Stain - Final
06/07/24 21:47 Wound Culture - Final
Leg - Right Staph aureus MRSA
Escherichia coli - ESBL
Group G Streptococcus
Gram Stain - Final
06/08/24 06:20 MRSA Screen - Final
Nose Staph aureus MRSA
06/07/24 CT a/p: Some high attenuation density associated with prior gastric bypass limiting evaluation without gross findings to suggest active gastric bleeding. Please note, CT has decreased sensitivity for peptic ulcer disease. No findings to
suggest active colonic bleeding. Findings likely representing incidental small bowel transient intussusception.
06/09/24 Right knee XRAY: No osseous injury appreciated.
06/09/24 MRI RLE: Moderate to large suprapatellar joint effusion with thin septae. MRI has not been shown to be highly accurate for determination of septic joint, and arthrocentesis is generally considered the gold standard. As warranted,
consideration for arthrocentesis. No MR findings to suggest osteomyelitis. There is no evidence for fracture or significant bone bruise.
Thickening and increased T2-weighted signal involving the visualized popliteus muscle, most suggestive of muscular strain. Increased T2-weighted signal involving the posterior calf musculature, greatest involving the lateral head of the
gastrocnemius muscle. This finding would also be most suggestive of muscular strain. Of note, inflammatory/infectious myositis is a differential consideration.
There is a focal fluid collection between the lateral head of the gastrocnemius muscle and the posterior margin of the soleus, most likely fluid from muscular strain, although a focal infected fluid collection is also possible.
Mild increased T2-weighted signal involving the fibers of the distal vastus medialis and vastus lateralis, most suggestive of muscular strain.
Increased signal intensity involving the fibers of the ACL suggesting sprain and/or mucoid degeneration.
Fluid collection originating in the gastrocnemius/semimembranosus bursa, and extending superiorly along the anterior margin of the distal semimembranosus.
[2024-06-17 13:09] VITALS: BP 126/84
--- NOTE | 2024-06-17 14:10 | W.PN.HOSP.TC ---
Today's Communication/Plan
-
cont iv abx
le us neg
pending cm work on dc
Assessment / Plan
Assessment / Plan
44 man with knee pain and GI bleeding.
1. Acute GI bleed of gastrojejunal anastomoses - resolving, s/p second EGD procedure, H/H much improved, now 8.8/29.7.
Acute blood loss anemia
H/O gastric bypass
-S/p EGD that showed deep cratered ulcer at GJ anastomosis, s/p endoscopic epinephrine injection
Went back to endoscopy suite on 06/12/24
Ulcer sprayed with clotting material
trend H/H
-Status post 6 units of PRBC; hemoglobin stable at 7.4 x 2; currently on PPI BID
-Had been transitioned from clear liquids to full liquid diet by GI team. Diet to be advanced per GI.
-GI following
-Has remained hemodynamically stable
-Continue to trend CBC
-Continue to advance diet as GI seems appropriate
-Continue PPI, absolute avoidance of NSAIDs and steroids now and after discharge
-Oral PPi at discharge
1/2
-OK to go to telemetry today
1/3
Hemoglobin remains stable
2. Septic arthritis of right knee/thigh space - s/p ortho procedure. Knee aspirate growing group G strep
Right knee with effusion and severe pain
Complicated by Purulent cellulitis of the RLE
-Was started on IV vancomycin for presumed cellulitis of the right lower extremity
-Recently had right knee injury; has had worsening pain here; elevated inflammatory markers
-Currently with leukocytosis; MRI showed effusion of the right knee
-S/p arthrocentesis, culture sent and growing GGS.
Cultures show: MRSA, ESBL e-coli, Group G Strep
ID consulted for help with antibiotics
Cont ceftriaxone
-Antibiotics per ID.
-Trend CBC, temperature curve,
-Follow cultures from arthrocentesis
-Ortho following s/p procedure
-PT and recovery plan per ortho
06/15
Narrow to Rocephin.
Patient will need rehab after discharge and 6 weeks of IV antibiotic.
Physiatry consult.
06/16
Noted left lower extremity swelling.
ultrasound lower extremities: unremarkable
Recommend 6 weeks if IV ceftriaxone through 07/20/24 with weekly CRP, CBC, CMP
3. Morbid obesity s/p gastric bypass -BMI 40, affects all aspects of care. He had been 600+ Lbs and successfully lost 400Lbs after gastric bypass.
He feels this is his ideal weight, given his history, However, it may be best to be closer to a BMI of 30 than 40.
-He states he knows how to lose weight.
-Outpatient follow up with his PCP
-May benefit at some point from excess skin removal surgery
4. Paroxysmal AF s/p ablation -No longer on anticoagulants nor rate/rhythm controlling agents
-Heart rate WNL here
-No active plan needed at this time
5. H/O CVA s/p tPA
-Likely related to previous AF history
-No residual deficits
6. Low Ca. Corrects to normal calcium (has low albumin)
-artifact of lab measurement.
DVT prophylaxis: SCD
Diet: Regular
CODE STATUS: Full code
Anticipated Discharge: > 48 hours
Subjective/Interval History
-
Date of Service: June 17, 2024
no acute events
Objective Data
-
Labs:
Laboratory Results
06/17/24
07:17
WBC 9.9
Hgb 7.8 L
Hct 26.8 L
Plt Count 175
Vital Signs:
Vital Signs
Temp Pulse Resp BP Pulse Ox
98.9 F 89 16 126/84 98
06/17/24 13:09 06/17/24 13:09 06/17/24 13:09 06/17/24 13:09 06/17/24 13:09
I&O
06/16/24 06/17/24 06/18/24
06:59 06:59 06:59
Intake Total 1860 / 1860 2159
Output Total 587 / 587
Balance 1273 / 1273 2159
Review of Systems
-
History Source: Patient
All other systems: Not reviewed unless documented
Physical Exam
-
General: Well Developed, Well Nourished, No Apparent Distress and Comfortable
HEENT: Normocephalic, Atraumatic, Moist Mucous Membranes, No Ptosis, PERRLA and Nose Appears Normal
Respiratory: Rales and Non Labored Respirations
Cardiac: Regular Rhythm and S1/S2
Breast: Deferred by me
GI: Soft, Nontender, Nondistended and Normal Bowel Sounds
Genito-urinary: No Costovertebral Tender
Musculoskeletal: No Clubbing, No Cyanosis, No Edema and Other (Right knee dressing-left lower extremity +3 edema)
Skin: Warm
Neuro: Awake, Alert, Oriented, AO x 3 and No Motor Deficits
Psych: Calm
Data Reviewed
-
CT Scan: Report Reviewed by me
Ultrasound: Report Reviewed by me
Labs: Labs Reviewed by me
[2024-06-17] MEDS: FERRLECIT 110 MG IV (14:38)
[2024-06-17 15:41] VITALS: BP 137/76
--- NOTE | 2024-06-17 18:28 | PTCARENOTE ---
Addendum entered by Charlotte Epperson RN 06/17/24 18:46:
Pt brought oxy PRN dose for pain at change of shift. Pt. agitated and stating 'this wont do shit, I have oxy 5mg at home I need the stuff that goes right into my blood stream'. RN educated pt on the purpose of PO medication since he will be going
home soon, pt continues to be frustrated. Will update maintenance mechanic 2nd shift RN.
Original Note:
and cross coverage attending messaged about pt potentially drug seeking behaviors. Pt has made several comments when IV dilaudid is being administered and has said that he 'loves the feeling when it goes in' and it makes him 'feel so good'. Pt
also has been keeping track of exactly when he received his last dose and has been asking for his pain medication on the dot after 3 hours. This RN reached out to get meds switched to PO for pain relief due to pt behavior and probable discharge to
rehab within 24 hours. Pt. also has stated that he used to be an alcoholic, notified about pt history and past addictive behaviors. MD to put new orders in.
[2024-06-17] MEDS: ROXICODONE 5 MG PO (18:43)
[2024-06-17 19:30] VITALS: BP 125/83
[2024-06-17] MEDS: FLUSH (NSS) 1 FLUSH IV (20:27)
--- NOTE | 2024-06-17 20:45 | PTCARENOTE ---
Patient upset during change of shift regarding change in pain medication this afternoon. Patient states that the oxycodone is not touching him and expressing how the Dilaudid really did it for him. Patient states 'That other stuff really worked so
well for me, it really took the pain away. I am so scared to try the oxy because it has never done anything good for me in the past. I have been on that before, you know, with all the other surgeries I have had. My hernia. It never helps the pain,
all it does is make me all sweaty, and makes me head feel funny.' Patient has asked multiple times if they could switch the medication back to the Dilaudid for him. Patient also expressing that he is nervous to take too many medications, especially
narcotics since he does not want to get addicted. And that he typically does not take any medications at home, only Tylenol if he needs it. Girlfriend at bedside found this RN in the [facility] and requested I ask if he can be put on hydrocodone instead
because 'A family friend of theirs suggested it, and that it might work better for him.' Notified SUBACUTE NURSE Jurgen Melgoza of patient and significant others requests. She will come up to talk with patient. Will monitor.
[2024-06-17] MEDS: ROXICODONE 10 MG PO (22:38)
[2024-06-17 23:30] VITALS: BP 124/83
[2024-06-18 03:50] VITALS: BP 131/85
--- NOTE | 2024-06-18 05:13 | PTCARENOTE ---
Addendum entered by Rylee Tyson RN 06/18/24 06:17:
Notified RENATO Melgoza of high HRs -- still with intermittent spikes to the 140-150s approx every 5 minutes, patient stable and without complaints. Asymptomatic. Per RENATO, will continue to monitor and discuss with dayshift team.
Original Note:
HR jumping into the 140-150s throughout the evening, patient in deep sleep every time he is assessed, stating that he often goes into deep sleep and has had high HRs in the past during those times. At this time, patient does not c/o pain to right
knee/leg, in fact he states 'I am feeling wonderful right now. A little sore, but no pain. I feel great.' This is following only one PRN dose of 5mg oxy, and one PRN dose 10mg oxy earlier this shift. Asymptomatic, HR back to 70-80s immediately each
time. Will place new leads and monitor patient closely.
[2024-06-18 07:00] VITALS: BP 129/85
[2024-06-18 07:14] LABS: Hematocrit 27.5 % (39.0-52.0); Mean Corp Hgb Conc. 29.1 g/dL (33.0-37.0); Mean Corpuscular Hgb 25.1 pg (27.0-31.0); Mean Corpuscular Volume 86.2 fL (80.0-94.0); Mean Platelet Volume 10.3 fL (7.4-10.4); Platelet Count 158 10^3/uL (130-400); Red Blood Cell Count 3.19 10^6/uL (4.70-6.10); Red Cell Dist. Width 22.6 % (11.5-14.5); White Blood Cell Count 8.3 10^3/uL (4.8-10.8)
[2024-06-18 07:57] LABS: ALT (SGPT) 18 U/L (0-50); AST (SGOT) 24 U/L (17-59); Albumin 2.2 g/dl (3.5-5.0); Alkaline Phosphatase 55 U/L (38-126); Blood Urea Nitrogen 11 mg/dl (9-20); Calcium 7.5 mg/dl (8.4-10.2); Carbon Dioxide 30 mmol/L (22-30); Chloride 101 mmol/L (98-107); Estimated Creatinine Clearance > 125 ml/min; Glucose 85 mg/dl (70-99); Potassium 4.2 mmol/L (3.5-5.1); Sodium 135 mmol/L (135-145); Total Bilirubin 0.4 mg/dl (0.2-1.3); Total Protein 5.5 g/dl (6.3-8.2); eGFR > 60.00
[2024-06-18] MEDS: ROXICODONE 10 MG PO ×4 (08:00→22:31)
--- NOTE | 2024-06-18 09:39 | W.PN.ORTHO ---
Today's Communication / Plan
-
PT/OT
Weight bearing as tolerated. Range of motion as tolerated
Walker/crutches for assistance during weightbearing
DVT ppx- per primary in setting of GI bleed; venous foot pumps or SCDs at minimum, early ambulation
Ice with elevation to control swelling and pain
OR cultures with group G strep. Antibiotics per ID, currently ceftriaxone
Nursing may change dressing as needed
Ultrasound bilateral lower extremities negative for DVT
Orthopedics to continue to follow
Assessment
.
Distal Motor Intact: Yes
Dressing:
Clean, dry and intact.
Plan
.
Surgery / Date: 06/13/[address] Escoto
Activity:
Out of bed.
PT/OT
Subjective
.
.:
Patient resting comfortably in bed this morning. He reports that he worked on calf stretching yesterday and that he is feeling a little better this morning.
Vital Signs and Labs
.
Vital Signs and Labs:
Lab Results
06/18/24 06:35
06/18/24 06:35
Temp Pulse Resp BP Pulse Ox
98 F 78 16 129/85 94
06/18/24 07:00 06/18/24 07:00 06/18/24 07:00 06/18/24 07:00 06/18/24 07:00
PT 15.5 Sec (11.4-14.6) H 06/07/24 20:34
INR 1.18 06/07/24 20:34
Physical Exam
-
dressing CDI- mild swelling of right leg, some loss of wrinkles of skin- comparable to other side in terms of edema; NVI L3-S1. No palpable cords or masses
[2024-06-18] MEDS: NSS (PRESERVATIVE FREE) 10 ML IV ×2 (09:51→20:16)
[2024-06-18] MEDS: PROTONIX IV 40 MG IV ×2 (09:52→20:16)
[2024-06-18] MEDS: ROCEPHIN 2000 MG IV (09:52)
[2024-06-18] MEDS: STERILE WATER FOR INJECTION 20 ML IV (09:52)
[2024-06-18 11:00] VITALS: BP 134/93
--- NOTE | 2024-06-18 14:01 | W.PN.HOSP.TC ---
Today's Communication/Plan
-
cont iv abx
minimal ambulation
pending cm work on dc
Assessment / Plan
Assessment / Plan
44 man with knee pain and GI bleeding.
1. Acute GI bleed of gastrojejunal anastomoses - resolving, s/p second EGD procedure, H/H much improved, now 8.8/29.7.
Acute blood loss anemia
H/O gastric bypass
-S/p EGD that showed deep cratered ulcer at GJ anastomosis, s/p endoscopic epinephrine injection
Went back to endoscopy suite on 06/12/24
Ulcer sprayed with clotting material
trend H/H
-Status post 6 units of PRBC; hemoglobin stable at 7.4 x 2; currently on PPI BID
-Had been transitioned from clear liquids to full liquid diet by GI team. Diet to be advanced per GI.
-GI following
-Has remained hemodynamically stable
-Continue to trend CBC
-Continue to advance diet as GI seems appropriate
-Continue PPI, absolute avoidance of NSAIDs and steroids now and after discharge
-Oral PPi at discharge
2. Septic arthritis of right knee/thigh space - s/p ortho procedure. Knee aspirate growing group G strep
Right knee with effusion and severe pain
Complicated by Purulent cellulitis of the RLE
-Was started on IV vancomycin for presumed cellulitis of the right lower extremity
-Recently had right knee injury; has had worsening pain here; elevated inflammatory markers
-Currently with leukocytosis; MRI showed effusion of the right knee
-S/p arthrocentesis, culture sent and growing GGS.
Cultures show: MRSA, ESBL e-coli, Group G Strep
ID consulted for help with antibiotics
Recommend 6 weeks if IV ceftriaxone through 07/20/24 with weekly CRP, CBC, CMP
Unfortunately, pt's insurance does not cover home IV abx.
If DC home and unable to receive IV abx at [facility], transition to second-line tx - cephalexin 1000 mg po q6h through 07/20/2024.
-Ortho following s/p procedure
-PT and recovery plan per ortho
-patient with minimal ambulation currently
3. Morbid obesity s/p gastric bypass -BMI 40, affects all aspects of care. He had been 600+ Lbs and successfully lost 400Lbs after gastric bypass.
He feels this is his ideal weight, given his history, However, it may be best to be closer to a BMI of 30 than 40.
-He states he knows how to lose weight.
-Outpatient follow up with his PCP
-May benefit at some point from excess skin removal surgery
4. Paroxysmal AF s/p ablation -No longer on anticoagulants nor rate/rhythm controlling agents
-Heart rate WNL here
-No active plan needed at this time
5. H/O CVA s/p tPA
-Likely related to previous AF history
-No residual deficits
6. Low Ca. Corrects to normal calcium (has low albumin)
-artifact of lab measurement.
DVT prophylaxis: SCD
Diet: Regular
CODE STATUS: Full code
Anticipated Discharge: > 48 hours
Subjective/Interval History
-
Date of Service: June 18, 2024
No acute vents overnight
Objective Data
-
Labs:
Laboratory Results
06/18/24
06:35
WBC 8.3
Hgb 8.0 L
Hct 27.5 L
Plt Count 158
Sodium 135
Potassium 4.2
Chloride 101
Carbon Dioxide 30
BUN 11
Creatinine 0.6 L
Glucose 85
Calcium 7.5 L
Total Bilirubin 0.4
AST 24
ALT 18
Alkaline Phosphatase 55
Vital Signs:
Vital Signs
Temp Pulse Resp BP Pulse Ox
97.9 F 100 18 134/93 97
06/18/24 11:00 06/18/24 11:00 06/18/24 11:00 06/18/24 11:00 06/18/24 11:00
I&O
06/17/24 06/18/24 06/19/24
06:59 06:59 06:59
Intake Total 2160 / 2160 1220 / 1220
Balance 2160 / 2160 1220 / 1220
Review of Systems
-
History Source: Patient
All other systems: Not reviewed unless documented
Physical Exam
-
General: Well Developed, Well Nourished, No Apparent Distress and Comfortable
HEENT: Normocephalic, Atraumatic, Moist Mucous Membranes, No Ptosis, PERRLA and Nose Appears Normal
Respiratory: Rales and Non Labored Respirations
Cardiac: Regular Rhythm and S1/S2
Breast: Deferred by me
GI: Soft, Nontender, Nondistended and Normal Bowel Sounds
Genito-urinary: No Costovertebral Tender
Musculoskeletal: No Clubbing, No Cyanosis, No Edema and Other (Right knee dressing-left lower extremity +3 edema)
Skin: Warm
Neuro: Awake, Alert, Oriented, AO x 3 and No Motor Deficits
Psych: Calm
Data Reviewed
-
CT Scan: Report Reviewed by me
Ultrasound: Report Reviewed by me
Labs: Labs Reviewed by me
[2024-06-18 15:00] VITALS: BP 138/87
[2024-06-18] MEDS: FERRLECIT 110 MG IV (15:08)
[2024-06-18 19:39] VITALS: BP 128/89
[2024-06-18 22:26] VITALS: BP 112/77
[2024-06-19 03:14] VITALS: BP 123/78
[2024-06-19] MEDS: ROXICODONE 10 MG PO ×4 (05:23→20:34)
[2024-06-19 07:10] VITALS: BP 116/78
[2024-06-19 07:46] LABS: Hematocrit 26.3 % (39.0-52.0); Hemoglobin 7.7 g/dL (13.0-18.0); Mean Corp Hgb Conc. 29.3 g/dL (33.0-37.0); Mean Corpuscular Hgb 25.2 pg (27.0-31.0); Mean Corpuscular Volume 85.9 fL (80.0-94.0); Mean Platelet Volume 10.6 fL (7.4-10.4); Platelet Count 166 10^3/uL (130-400); Red Blood Cell Count 3.06 10^6/uL (4.70-6.10); Red Cell Dist. Width 22.6 % (11.5-14.5); White Blood Cell Count 7.5 10^3/uL (4.8-10.8)
[2024-06-19 07:56] LABS: ALT (SGPT) 17 U/L (0-50); AST (SGOT) 19 U/L (17-59); Albumin 2.2 g/dl (3.5-5.0); Alkaline Phosphatase 60 U/L (38-126); Blood Urea Nitrogen 10 mg/dl (9-20); Calcium 7.5 mg/dl (8.4-10.2); Carbon Dioxide 31 mmol/L (22-30); Chloride 101 mmol/L (98-107); Estimated Creatinine Clearance > 125 ml/min; Glucose 83 mg/dl (70-99); Potassium 4.4 mmol/L (3.5-5.1); Sodium 135 mmol/L (135-145); Total Bilirubin 0.4 mg/dl (0.2-1.3); Total Protein 5.4 g/dl (6.3-8.2); eGFR > 60.00
--- NOTE | 2024-06-19 09:06 | W.PN.UPDATE ---
Update Note
Progress Note Update
POD#6 right medial thigh I&D and right knee arthroscopic I&D
Appreciate the primary team, continue Tx
Dopplers negative for DVT
PT/OT, WBAT. ROM as tolerated
Walker/crutches for assistance during weightbearing
DVT ppx- per primary in setting of GI bleed; venous foot pumps or SCDs at minimum, early ambulation
Ice with elevation to control swelling and pain
OR cultures with group G strep. Antibiotics per ID, currently ceftriaxone
Nursing may change dressing as needed
Orthopedics to continue to follow. Outpatient follow-up for staple/suture removal 8-10 days
[2024-06-19] MEDS: ROCEPHIN 2000 MG IV (09:12)
[2024-06-19] MEDS: STERILE WATER FOR INJECTION 20 ML IV (09:12)
[2024-06-19] MEDS: NSS (PRESERVATIVE FREE) 10 ML IV ×2 (09:13→20:34)
[2024-06-19] MEDS: PROTONIX IV 40 MG IV ×2 (09:13→20:34)
[2024-06-19 11:22] LABS: Anisocytosis 1+; Hypochromasia 1+; Microcytosis 1+; Normal RBC Morphology No
[2024-06-19 11:30] VITALS: BP 133/79
--- NOTE | 2024-06-19 13:34 | W.PN.ID1 ---
Date of Service
Date of Service: June 19, 2024
Today's Communication
- Continue ceftriaxone for now.
- If DC home and unable to receive IV abx at [facility], transition to second-line tx - cephalexin 1000 mg po q6h through 07/20/2024.
Assessment / Plan
# Septic right knee
# Right medial thigh abscess
- 06/13/2024 s/p I+D of thigh abscess and washout of right knee
- OR cultures from knee and abscess: Group G streptococcus
- Right knee aspiration Group G strep
- Recommend 6 weeks if IV ceftriaxone through 07/20/24 with weekly CRP, CBC, CMP
Unfortunately, pt's insurance does not cover home IV abx.
Outpatient Infusion Department for daily IV abx is an alternative option, BUT patient does not have transportation to get there. 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
- PT recommends acute rehab. [facility] denied him due to insurance coverage.
- Continue ceftriaxone for now.
- If DC home and unable to receive IV abx at [facility], transition to second-line tx - cephalexin 1000 mg po q6h through 07/20/2024.
# Right calf laceration wound
- Wound healing without infection or cellulitis
- Wound colonized with MRSA, ESBL-E. coli, Group G strep.
# Fever resolved
# Leukocytosis resolving
# s/p GIB/blood loss anemia from NSAIDs
Chief Complaint
-: Other (septic knee)
Subjective / Review of Systems
Knee pain stable
Vital Signs / Physical Exam
Vital Signs
Vital Signs
Temp Pulse Resp BP Pulse Ox
97.9 F 91 18 133/79 99
06/19/24 11:30 06/19/24 11:30 06/19/24 11:30 06/19/24 11:30 06/19/24 11:30
Physical Exam
Constitutional: No Acute Distress and Comfortable
Cardiovascular: Regular Rate and S1/S2
Pulmonary: Clear
Gastrointestinal: Soft, Non Tender and Non Distended
Neurological: AO x 3
Objective Data
Lab Data
Lab Results
06/19/24 06:39
06/19/24 06:39
ESR 66 mm/hour (0-20) H 06/12/24 05:44
PT 15.5 Sec (11.4-14.6) H 06/07/24 20:34
INR 1.18 06/07/24 20:34
APTT 30.8 Sec (23.4-35.0) 06/07/24 20:34
Estimated Creat Clear > 125 ml/min 06/19/24 06:39
Lactic Acid 1.2 mmol/L (0.7-2.0) 06/07/24 22:07
Total Bilirubin 0.4 mg/dl (0.2-1.3) 06/19/24 06:39
AST 19 U/L (17-59) 06/19/24 06:39
ALT 17 U/L (0-50) 06/19/24 06:39
Alkaline Phosphatase 60 U/L (38-126) 06/19/24 06:39
C-Reactive Protein 78.60 mg/L (0.0-10.00) H 06/12/24 05:44
Most recent labs reviewed.
Micro Results:
06/13/24 17:15 Wound Culture - Final
Leg - Right Group G Streptococcus
Gram Stain - Final
06/13/24 16:45 Wound Culture - Final
Knee - Right Group G Streptococcus
Gram Stain - Final
06/13/24 16:45 Anaerobic Culture - Final
Knee - Right NO ANAEROBES ISOLATED
06/13/24 17:15 Anaerobic Culture - Final
Leg - Right NO ANAEROBES ISOLATED
06/10/24 15:23 Wound Culture - Final
Knee - Right Group G Streptococcus
Gram Stain - Final
06/07/24 21:47 Wound Culture - Final
Leg - Right Staph aureus MRSA
Escherichia coli - ESBL
Group G Streptococcus
Gram Stain - Final
06/08/24 06:20 MRSA Screen - Final
Nose Staph aureus MRSA
06/07/24 CT a/p: Some high attenuation density associated with prior gastric bypass limiting evaluation without gross findings to suggest active gastric bleeding. Please note, CT has decreased sensitivity for peptic ulcer disease. No findings to
suggest active colonic bleeding. Findings likely representing incidental small bowel transient intussusception.
06/09/24 Right knee XRAY: No osseous injury appreciated.
06/09/24 MRI RLE: Moderate to large suprapatellar joint effusion with thin septae. MRI has not been shown to be highly accurate for determination of septic joint, and arthrocentesis is generally considered the gold standard. As warranted,
consideration for arthrocentesis. No MR findings to suggest osteomyelitis. There is no evidence for fracture or significant bone bruise.
Thickening and increased T2-weighted signal involving the visualized popliteus muscle, most suggestive of muscular strain. Increased T2-weighted signal involving the posterior calf musculature, greatest involving the lateral head of the
gastrocnemius muscle. This finding would also be most suggestive of muscular strain. Of note, inflammatory/infectious myositis is a differential consideration.
There is a focal fluid collection between the lateral head of the gastrocnemius muscle and the posterior margin of the soleus, most likely fluid from muscular strain, although a focal infected fluid collection is also possible.
Mild increased T2-weighted signal involving the fibers of the distal vastus medialis and vastus lateralis, most suggestive of muscular strain.
Increased signal intensity involving the fibers of the ACL suggesting sprain and/or mucoid degeneration.
Fluid collection originating in the gastrocnemius/semimembranosus bursa, and extending superiorly along the anterior margin of the distal semimembranosus.
--- NOTE | 2024-06-19 15:59 | W.PN.HOSP.TC ---
Today's Communication/Plan
-
Ongoin dispo efforts
Assessment / Plan
Assessment / Plan
44 man with knee pain and GI bleeding.
1. Acute GI bleed of gastrojejunal anastomoses - resolving, s/p second EGD procedure, H/H much improved, now 7.7
Acute blood loss anemia
H/O gastric bypass
-S/p EGD that showed deep cratered ulcer at GJ anastomosis, s/p endoscopic epinephrine injection
Went back to endoscopy suite on 06/12/24
Ulcer sprayed with clotting material
trend H/H
-Status post 6 units of PRBC; hemoglobin stable at 7.4 x 2; currently on PPI BID
- Diet to be advanced per GI.
-GI following
-Has remained hemodynamically stable
-Continue PPI, absolute avoidance of NSAIDs and steroids now and after discharge
-Oral PPi at discharge
2. Septic arthritis of right knee/thigh space - s/p ortho procedure. Knee aspirate growing group G strep
Right knee with effusion and severe pain
Complicated by Purulent cellulitis of the RLE
-Was started on IV vancomycin for presumed cellulitis of the right lower extremity
-Recently had right knee injury; has had worsening pain here; elevated inflammatory markers
-Currently with leukocytosis; MRI showed effusion of the right knee
-S/p arthrocentesis, culture sent and growing GGS.
Wound Cultures show: MRSA, ESBL e-coli; Knee fluid cx Group G Strep
ID consulted for help with antibiotics
Recommend 6 weeks if IV ceftriaxone through 07/20/24 with weekly CRP, CBC, CMP
Unfortunately, pt's insurance does not cover home IV abx.
If DC home and unable to receive IV abx at OID, transition to second-line tx - cephalexin 1000 mg po q6h through 07/20/2024.
-Ortho following s/p procedure
-PT and recovery plan per ortho
-patient with minimal ambulation currently
3. Morbid obesity s/p gastric bypass -BMI 40, affects all aspects of care. He had been 600+ Lbs and successfully lost 400Lbs after gastric bypass.
He feels this is his ideal weight, given his history, However, it may be best to be closer to a BMI of 30 than 40.
-He states he knows how to lose weight.
-Outpatient follow up with his PCP
-May benefit at some point from excess skin removal surgery
4. Paroxysmal AF s/p ablation -No longer on anticoagulants nor rate/rhythm controlling agents
-Heart rate WNL here
-No active plan needed at this time
5. H/O CVA s/p tPA
-Likely related to previous AF history
-No residual deficits
6. Low Ca. Corrects to normal calcium (has low albumin)
-artifact of lab measurement.
DVT prophylaxis: SCD
Diet: Regular
CODE STATUS: Full code
Anticipated Discharge: Within 24 hours
Subjective/Interval History
-
Date of Service: June 19, 2024
No improvement with the right knee pain. No further GI bleed.
Objective Data
-
Labs:
Laboratory Results
06/19/24
06:39
WBC 7.5
Hgb 7.7 L
Hct 26.3 L
Plt Count 166
Sodium 135
Potassium 4.4
Chloride 101
Carbon Dioxide 31 H
BUN 10
Creatinine 0.6 L
Glucose 83
Calcium 7.5 L
Total Bilirubin 0.4
AST 19
ALT 17
Alkaline Phosphatase 60
Vital Signs:
Vital Signs
Temp Pulse Resp BP Pulse Ox
97.9 F 91 18 133/79 99
06/19/24 11:30 06/19/24 11:30 06/19/24 11:30 06/19/24 11:30 06/19/24 11:30
I&O
06/18/24 06/19/24 06/20/24
06:59 06:59 06:59
Intake Total 1220 / 1220 1920 / 1920 480 / 480
Output Total 600 / 600 200 / 200
Balance 1220 / 1220 1320 / 1320 280 / 280
Review of Systems
-
Respiratory: Denies Trouble Breathing
Cardiac: Denies Chest Pain or Palpitations
Abdomen/GI: Denies Abdominal Pain, Nausea or Vomiting
Neuro: Denies Dizzy
Physical Exam
-
General: No Apparent Distress
HEENT: Moist Mucous Membranes
Respiratory: Non Labored Respirations; Negative Accessory Resp Muscle Use
Cardiac: Regular Rhythm and S1/S2
Neuro: AO x 3
Psych: Calm
Data Reviewed
-
Labs: Labs Reviewed by me
--- NOTE | 2024-06-19 16:00 | CON.MD ---
Documented by User: Meme Goodwin PA-C 06/19/24 17:09
Consultation - Medical
-
Referring Provider:Dr. Camargo
Chief Complaint: Right hip and knee pain
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
anticoagulation for stroke) presented to the emergency department with acute episode of rectal bleed. Patient reported a month prior he had a wound in the right lower extremity for which she was being treated at a wound care center. Last week, he
developed injury to the right knee and has been taken Naproxen that improved his symptoms. He developed mild abdominal discomfort followed by johan red blood in the stools. He presented to the ED for symptom of dizziness He underwent endoscopy
and was found to have an acute GI bleed of gastrojejunal anastomosis and deep cratered ulcer. He received multiple blood transfusions and also respirating with clotting material.
He was evaluated by orthopedic and was found to have a septic arthritic right knee and thigh abscess. He Underwent right knee arthroscopic I&D with open I&D of medial knee with packing on 06/13/2024 for septic knee and open drainage of right thigh
abscess. Aspiration growing group B strep, MRSA, ESBL e-coli,. Seen by ID and being treated with IV ceftriaxone through 07/20/2024.
�Past Medical History:�Paroxysmal atrial fibrillation s/p ablation not on anticoagulation, HTN, CVA post tPA without residual deficit, Prior history of GI bleed in the setting of anticoagulation for stroke
Procedure History:�Bowel Resection (Gastric bypass), ORIF right elbow, tonsillectomy, hernia repair, cardiac ablation
Family History:�No pertinent
Social History
Functional Level Premorbidity: Independent for all activities
Current Functional Level: Eating�independent, grooming�set up, toileting�min assist lower extremity self-care�min assist, toilet transfer�min assist, bed mobility�min assist, ambulation-15 feet x 2 reps with rolling walker WBAT right lower
extremity, Transfer-min assist,
Tobacco: Former
Alcohol: Denies
Drug use: Denies
Lives with: Girlfriend
24-hour assistance available:
Number of floors: 3- bedroom on 3rd floor
# steps to enter: 24
# steps to second floor:
Potential First floor set up: no
Driving: License revoked until 2028 due to DUI
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
Allergies:
Allergy/AdvReac Type Severity Reaction Status Date / Time
No Known Allergies Allergy Unverified 06/12/24 08:43
Medications:
Active Current Visit Medication List
Category Date Time Status
0.9% Sodium Chloride [Nss (Preservative Free)] Med 06/13/24 09:00 Active
10 ml IV BID
Acetaminophen [Tylenol] Med 06/08/24 01:51 Active
650 mg PO Q4HPRN PRN
CefTRIAXone [Rocephin] Med 06/15/24 10:00 Active
2,000 mg IV Q24H
Flush (0.9% Sodium Chloride) [Flush (Nss)] Med 06/10/24 15:00 Active
See Dose Instructions IV PER PROTOCOL
Ondansetron Injectable [Zofran] Med 06/08/24 01:51 Active
4 mg IV Q6HPRN PRN
Oxycodone [Roxicodone] Med 06/17/24 18:28 Active
10 mg PO Q4HPRN PRN
Oxycodone [Roxicodone] Med 06/17/24 18:28 Active
5 mg PO Q4HPRN PRN
Pantoprazole [Protonix IV] Med 06/13/24 08:47 Active
40 mg IV BID
Sterile Water [Sterile Water For Injection] Med 06/15/24 10:00 Active
20 ml IV Q24H
Review Of Systems:
All other systems: Negative unless noted
Constitutional: Reports No Symptoms
Eye: Reports No Symptoms
EENT: Reports No Symptoms
Respiratory: Reports No Symptoms
Cardiac: Reports No Symptoms
Abdomen/GI: GI bleed, anemia
: Reports No Symptoms
Musculoskeletal: Abnormal-thigh pain, knee pain, swelling
Integumentary: Reports No Symptoms
Neurological: Reports No Symptoms
Psych: Reports No Symptoms
Endocrine: Reports No Symptoms
Hematologic/Lymphatic: Reports No Symptoms
Immunology: Reports No Symptoms
Vital Signs:
Temp Pulse Resp BP Pulse Ox
97.9 F 78 18 116/78 98
06/19/24 07:10 06/19/24 07:10 06/19/24 07:10 06/19/24 07:10 06/19/24 07:10
Height 5 ft 6 in
Actual Weight 113 kg
Body Mass Index (BMI) 40.2
Physical Exam:
General Appearance/Observation: Well-developed, well-nourished male in no apparent distress
Pain/Comfort Assessment: knee pain
Mood/Affect: appropriate�
Eyes: Conjunctiva/Lids: normal���� Pupils: pupils equal round and reactive to light and Accommodation�
Ears/Nose/Throat: oral mucosa moist,� throat clear.������������ Lips/Teeth/Gums: normal�
Cardiovascular: Heart: regular, no murmur�
Pulses: dorsalis pedis 2+ bilaterally�
Respiratory: Respiratory Effort/Chest Expansion: normal������� Auscultation: Clear to auscultation bilaterally�
Gastrointestinal: abdomen tender, no distension, present abdominal bowel sounds
Genitourinary: No Guzman�
Extremities:�Edema: Right knee with dressing. bilateral LE with significant swelling 3+ L>R and shiny skin, LE �Cyanosis: None�Trophic�changes: None
�
Neurology Exam:
Orientation: Alert, Oriented to self, Time, Place�
Comprehension: Intact
Two step command: Intact
Cranial Nerves: Intact and symmetric
Sensory:
�� Light touch: Intact in bilateral upper and lower extremities
Musculoskeletal: Motor: (Manual muscle scale 0-5)�
Muscle SA EF WE EE FF FA HF KE DF EHL PF
Right� 5 5 5 5 5 5 2 2 5 5 5
Left 5 5 5 5 5 5 4- 4- 5 5 5
�
Tone: Normal in all extremities�
Range of Motion: Passively within normal limits in all extremities - Right hip not tested
Lab Results:
Labs
WBC 7.5 10^3/uL (4.8-10.8) 06/19/24 06:39
RBC 3.06 10^6/uL (4.70-6.10) L 06/19/24 06:39
Hgb 7.7 g/dL (13.0-18.0) L 06/19/24 06:39
Hct 26.3 % (39.0-52.0) L 06/19/24 06:39
MCV 85.9 fL (80.0-94.0) 06/19/24 06:39
MCH 25.2 pg (27.0-31.0) L 06/19/24 06:39
MCHC 29.3 g/dL (33.0-37.0) L 06/19/24 06:39
RDW 22.6 % (11.5-14.5) H 06/19/24 06:39
Plt Count 166 10^3/uL (130-400) 06/19/24 06:39
MPV 10.6 fL (7.4-10.4) H 06/19/24 06:39
Abs Immat Gran (auto) 0.5 10^3/uL (0-0.05) H 06/12/24 05:44
Absolute Neuts (auto) 10.3 10^3/uL (1.4-6.5) H 06/12/24 05:44
Absolute Lymphs (auto) 1.6 10^3/uL (1.2-3.4) 06/12/24 05:44
Absolute Monos (auto) 0.8 10^3/uL (0.1-0.6) H 06/12/24 05:44
Absolute Eos (auto) 0.2 10^3/uL (0-0.7) 06/12/24 05:44
Absolute Basos (auto) 0.1 10^3/uL (0-0.2) 06/12/24 05:44
CBC Comment Cancelled 06/11/24 20:00
Immature Gran % 4.0 % (0-0.5) H 06/12/24 05:44
Neutrophils % 76.9 % (42.2-75.2) H 06/12/24 05:44
Lymphocytes % 11.7 % (20.5-51.1) L 06/12/24 05:44
Monocytes % 5.6 % (1.7-9.3) 06/12/24 05:44
Eosinophils % 1.1 % (0-6) 06/12/24 05:44
Basophils % 0.7 % (0-2) 06/12/24 05:44
Nucleated RBC % 0.2 % (-) 06/12/24 05:44
ESR 66 mm/hour (0-20) H 06/12/24 05:44
PT 15.5 Sec (11.4-14.6) H 06/07/24 20:34
INR 1.18 06/07/24 20:34
APTT 30.8 Sec (23.4-35.0) 06/07/24 20:34
Sodium 135 mmol/L (135-145) 06/19/24 06:39
Potassium 4.4 mmol/L (3.5-5.1) 06/19/24 06:39
Chloride 101 mmol/L (98-107) 06/19/24 06:39
Carbon Dioxide 31 mmol/L (22-30) H 06/19/24 06:39
BUN 10 mg/dl (9-20) 06/19/24 06:39
Creatinine 0.6 mg/dL (0.7-1.3) L 06/19/24 06:39
Estimated Creat Clear > 125 ml/min 06/19/24 06:39
eGFR > 60.00 06/19/24 06:39
Glucose 83 mg/dl (70-99) 06/19/24 06:39
Lactic Acid 1.2 mmol/L (0.7-2.0) 06/07/24 22:07
Calcium 7.5 mg/dl (8.4-10.2) L 06/19/24 06:39
Magnesium 2.5 mg/dl (1.6-2.3) H 06/08/24 06:19
Iron 31 ug/dl (49-181) L 06/08/24 06:19
TIBC 200 ug/dl (261-462) L 06/08/24 06:19
% Saturation 15 % (20-50) L 06/08/24 06:19
Total Bilirubin 0.4 mg/dl (0.2-1.3) 06/19/24 06:39
AST 19 U/L (17-59) 06/19/24 06:39
ALT 17 U/L (0-50) 06/19/24 06:39
Alkaline Phosphatase 60 U/L (38-126) 06/19/24 06:39
C-Reactive Protein 78.60 mg/L (0.0-10.00) H 06/12/24 05:44
Total Protein 5.4 g/dl (6.3-8.2) L 06/19/24 06:39
Albumin 2.2 g/dl (3.5-5.0) L 06/19/24 06:39
Vancomycin Peak 21.8 ug/ml (18-26) 06/12/24 22:47
Vancomycin Trough 12.2 ug/ml (5-20) 06/13/24 05:26
Blood Type A NEG 06/11/24 10:28
Antibody Screen Negative (Negative) 06/11/24 10:28
Crossmatch IS Only See Detail 06/11/24 10:28
Diagnostic Results
As per HPI.
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
found to have septic right knee and acute GI bleed.
�
Plan�
PT/OT to increase independence with ADLs, improve balance, coordination, endurance, strength, mobility, community reintegration, decreased burden of care on others and family education.�
�
Acute GI bleed of gastrojejunal anastomoses - H/o gastric bypass. resolving, s/p second EGD on 06/12/24 showed deep cratered ulcer at GJ anastomosis treated with epinephrine injection, Ulcer sprayed with clotting material. Hgb now at 7.7 on 06/19
Septic right knee/Right medial thigh abscess
- 06/13/2024 s/p I+D of thigh abscess and washout of right knee
- OR cultures from knee aspiration and abscess: Group G streptococcus,MRSA
- ID recommends 6 weeks IV ceftriaxone through 07/20/24 with weekly CRP, CBC, CMP
pt's insurance does not cover home IV abx. If unable to receive IV abx at OID, transition to [id number] mg po q6h through 07/20/2024.
Monitor incision, pain control. Weight bearing as tolerated with walker/crutches.
Range of motion as tolerated. Ice with elevation to control swelling and pain.
Ultrasound bilateral lower extremities negative for DVT.�
H/O CVA s/p tPA. Likely related to previous AF history. No residual deficits
Paroxysmal Atrial fibrillation:�s/p ablation -No longer on anticoagulants nor rate/rhythm controlling agents
Acute blood loss anemia: S/p 6 units of PRBC;
Skin/ lower extremities edema: monitor for pressure sores/rashes/lesions.�
Pain: acetaminophen, tramadol, oxycodone as needed.�
Bladder: Time void, PVRs, PRN straight cath.�
GI Prophylaxis: Pantoprazole 40mg IV bid. Absolute avoidance of NSAIDs and steroids now and after discharge
DVT Prophylaxis: in setting of GI bleed, venous foot pumps or SCDs at minimum, early ambulation
Pulmonary: Incentive spirometry�
Morbid obesity s/p gastric bypass -BMI 40, affects all aspects of care. He had been 600+ Lbs and lost 400Lbs after gastric bypass.
Safety: Continue to reinforce assistance with all transfers.�
Code Status:� Full code
Dispo�(date/plan/equipment needs): Home with family care.� Social history reviewed.
Functional and Medical Goals: Modified Independent with ADL�s, ambulation, transfers
Discharge Destination: Recommend SNF for medical management and PT/OT if able.
Summary of recommendations: Patient states that he will be going home on antibiotics and not SNF.
Acute GI bleed of gastrojejunal anastomoses - H/o gastric bypass. resolving, s/p second EGD on 06/12/24 showed deep cratered ulcer at GJ anastomosis treated with epinephrine injection, Ulcer sprayed with clotting material. Hgb now at 7.7 on 06/19
Septic right knee/Right medial thigh abscess
- 06/13/2024 s/p I+D of thigh abscess and washout of right knee
- OR cultures from knee aspiration and abscess: Group G streptococcus,MRSA
- ID recommends 6 weeks IV ceftriaxone through 07/20/24 with weekly CRP, CBC, CMP
pt's insurance does not cover home IV abx. If unable to receive IV abx at OID, transition to [id number] mg po q6h through 07/20/2024.
Monitor incision, pain control. Weight bearing as tolerated with walker/crutches.
Range of motion as tolerated. Ice with elevation to control swelling and pain.
Ultrasound bilateral lower extremities negative for DVT.�
Pain: acetaminophen, tramadol, oxycodone as needed.�
Bladder: Time void, PVRs, PRN straight cath.�
DVT Prophylaxis: in setting of GI bleed, venous foot pumps or SCDs at minimum, early ambulation
Thank you for allowing me to care for your patient. Please contact me with any questions or concerns.

Documented by User: Konstantin Kaye MD 06/20/24 11:26
Consultation - Medical
-
Referring Provider:Dr. Camargo
Chief Complaint: Right hip and knee pain
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
anticoagulation for stroke) presented to the emergency department with acute episode of rectal bleed. Patient reported a month prior he had a wound in the right lower extremity for which she was being treated at a wound care center. Last week, he
developed injury to the right knee and has been taken Naproxen that improved his symptoms. He developed mild abdominal discomfort followed by johan red blood in the stools. He presented to the ED for symptom of dizziness He underwent endoscopy
and was found to have an acute GI bleed of gastrojejunal anastomosis and deep cratered ulcer. He received multiple blood transfusions and also respirating with clotting material.
He was evaluated by orthopedic and was found to have a septic arthritic right knee and thigh abscess. He Underwent right knee arthroscopic I&D with open I&D of medial knee with packing on 06/13/2024 for septic knee and open drainage of right thigh
abscess. Aspiration growing group B strep, MRSA, ESBL e-coli,. Seen by ID and being treated with IV ceftriaxone through 07/20/2024.
Past Medical History:�Paroxysmal atrial fibrillation s/p ablation not on anticoagulation, HTN, CVA post tPA without residual deficit, Prior history of GI bleed in the setting of anticoagulation for stroke, right rotator cuff tear in May
Procedure History:�Bowel Resection (Gastric bypass), ORIF right elbow, tonsillectomy, hernia repair, cardiac ablation
Family History:�No pertinent
Social History
Functional Level Premorbidity: Independent for all activities
Current Functional Level: Eating�independent, grooming�set up, toileting�min assist lower extremity self-care�min assist, toilet transfer�min assist, bed mobility�min assist, ambulation-15 feet x 2 reps with rolling walker WBAT right lower
extremity, Transfer-min assist,
Tobacco: Former
Alcohol: Denies
Drug use: Denies
Lives with: Girlfriend
Number of floors: 3- bedroom on 3rd floor
# steps to enter: 24
Potential First floor set up: no
Driving: License revoked until 2028 due to DUI
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
Allergies:
Allergy/AdvReac Type Severity Reaction Status Date / Time
No Known Allergies Allergy Unverified 06/12/24 08:43
Medications:
Active Current Visit Medication List
Category Date Time Status
0.9% Sodium Chloride [Nss (Preservative Free)] Med 06/13/24 09:00 Active
10 ml IV BID
Acetaminophen [Tylenol] Med 06/08/24 01:51 Active
650 mg PO Q4HPRN PRN
CefTRIAXone [Rocephin] Med 06/15/24 10:00 Active
2,000 mg IV Q24H
Flush (0.9% Sodium Chloride) [Flush (Nss)] Med 06/10/24 15:00 Active
See Dose Instructions IV PER PROTOCOL
Ondansetron Injectable [Zofran] Med 06/08/24 01:51 Active
4 mg IV Q6HPRN PRN
Oxycodone [Roxicodone] Med 06/17/24 18:28 Active
10 mg PO Q4HPRN PRN
Oxycodone [Roxicodone] Med 06/17/24 18:28 Active
5 mg PO Q4HPRN PRN
Pantoprazole [Protonix IV] Med 06/13/24 08:47 Active
40 mg IV BID
Sterile Water [Sterile Water For Injection] Med 06/15/24 10:00 Active
20 ml IV Q24H
Review Of Systems:
Constitutional: Reports No Symptoms
Eye: Reports No Symptoms
EENT: Reports No Symptoms
Respiratory: Reports No Symptoms
Cardiac: Reports No Symptoms
Abdomen/GI: GI bleed, anemia
: Reports No Symptoms
Musculoskeletal: Abnormal-thigh pain, knee pain, swelling
Integumentary: Reports No Symptoms
Neurological: Reports No Symptoms
Psych: Reports No Symptoms
Endocrine: Reports No Symptoms
Hematologic/Lymphatic: Reports No Symptoms
Immunology: Reports No Symptoms
Vital Signs:
Temp Pulse Resp BP Pulse Ox
97.9 F 78 18 116/78 98
06/19/24 07:10 06/19/24 07:10 06/19/24 07:10 06/19/24 07:10 06/19/24 07:10
Height 5 ft 6 in
Actual Weight 113 kg
Body Mass Index (BMI) 40.2
Physical Exam:
General Appearance/Observation: Well-developed, well-nourished male in no apparent distress
Pain/Comfort Assessment: Right knee pain
Mood/Affect: appropriate�
Eyes: Conjunctiva/Lids: normal���� Pupils: pupils equal round and reactive to light
Ears/Nose/Throat: oral mucosa moist,� throat clear.������������ Lips/Teeth/Gums: normal�
Cardiovascular: Heart: regular, no murmur�
Pulses: dorsalis pedis 2+ bilaterally�
Respiratory: Respiratory Effort/Chest Expansion: normal������� Auscultation: Clear to auscultation bilaterally�
Gastrointestinal: abdomen tender, no distension, present abdominal bowel sounds
Genitourinary: No Guzman�
Extremities:�Edema: Right knee with dressing and Fredy wrap. bilateral LE with significant swelling 3+ L>R and shiny skin, LE �Cyanosis: None�Trophic�changes: Present left lower extremity, right not evaluated as it is rakes wrapped
�
Neurology Exam:
Orientation: Alert, Oriented to self, Time, Place�
Comprehension: Intact
Two step command: Intact
Cranial Nerves: Intact and symmetric
Sensory:
�� Light touch: Intact in bilateral upper and lower extremities
Musculoskeletal: Motor: (Manual muscle scale 0-5)�
Muscle SA EF WE EE FF FA HF KE DF EHL PF
Right� 2* 5 5 5 2 2+ 5 5
Left 5 5 5 5 3+ 5 5 5
�*Limited range of motion to approximately 90 degrees with significant pain limiting further movement against gravity.
Tone: Normal in all extremities�
Range of Motion: Right shoulder limited with pain in abduction and flexion to about 90 degrees. Right hip not tested, not able to fully extend the right knee, can bend it back to approximately 90 degrees of flexion, limited by pain.
Lab Results:
Labs
WBC 7.5 10^3/uL (4.8-10.8) 06/19/24 06:39
RBC 3.06 10^6/uL (4.70-6.10) L 06/19/24 06:39
Hgb 7.7 g/dL (13.0-18.0) L 06/19/24 06:39
Hct 26.3 % (39.0-52.0) L 06/19/24 06:39
MCV 85.9 fL (80.0-94.0) 06/19/24 06:39
MCH 25.2 pg (27.0-31.0) L 06/19/24 06:39
MCHC 29.3 g/dL (33.0-37.0) L 06/19/24 06:39
RDW 22.6 % (11.5-14.5) H 06/19/24 06:39
Plt Count 166 10^3/uL (130-400) 06/19/24 06:39
MPV 10.6 fL (7.4-10.4) H 06/19/24 06:39
Abs Immat Gran (auto) 0.5 10^3/uL (0-0.05) H 06/12/24 05:44
Absolute Neuts (auto) 10.3 10^3/uL (1.4-6.5) H 06/12/24 05:44
Absolute Lymphs (auto) 1.6 10^3/uL (1.2-3.4) 06/12/24 05:44
Absolute Monos (auto) 0.8 10^3/uL (0.1-0.6) H 06/12/24 05:44
Absolute Eos (auto) 0.2 10^3/uL (0-0.7) 06/12/24 05:44
Absolute Basos (auto) 0.1 10^3/uL (0-0.2) 06/12/24 05:44
CBC Comment Cancelled 06/11/24 20:00
Immature Gran % 4.0 % (0-0.5) H 06/12/24 05:44
Neutrophils % 76.9 % (42.2-75.2) H 06/12/24 05:44
Lymphocytes % 11.7 % (20.5-51.1) L 06/12/24 05:44
Monocytes % 5.6 % (1.7-9.3) 06/12/24 05:44
Eosinophils % 1.1 % (0-6) 06/12/24 05:44
Basophils % 0.7 % (0-2) 06/12/24 05:44
Nucleated RBC % 0.2 % (-) 06/12/24 05:44
ESR 66 mm/hour (0-20) H 06/12/24 05:44
PT 15.5 Sec (11.4-14.6) H 06/07/24 20:34
INR 1.18 06/07/24 20:34
APTT 30.8 Sec (23.4-35.0) 06/07/24 20:34
Sodium 135 mmol/L (135-145) 06/19/24 06:39
Potassium 4.4 mmol/L (3.5-5.1) 06/19/24 06:39
Chloride 101 mmol/L (98-107) 06/19/24 06:39
Carbon Dioxide 31 mmol/L (22-30) H 06/19/24 06:39
BUN 10 mg/dl (9-20) 06/19/24 06:39
Creatinine 0.6 mg/dL (0.7-1.3) L 06/19/24 06:39
Estimated Creat Clear > 125 ml/min 06/19/24 06:39
eGFR > 60.00 06/19/24 06:39
Glucose 83 mg/dl (70-99) 06/19/24 06:39
Lactic Acid 1.2 mmol/L (0.7-2.0) 06/07/24 22:07
Calcium 7.5 mg/dl (8.4-10.2) L 06/19/24 06:39
Magnesium 2.5 mg/dl (1.6-2.3) H 06/08/24 06:19
Iron 31 ug/dl (49-181) L 06/08/24 06:19
TIBC 200 ug/dl (261-462) L 06/08/24 06:19
% Saturation 15 % (20-50) L 06/08/24 06:19
Total Bilirubin 0.4 mg/dl (0.2-1.3) 06/19/24 06:39
AST 19 U/L (17-59) 06/19/24 06:39
ALT 17 U/L (0-50) 06/19/24 06:39
Alkaline Phosphatase 60 U/L (38-126) 06/19/24 06:39
C-Reactive Protein 78.60 mg/L (0.0-10.00) H 06/12/24 05:44
Total Protein 5.4 g/dl (6.3-8.2) L 06/19/24 06:39
Albumin 2.2 g/dl (3.5-5.0) L 06/19/24 06:39
Vancomycin Peak 21.8 ug/ml (18-26) 06/12/24 22:47
Vancomycin Trough 12.2 ug/ml (5-20) 06/13/24 05:26
Blood Type A NEG 06/11/24 10:28
Antibody Screen Negative (Negative) 06/11/24 10:28
Crossmatch IS Only See Detail 06/11/24 10:28
Diagnostic Results
As per HPI.
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
found to have septic right knee and acute GI bleed.
�
Plan�
PT/OT to increase independence with ADLs, improve balance, coordination, endurance, strength, mobility, community reintegration, decreased burden of care on others and family education.�
�
Acute GI bleed of gastrojejunal anastomoses - H/o gastric bypass. resolving, s/p second EGD on 06/12/24 showed deep cratered ulcer at GJ anastomosis treated with epinephrine injection, Ulcer sprayed with clotting material. Hgb now at 7.7 on 06/19
Septic right knee/Right medial thigh abscess
- 06/13/2024 s/p I+D of thigh abscess and washout of right knee
- OR cultures from knee aspiration and abscess: Group G streptococcus,MRSA
- ID recommends 6 weeks IV ceftriaxone through 07/20/24 with weekly CRP, CBC, CMP
pt's insurance does not cover home IV abx. If unable to receive IV abx at OID, transition to [id number] mg po q6h through 07/20/2024.
Monitor incision, pain control. Weight bearing as tolerated with walker/crutches.
Range of motion as tolerated. Ice with elevation to control swelling and pain.
Ultrasound bilateral lower extremities negative for DVT.�
H/O CVA s/p tPA. Likely related to previous AF history. No residual deficits
Paroxysmal Atrial fibrillation:�s/p ablation -No longer on anticoagulants nor rate/rhythm controlling agents
Acute blood loss anemia: S/p 6 units of PRBC;
Lower extremities edema: monitor for pressure sores/rashes/lesions.� Bilateral lower extremity ultrasound with no DVT bilaterally. Keep legs elevated. May benefit from vascular evaluation and possible lymphedema management. Needs to undo wrapping
a couple times a day on the right leg to prevent pressure injuries from Fredy wraps.
Pain: acetaminophen, tramadol, oxycodone as needed.�
Bladder: Time void, PVRs, PRN straight cath.�
GI Prophylaxis: Pantoprazole 40mg IV bid. Absolute avoidance of NSAIDs and steroids now and after discharge
DVT Prophylaxis: in setting of GI bleed, venous foot pumps or SCDs at minimum, early ambulation
Pulmonary: Incentive spirometry�
Morbid obesity s/p gastric bypass -BMI 40, affects all aspects of care. He had been 600+ Lbs and lost 400Lbs after gastric bypass.
Safety: Continue to reinforce assistance with all transfers.�
Code Status:� Full code
Dispo�(date/plan/equipment needs): Home with family care.� Social history reviewed.
Functional and Medical Goals: Modified Independent with ADL�s, ambulation, transfers
Discharge Destination: Recommend SNF for medical management and PT/OT.
A total of 60 minutes were spent with the patient preparing for the evaluation, obtaining history, performing examination and evaluation, counseling, data review, case management, care coordination, telephone recorder, and EMR documentation.
Attending Statement:
I saw and examined the patient 06/20/24. 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 I agree with the above subjective and physical exam, and plan as documented by STARR Goodwin with adjustments made as necessary.
Summary of recommendations: Patient states that he will be going home on antibiotics and not SNF.
Acute GI bleed of gastrojejunal anastomoses - H/o gastric bypass. resolving, s/p second EGD on 06/12/24 showed deep cratered ulcer at GJ anastomosis treated with epinephrine injection, Ulcer sprayed with clotting material. Hgb now at 7.7 on 06/19
Septic right knee/Right medial thigh abscess
- 06/13/2024 s/p I+D of thigh abscess and washout of right knee - Group G streptococcus,MRSA
- ID recommends 6 weeks IV ceftriaxone through 07/20/24 with weekly CRP, CBC, CMP
pt's insurance does not cover home IV abx. If unable to receive IV abx at OID, transition to cephalexin 1000 mg po q6h through 07/20/2024.
Monitor incision, pain control. Weight bearing as tolerated with walker/crutches.
Range of motion as tolerated. Ice with elevation to control swelling and pain.
DVT Prophylaxis: in setting of GI bleed, venous foot pumps or SCDs at minimum, early ambulation
Lower extremities edema: monitor for pressure sores/rashes/lesions.� Bilateral lower extremity ultrasound with no DVT bilaterally. Keep legs elevated. May benefit from vascular evaluation and possible lymphedema management. Needs to undo wrapping
a couple times a day on the right leg to prevent pressure injuries from Fredy wraps.
Thank you for allowing me to care for your patient. Please contact me with any questions or concerns.
[2024-06-19 16:37] VITALS: BP 138/92
[2024-06-19 19:00] VITALS: BP 144/84
[2024-06-19] MEDS: TYLENOL 650 MG PO (21:01)
[2024-06-19 23:00] VITALS: BP 117/79
[2024-06-20] VITALS (7 sets, daily range): BP systolic 116–146; BP diastolic 72–91; PULSE 89; O2SAT 99
[2024-06-20] MEDS: ROXICODONE 10 MG PO ×5 (01:43→22:40)
--- NOTE | 2024-06-20 06:10 | W.PN.UPDATE ---
Update Note
Progress Note Update
POD#7 right medial thigh I&D and right knee arthroscopic I&D 06/13/[address] Escoto.
Appreciate the primary team, continue Tx.
PT/OT, WBAT. ROM as tolerated.
Walker/crutches for assistance during weightbearing.
DVT ppx- per primary in setting of GI bleed; venous foot pumps or SCDs at minimum, early ambulation.
Ice with elevation to control swelling and pain.
OR cultures with group G strep. Antibiotics per ID, currently Ceftriaxone.
Nursing may change dressing as needed.
Orthopedics to continue to follow. Outpatient follow-up for staple/suture removal 7-9 days.
[2024-06-20 07:21] LABS: Hemoglobin 7.9 g/dL (13.0-18.0); Mean Corp Hgb Conc. 29.3 g/dL (33.0-37.0); Mean Corpuscular Hgb 25.2 pg (27.0-31.0); Mean Platelet Volume 10.2 fL (7.4-10.4); Platelet Count 174 10^3/uL (130-400); Red Blood Cell Count 3.14 10^6/uL (4.70-6.10); Red Cell Dist. Width 22.4 % (11.5-14.5); White Blood Cell Count 7.3 10^3/uL (4.8-10.8)
[2024-06-20 07:52] LABS: ALT (SGPT) 15 U/L (0-50); AST (SGOT) 19 U/L (17-59); Albumin 2.3 g/dl (3.5-5.0); Alkaline Phosphatase 63 U/L (38-126); Blood Urea Nitrogen 9 mg/dl (9-20); Calcium 7.7 mg/dl (8.4-10.2); Carbon Dioxide 30 mmol/L (22-30); Chloride 100 mmol/L (98-107); Estimated Creatinine Clearance > 125 ml/min; Glucose 86 mg/dl (70-99); Potassium 4.3 mmol/L (3.5-5.1); Sodium 134 mmol/L (135-145); Total Bilirubin 0.5 mg/dl (0.2-1.3); Total Protein 5.8 g/dl (6.3-8.2); eGFR > 60.00
[2024-06-20] MEDS: STERILE WATER FOR INJECTION 20 ML IV (10:26)
[2024-06-20] MEDS: ROCEPHIN 2000 MG IV (10:26)
[2024-06-20] MEDS: NSS (PRESERVATIVE FREE) 10 ML IV ×2 (10:26→19:57)
[2024-06-20] MEDS: PROTONIX IV 40 MG IV ×2 (10:27→19:57)
--- NOTE | 2024-06-20 12:58 | W.PN.ID1 ---
Date of Service
Date of Service: June 20, 2024
Today's Communication
Continue ceftriaxone for now. See below.
Assessment / Plan
# Septic right knee
# Right medial thigh abscess
- 06/13/2024 s/p I+D of thigh abscess and washout of right knee
- OR cultures from knee and abscess: Group G streptococcus
- Right knee aspiration Group G strep
- Recommend 6 weeks if IV ceftriaxone through 07/20/24 with weekly CRP, CBC, CMP
Unfortunately, does not have infusion
Outpatient Infusion Department for daily IV abx is an alternative option, but pt not allowed to drive x 2 more years, and declines taking other means of transportation.
- PT and drafting layout man recommends SNF rehab. Again no insurance.
- Per case managers, Medicaid application submitted. She will look into SNF that may accept patients with pending Medicaid.
- Continue ceftriaxone for now.
- If unable to find SNF rehab that accepts him, then consider dc home on cephalexin 1000 mg po q6h through 07/20/2024.
# Right calf laceration wound
- Wound healing without infection or cellulitis
- Wound colonized with MRSA, ESBL-E. coli, Group G strep.
# Fever last night resolved.
- Monitor for now.
# Leukocytosis resolving
# s/p GIB/blood loss anemia from NSAIDs
Chief Complaint
-: Other (septic knee)
Subjective / Review of Systems
Had fever last night. No diarrhea. No cough. No urine sxs.
Vital Signs / Physical Exam
Vital Signs
Vital Signs
Temp Pulse Resp BP Pulse Ox
98.6 F 87 16 126/81 100
06/20/24 11:00 06/20/24 11:00 06/20/24 11:00 06/20/24 11:00 06/20/24 11:00
Selected Entries
01/06/25
22:06
Temp 100.6 F H
Physical Exam
Constitutional: No Acute Distress
Cardiovascular: Regular Rate and S1/S2
Pulmonary: Clear
Gastrointestinal: Soft and Non Distended
Neurological: AO x 3
Objective Data
Lab Data
Lab Results
06/20/24 06:31
06/20/24 06:31
ESR 66 mm/hour (0-20) H 06/12/24 05:44
PT 15.5 Sec (11.4-14.6) H 06/07/24 20:34
INR 1.18 06/07/24 20:34
APTT 30.8 Sec (23.4-35.0) 06/07/24 20:34
Estimated Creat Clear > 125 ml/min 06/20/24 06:31
Lactic Acid 1.2 mmol/L (0.7-2.0) 06/07/24 22:07
Total Bilirubin 0.5 mg/dl (0.2-1.3) 06/20/24 06:31
AST 19 U/L (17-59) 06/20/24 06:31
ALT 15 U/L (0-50) 06/20/24 06:31
Alkaline Phosphatase 63 U/L (38-126) 06/20/24 06:31
C-Reactive Protein 78.60 mg/L (0.0-10.00) H 06/12/24 05:44
Most recent labs reviewed.
Micro Results:
06/13/24 17:15 Wound Culture - Final
Leg - Right Group G Streptococcus
Gram Stain - Final
06/13/24 16:45 Wound Culture - Final
Knee - Right Group G Streptococcus
Gram Stain - Final
06/13/24 16:45 Anaerobic Culture - Final
Knee - Right NO ANAEROBES ISOLATED
06/13/24 17:15 Anaerobic Culture - Final
Leg - Right NO ANAEROBES ISOLATED
06/10/24 15:23 Wound Culture - Final
Knee - Right Group G Streptococcus
Gram Stain - Final
06/07/24 21:47 Wound Culture - Final
Leg - Right Staph aureus MRSA
Escherichia coli - ESBL
Group G Streptococcus
Gram Stain - Final
06/08/24 06:20 MRSA Screen - Final
Nose Staph aureus MRSA
06/07/24 CT a/p: Some high attenuation density associated with prior gastric bypass limiting evaluation without gross findings to suggest active gastric bleeding. Please note, CT has decreased sensitivity for peptic ulcer disease. No findings to
suggest active colonic bleeding. Findings likely representing incidental small bowel transient intussusception.
06/09/24 Right knee XRAY: No osseous injury appreciated.
06/09/24 MRI RLE: Moderate to large suprapatellar joint effusion with thin septae. MRI has not been shown to be highly accurate for determination of septic joint, and arthrocentesis is generally considered the gold standard. As warranted,
consideration for arthrocentesis. No MR findings to suggest osteomyelitis. There is no evidence for fracture or significant bone bruise.
Thickening and increased T2-weighted signal involving the visualized popliteus muscle, most suggestive of muscular strain. Increased T2-weighted signal involving the posterior calf musculature, greatest involving the lateral head of the
gastrocnemius muscle. This finding would also be most suggestive of muscular strain. Of note, inflammatory/infectious myositis is a differential consideration.
There is a focal fluid collection between the lateral head of the gastrocnemius muscle and the posterior margin of the soleus, most likely fluid from muscular strain, although a focal infected fluid collection is also possible.
Mild increased T2-weighted signal involving the fibers of the distal vastus medialis and vastus lateralis, most suggestive of muscular strain.
Increased signal intensity involving the fibers of the ACL suggesting sprain and/or mucoid degeneration.
Fluid collection originating in the gastrocnemius/semimembranosus bursa, and extending superiorly along the anterior margin of the distal semimembranosus.
Care Review
Plan reviewed with: Other (Assembling Machine Operator Nelia Lo)
--- NOTE | 2024-06-20 14:33 | W.PN.HOSP.TC ---
Today's Communication/Plan
-
CW ABX
Ongoing dc efforts
Assessment / Plan
Assessment / Plan
44 man with knee pain and GI bleeding.
1. Acute GI bleed of gastrojejunal anastomoses - resolving, s/p second EGD procedure, H/H much improved, now 7.7
Acute blood loss anemia
H/O gastric bypass
-S/p EGD that showed deep cratered ulcer at GJ anastomosis, s/p endoscopic epinephrine injection
Went back to endoscopy suite on 06/12/24
Ulcer sprayed with clotting material
trend H/H
-Status post 6 units of PRBC; hemoglobin stable at 7.9,currently on PPI BID
-Has remained hemodynamically stable
-Continue PPI, absolute avoidance of NSAIDs and steroids now and after discharge
-Oral PPi at discharge
2. Septic arthritis of right knee/thigh space - s/p ortho procedure. Knee aspirate growing group G strep
Right knee with effusion and severe pain
Complicated by Purulent cellulitis of the RLE
-Was started on IV vancomycin for presumed cellulitis of the right lower extremity
-Recently had right knee injury; has had worsening pain here; elevated inflammatory markers
-Currently with leukocytosis; MRI showed effusion of the right knee
-S/p arthrocentesis, culture sent and growing GGS.
Wound Cultures show: MRSA, ESBL e-coli; Knee fluid cx Group G Strep
ID consulted for help with antibiotics
Recommend 6 weeks if IV ceftriaxone through 07/20/24 with weekly CRP, CBC, CMP
Unfortunately, pt's insurance does not cover home IV abx.
If DC home and unable to receive IV abx at OID, transition to second-line tx - cephalexin 1000 mg po q6h through 07/20/2024.
-Ortho following s/p procedure
3. Morbid obesity s/p gastric bypass -BMI 40, affects all aspects of care. He had been 600+ Lbs and successfully lost 400Lbs after gastric bypass.
He feels this is his ideal weight, given his history, However, it may be best to be closer to a BMI of 30 than 40.
-He states he knows how to lose weight.
-Outpatient follow up with his PCP
4. Paroxysmal AF s/p ablation -No longer on anticoagulants nor rate/rhythm controlling agents
-Heart rate WNL here
-No active plan needed at this time
5. H/O CVA s/p tPA
-Likely related to previous AF history
-No residual deficits
6. Low Ca. Corrects to normal calcium (has low albumin)
-artifact of lab measurement.
DVT prophylaxis: SCD
Diet: Regular
CODE STATUS: Full code
DW CM - working on SNF placement
Anticipated Discharge: 24 - 48 hours
Subjective/Interval History
-
Date of Service: June 20, 2024
No overnight events. Able to move a little bit better on the right knee. Trying to use less pain medication.
Objective Data
-
Labs:
Laboratory Results
06/20/24
06:31
WBC 7.3
Hgb 7.9 L
Hct 27.0 L
Plt Count 174
Sodium 134 L
Potassium 4.3
Chloride 100
Carbon Dioxide 30
BUN 9
Creatinine 0.6 L
Glucose 86
Calcium 7.7 L
Total Bilirubin 0.5
AST 19
ALT 15
Alkaline Phosphatase 63
Vital Signs:
Vital Signs
Temp Pulse Resp BP Pulse Ox
98.6 F 87 16 126/81 100
06/20/24 11:00 06/20/24 11:00 06/20/24 11:00 06/20/24 11:00 06/20/24 11:00
I&O
06/19/24 06/20/24 06/21/24
06:59 06:59 06:59
Intake Total 1919 / 1920 2720 / 2720 240 / 240
Output Total 600 / 600 400 / 400
Balance 1320 / 1320 2320 / 2320 240 / 240
Review of Systems
-
Respiratory: Denies Trouble Breathing
Cardiac: Denies Chest Pain
Abdomen/GI: Denies Abdominal Pain, Nausea, Vomiting or Diarrhea
Neuro: Denies Dizzy
Physical Exam
-
General: Comfortable
Respiratory: Non Labored Respirations; Negative Accessory Resp Muscle Use
Cardiac: Regular Rhythm and S1/S2
Neuro: AO x 3
Psych: Calm
Data Reviewed
-
Labs: Labs Reviewed by me
--- NOTE | 2024-06-20 14:49 | WOUNDNOTE ---
[facility] RN NOTE: Visited patient to follow up with right posterior leg wound and lower back wound. Patient reported he completed wound care already and everything is 'fine.' He declined to have wounds assessed due to pain with moving leg and
acknowledged he was recently medicated for pain. He also mentioned that he left right posterior leg wound open for a few hours to 'get some air.' This law writer explained importance of keeping open wounds cleaned and covered to avoid infection and aid
in healing. Patient continued to say that the wound 'needed air.' DIMA Fischer updated. Patient agreeable to wound assessment tomorrow.
--- NOTE | 2024-06-20 17:21 | CM ---
Spoke with ID who stated that if patient unable to transport to the infusion center, she will write for PO ABX. Spoke with patient. Advised [facility] may be able to transport him. Patient declined stating that they often make people wait for rides.
Patient stated that PO ABX would be easier for him but expressed concerns about it being as effective. Per previous discussion with Dr. Portillo, patient could be discharged with PO abx if that is the only way that they are accessible to him.
Patient was advised that CM will check the status of HRSI.
If patient gets PO ABX will need coverage as he stated that he does not have any funds to pay for the cost.
Plan: Case management will continue to follow and assist with discharge planning. Home with PO ABX vrs IV. Will check status of MA darrel.
[2024-06-21] MEDS: ROXICODONE 10 MG PO ×4 (03:41→19:26)
[2024-06-21 03:45] VITALS: BP 123/73
[2024-06-21 07:00] VITALS: BP 131/80
--- NOTE | 2024-06-21 07:44 | W.PN.UPDATE ---
Update Note
Progress Note Update
Mr. Vieira is POD8 following his right thigh I&D and right knee arthroscopic I&D. He is resting comfortably in bed this morning. He endorses residual tenderness and soreness about the knee, but overall reports he is moving in the right direction.
Directed exam of the right lower extremity reveals surgical incisions well approximated with sutures/sandrine, and without signs of erythema, drainage or dehiscence. Generalized edema throughout the right lower extremity. Tenderness to palpation
generally about the right knee. No tenderness to palpation of the calf. Patient able to plantar and dorsiflex ankle. Neurovascularly intact distally.
POD#8 right medial thigh I&D and right knee arthroscopic I&D 06/13/[address] Escoto.
--Appreciate the primary team, continue Tx.
--PT/OT, WBAT. ROM as tolerated.
--Walker/crutches for assistance during weightbearing.
--DVT ppx- per primary in setting of GI bleed; venous foot pumps or SCDs at minimum, early ambulation.
--Ice with elevation to control swelling and pain.
--OR cultures with group G strep. Antibiotics per ID, currently Ceftriaxone.
--Nursing may change dressing as needed.
--Orthopedics to continue to follow. Outpatient follow-up for staple/suture removal 7-9 days.
[2024-06-21] MEDS: NSS (PRESERVATIVE FREE) 10 ML IV (07:58)
[2024-06-21] MEDS: PROTONIX IV 40 MG IV (07:59)
[2024-06-21] MEDS: STERILE WATER FOR INJECTION 20 ML IV (10:08)
[2024-06-21] MEDS: ROCEPHIN 2000 MG IV (10:08)
--- NOTE | 2024-06-21 10:18 | PTCARENOTE ---
Upon AM assessment, Patient's right knee wound is open to air. Kirby and sutures in tact. RN asked if she could provide patient with dressings to cover wound and perform wound care. Pt refused and stated 'it needs to air out, and I am waiting for
the wound care nurse to do the dressing later today'.
[2024-06-21 11:00] VITALS: BP 116/73
--- NOTE | 2024-06-21 12:27 | W.PN.HOSP.TC ---
Today's Communication/Plan
-
Ongoing disposition efforts
Assessment / Plan
Assessment / Plan
44 man with knee pain and GI bleeding.
1. Acute GI bleed of gastrojejunal anastomoses - resolving, s/p second EGD procedure, H/H much improved, now 7.7
Acute blood loss anemia
H/O gastric bypass
-S/p EGD that showed deep cratered ulcer at GJ anastomosis, s/p endoscopic epinephrine injection
Went back to endoscopy suite on 06/12/24
Ulcer sprayed with clotting material
trend H/H
-Status post 6 units of PRBC; hemoglobin stable at 7.9,currently on PPI BID
-Has remained hemodynamically stable
-Continue PPI, absolute avoidance of NSAIDs and steroids now and after discharge
-Oral PPi at discharge
2. Septic arthritis of right knee/thigh space - s/p ortho procedure. Knee aspirate growing group G strep
Right knee with effusion and severe pain
Complicated by Purulent cellulitis of the RLE
-Was started on IV vancomycin for presumed cellulitis of the right lower extremity
-Recently had right knee injury; has had worsening pain here; elevated inflammatory markers
-Currently with leukocytosis; MRI showed effusion of the right knee
-S/p arthrocentesis, culture sent and growing GGS.
Wound Cultures show: MRSA, ESBL e-coli; Knee fluid cx Group G Strep
ID consulted for help with antibiotics
Recommend 6 weeks if IV ceftriaxone through 07/20/24 with weekly CRP, CBC, CMP
Unfortunately, pt's insurance does not cover home IV abx.
If DC home and unable to receive IV abx at OID, transition to second-line tx - cephalexin 1000 mg po q6h through 07/20/2024.
-Ortho following s/p procedure
3. Morbid obesity s/p gastric bypass -BMI 40, affects all aspects of care. He had been 600+ Lbs and successfully lost 400Lbs after gastric bypass.
He feels this is his ideal weight, given his history, However, it may be best to be closer to a BMI of 30 than 40.
-He states he knows how to lose weight.
-Outpatient follow up with his PCP
4. Paroxysmal AF s/p ablation -No longer on anticoagulants nor rate/rhythm controlling agents
-Heart rate WNL here
-No active plan needed at this time
5. H/O CVA s/p tPA
-Likely related to previous AF history
-No residual deficits
6. Low Ca. Corrects to normal calcium (has low albumin)
-artifact of lab measurement.
DVT prophylaxis: SCD
Diet: Regular
CODE STATUS: Full code
DW CM - working on SNF placement
Anticipated Discharge: 24 - 48 hours
Subjective/Interval History
-
Date of Service: June 21, 2024
Continue improvement with his ambulation. Able to manage right knee pain with p.o. oxycodone. No fever chills. Denies constipation.
Objective Data
-
Vital Signs:
Vital Signs
Temp Pulse Resp BP Pulse Ox
99.2 F 84 18 116/73 97
06/21/24 11:00 06/21/24 11:00 06/21/24 11:00 06/21/24 11:00 06/21/24 11:00
I&O
06/20/24 06/21/24 06/22/24
06:59 06:59 06:59
Intake Total 2720 / 2720 2500 / 2500
Output Total 400 / 400 200 / 200
Balance 2320 / 2320 2300 / 2300
Review of Systems
-
Respiratory: Denies Trouble Breathing
Cardiac: Denies Chest Pain
Neuro: Denies Dizzy
Physical Exam
-
General: Comfortable
Respiratory: Non Labored Respirations; Negative Accessory Resp Muscle Use
Cardiac: Regular Rhythm and S1/S2
Musculoskeletal: Other (Rt thigh sandrine clean)
Neuro: AO x 3
--- NOTE | 2024-06-21 13:58 | PTCARENOTE ---
Pt HR went up to 165 while laying in bed. Pt felt palpitations and says it 'happens sometimes when I drink milk'. Palpitations resolved and HR returned to normal within a few minutes. Pt has no complaints and MD made aware.
[2024-06-21 15:00] VITALS: BP 130/84
--- NOTE | 2024-06-21 15:52 | CM ---
Addendum entered by TARA Jean 06/21/24 16:56:
Will confirm that all options for IV ABX have been exhausted and update attending definitively.
Original Note:
Spoke with attending to make aware that patient does not have transportation to outpatient infusion and declined resources provided by . Per ID PO ABX can be prescribed. Attending stated that patient would need Cephalexin 1000 mg PO Q6h until
07/20/24.
Placed a call to Patient's [facility] in [place] and spoke with, a pharmacist named, Letty, who stated that for 58 pills (the amount needed to fufill above) would be $ 5.72.
Attending updated.
Will update patient upon attending's approval.
Plan: Case management will continue to follow and assist with discharge planning. Home with PO ABX.
[2024-06-21 19:20] VITALS: BP 104/68
[2024-06-21] MEDS: PROTONIX 40 MG PO (19:26)
[2024-06-21 23:40] VITALS: BP 134/78
[2024-06-22] MEDS: ROXICODONE 10 MG PO ×4 (00:05→15:13)
[2024-06-22 03:40] VITALS: BP 119/70
[2024-06-22 06:20] LABS: Hematocrit 26.9 % (39.0-52.0); Hemoglobin 7.9 g/dL (13.0-18.0); Mean Corp Hgb Conc. 29.4 g/dL (33.0-37.0); Mean Corpuscular Hgb 25.5 pg (27.0-31.0); Mean Corpuscular Volume 86.8 fL (80.0-94.0); Mean Platelet Volume 10.2 fL (7.4-10.4); Platelet Count 185 10^3/uL (130-400); Red Cell Dist. Width 21.2 % (11.5-14.5); White Blood Cell Count 7.2 10^3/uL (4.8-10.8)
[2024-06-22 07:00] VITALS: BP 117/72
[2024-06-22] MEDS: PROTONIX 40 MG PO (07:31)
[2024-06-22] MEDS: ROCEPHIN 2000 MG IV (09:43)
[2024-06-22] MEDS: STERILE WATER FOR INJECTION 20 ML IV (09:44)
--- NOTE | 2024-06-22 10:03 | W.PN.ID1 ---
Date of Service
Date of Service: June 22, 2024
Today's Communication
Ultimate plan is to dc home.
Transition ceftriaxone to cephalexin 500mg caps, TAKE 2 CAPS (=1000 mg) four times a day. through 07/20/2024.
Per test case developer 58 pills cost $5.72. He needs 8 pills/day x 28 days = 224 pills = $22.00. Pt states he can afford $22.00
Assessment / Plan
# Septic right knee
# Right medial thigh abscess
- 06/13/2024 s/p I+D of thigh abscess and washout of right knee
- OR cultures from knee and abscess: Group G streptococcus
- Right knee aspiration Group G strep
- Recommend 6 weeks if IV ceftriaxone through 07/20/24
Unfortunately, does not have insurance
Outpatient Infusion Department for daily IV abx is an alternative option, but pt not allowed to drive x 2 more years, and declines taking other means of transportation.
- PT and learning and development assistant recommends SNF rehab. Again no insurance.
- Medicaid application submitted, will take several weeks for review/approval.
- Plan is to dc home.
Transition ceftriaxone to cephalexin 500mg caps, TAKE 2 CAPS (=1000 mg) four times a day. through 07/20/2024.
Per test case developer 58 pills cost $5.72. He needs 8 pills/day x 28 days = 224 pills = $22.00. Pt states he can afford $22.00
# Right calf laceration wound
- Wound healing without infection or cellulitis
- Wound colonized with MRSA, ESBL-E. coli, Group G strep.
# Fever resolved
# Leukocytosis resolved
# s/p GIB/blood loss anemia from NSAIDs
Chief Complaint
-: Other (septic knee)
Subjective / Review of Systems
Pt states he can manage at home.
Vital Signs / Physical Exam
Vital Signs
Vital Signs
Temp Pulse Resp BP Pulse Ox
97.8 F 85 17 117/72 98
06/22/24 07:00 06/22/24 07:00 06/22/24 07:00 06/22/24 07:00 06/22/24 07:00
Physical Exam
Constitutional: No Acute Distress
Cardiovascular: Regular Rate and S1/S2
Pulmonary: Clear
Gastrointestinal: Soft and Non Distended
Neurological: AO x 3
Objective Data
Lab Data
Lab Results
06/22/24 06:03
06/20/24 06:31
ESR 66 mm/hour (0-20) H 06/12/24 05:44
PT 15.5 Sec (11.4-14.6) H 06/07/24 20:34
INR 1.18 06/07/24 20:34
APTT 30.8 Sec (23.4-35.0) 06/07/24 20:34
Estimated Creat Clear > 125 ml/min 06/20/24 06:31
Lactic Acid 1.2 mmol/L (0.7-2.0) 06/07/24 22:07
Total Bilirubin 0.5 mg/dl (0.2-1.3) 06/20/24 06:31
AST 19 U/L (17-59) 06/20/24 06:31
ALT 15 U/L (0-50) 06/20/24 06:31
Alkaline Phosphatase 63 U/L (38-126) 06/20/24 06:31
C-Reactive Protein 78.60 mg/L (0.0-10.00) H 06/12/24 05:44
Most recent labs reviewed.
Micro Results:
06/13/24 17:15 Wound Culture - Final
Leg - Right Group G Streptococcus
Gram Stain - Final
06/13/24 16:45 Wound Culture - Final
Knee - Right Group G Streptococcus
Gram Stain - Final
06/13/24 16:45 Anaerobic Culture - Final
Knee - Right NO ANAEROBES ISOLATED
06/13/24 17:15 Anaerobic Culture - Final
Leg - Right NO ANAEROBES ISOLATED
06/10/24 15:23 Wound Culture - Final
Knee - Right Group G Streptococcus
Gram Stain - Final
06/07/24 21:47 Wound Culture - Final
Leg - Right Staph aureus MRSA
Escherichia coli - ESBL
Group G Streptococcus
Gram Stain - Final
06/08/24 06:20 MRSA Screen - Final
Nose Staph aureus MRSA
06/07/24 CT a/p: Some high attenuation density associated with prior gastric bypass limiting evaluation without gross findings to suggest active gastric bleeding. Please note, CT has decreased sensitivity for peptic ulcer disease. No findings to
suggest active colonic bleeding. Findings likely representing incidental small bowel transient intussusception.
06/09/24 Right knee XRAY: No osseous injury appreciated.
06/09/24 MRI RLE: Moderate to large suprapatellar joint effusion with thin septae. MRI has not been shown to be highly accurate for determination of septic joint, and arthrocentesis is generally considered the gold standard. As warranted,
consideration for arthrocentesis. No MR findings to suggest osteomyelitis. There is no evidence for fracture or significant bone bruise.
Thickening and increased T2-weighted signal involving the visualized popliteus muscle, most suggestive of muscular strain. Increased T2-weighted signal involving the posterior calf musculature, greatest involving the lateral head of the
gastrocnemius muscle. This finding would also be most suggestive of muscular strain. Of note, inflammatory/infectious myositis is a differential consideration.
There is a focal fluid collection between the lateral head of the gastrocnemius muscle and the posterior margin of the soleus, most likely fluid from muscular strain, although a focal infected fluid collection is also possible.
Mild increased T2-weighted signal involving the fibers of the distal vastus medialis and vastus lateralis, most suggestive of muscular strain.
Increased signal intensity involving the fibers of the ACL suggesting sprain and/or mucoid degeneration.
Fluid collection originating in the gastrocnemius/semimembranosus bursa, and extending superiorly along the anterior margin of the distal semimembranosus.
Care Review
Plan reviewed with: Physician (Dr. Bola Monae)
[2024-06-22 11:29] VITALS: BP 130/75
--- NOTE | 2024-06-22 15:10 | CM ---
Patient agreeable to PO ABX. He stated that he can afford the cost as he has [employer]. PT messaged and stated that patient needs a walker however his insurance policy does not cover the cost. Placed a call to [facility] [email or web address] and was advised
that a Bariatric walker, which patient stated he feels more comfortable with, is 140 dollars. A regular walker is 70. Placed a call to [facility] and spoke with a rep named Massimo, who stated that they do not have bariatric walkers but do have
standard, which would cost 75. Reviewed [employer] website and called PT as there are walkers for under 70 dollars. Spoke with PT who stated that for safety, walker would need to be delivered here and set up for patient prior to him leaving. Placed a
call to [facility] and spoke with someone named, Kelly who stated that they do not accept patient's insurance but out of pocket a bariatric walker would be 140, 75 for regular. Provided [phone] to patient to call to obtain a
walker which Kelly stated could be delivered by 7. Patient stated that he does not have the funds. CM advised that charitable funds can be explored, however he stated that he does not want to wait until 7 and does have an old walker he can use
at home.
RN updated. She stated that she will discuss with patient again. She stated that she again advised patient that walker may be able to be covered by hospital funds however he became irritated and stated again that he does not want to wait.
Plan: Case management will continue to follow and assist. Home today.
[2024-06-22 15:15] VITALS: BP 142/88
--- NOTE | 2024-06-22 15:36 | W.PN.HOSP.TC ---
Today's Communication/Plan
-
DC
Assessment / Plan
Assessment / Plan
44 man with knee pain and GI bleeding.
1. Acute GI bleed of gastrojejunal anastomoses - resolving, s/p second EGD procedure, H/H much improved, now 7.7
Acute blood loss anemia
H/O gastric bypass
-S/p EGD that showed deep cratered ulcer at GJ anastomosis, s/p endoscopic epinephrine injection
Went back to endoscopy suite on 06/12/24
Ulcer sprayed with clotting material
trend H/H
-Status post 6 units of PRBC; hemoglobin stable at 7.9,currently on PPI BID
-Has remained hemodynamically stable
-Continue PPI, absolute avoidance of NSAIDs and steroids now and after discharge
-Oral PPi at discharge
- Daily oral FeSO4
2. Septic arthritis of right knee/thigh space - s/p ortho procedure. Knee aspirate growing group G strep
Right knee with effusion and severe pain
Complicated by Purulent cellulitis of the RLE
-Was started on IV vancomycin for presumed cellulitis of the right lower extremity
-Recently had right knee injury; has had worsening pain here; elevated inflammatory markers
-Currently with leukocytosis; MRI showed effusion of the right knee
-S/p arthrocentesis, culture sent and growing GGS.
Wound Cultures show: MRSA, ESBL e-coli; Knee fluid cx Group G Strep
ID consulted for help with antibiotics
Recommend 6 weeks if IV ceftriaxone through 07/20/24 with weekly CRP, CBC, CMP
Unfortunately, pt's insurance does not cover home IV abx. Case management extensively look for resources to get IV antibiotics as outpatient infusion center but unable to and as well as could not be placed in SNF for IV antibiotics. See
their notes for details.
As unable to receive IV abx at [facility], transitioned to second-line tx - cephalexin 1000 mg po q6h through 07/20/2024.
-Ortho following s/p procedure
3. Morbid obesity s/p gastric bypass -BMI 40, affects all aspects of care. He had been 600+ Lbs and successfully lost 400Lbs after gastric bypass.
He feels this is his ideal weight, given his history, However, it may be best to be closer to a BMI of 30 than 40.
-He states he knows how to lose weight.
-Outpatient follow up with his PCP
4. Paroxysmal AF s/p ablation -No longer on anticoagulants nor rate/rhythm controlling agents
-Heart rate WNL here
-No active plan needed at this time
5. H/O CVA s/p tPA
-Likely related to previous AF history
-No residual deficits
6. Low Ca. Corrects to normal calcium (has low albumin)
-artifact of lab measurement.
DVT prophylaxis: SCD
Diet: Regular
CODE STATUS: Full code
Medically stable for discharge home today
Discussed with patient regarding GI bleeding and ulcer and treatments and follow-up on as well as antibiotic regimen which is the second line due to above reasons.
DW CM about stability of dc today
Total time of dc 32 min
Anticipated Discharge: Today
Subjective/Interval History
-
Date of Service: June 22, 2024
No overnight events.
Continued improvement with ambulation.
No fever chills.
No nausea vomiting or diarrhea.
Objective Data
-
Labs:
Laboratory Results
06/22/24
06:03
WBC 7.2
Hgb 7.9 L
Hct 26.9 L
Plt Count 185
Vital Signs:
Vital Signs
Temp Pulse Resp BP Pulse Ox
97.8 F 93 18 142/88 97
06/22/24 15:15 06/22/24 15:15 06/22/24 15:15 06/22/24 15:15 06/22/24 15:15
I&O
01/02/0506/22/24 06/23/24
06:59 06:59 06:59
Intake Total 2500 / 2500 2009
Output Total 200 / 200 400 / 400
Balance 2300 / 2300 1610 / 1610
Review of Systems
-
Respiratory: Denies Trouble Breathing
Cardiac: Denies Chest Pain
Neuro: Denies Dizzy
Physical Exam
-
General: Comfortable
Respiratory: Clear to Auscultation and Non Labored Respirations; Negative Accessory Resp Muscle Use
Cardiac: Regular Rhythm and S1/S2
Neuro: AO x 3
Psych: Calm
Data Reviewed
-
Labs: Labs Reviewed by me
== END 2024-06-22 17:19 | disposition home or self-care (01) | DRG 378 ==
LOC: 3 WEST ACU 22:56
PROVIDERS: Clinical Nurse Specialist Family Health; Emergency Medicine; General Practice; Internal Medicine; Internal Medicine Gastroenterology; Nurse Practitioner Family; Specialist; ADMITTING PHYSICIAN Internal Medicine; ATTENDING PHYSICIAN Internal Medicine; CONSULT PHYSICIAN Internal Medicine Infectious Disease; CONSULT PHYSICIAN Orthopaedic Surgery Hand Surgery; CONSULT PHYSICIAN Physical Medicine & Rehabilitation; EMERGENCY PHYSICIAN Student in an Organized Health Care Education/Training Program; OTHER PHYSICIAN Internal Medicine
PROC: 30233N1 Transfusion of Nonautologous Red Blood Cells into Peripheral Vein, Percutaneous Approach (ICD-10-PCS; 2024-06-07)
PROC: 3E0G8GC Introduction of Other Therapeutic Substance into Upper GI, Via Natural or Artificial Opening Endoscopic (ICD-10-PCS; 2024-06-08)
PROC: 0S9C3ZZ Drainage of Right Knee Joint, Percutaneous Approach (ICD-10-PCS; 2024-06-10)
PROC: XW0G886 Introduction of Mineral-based Topical Hemostatic Agent into Upper GI, Via Natural or Artificial Opening Endoscopic, New Technology Group 6 (ICD-10-PCS; 2024-06-12)
PROC: 0W3P8ZZ Control Bleeding in Gastrointestinal Tract, Via Natural or Artificial Opening Endoscopic (ICD-10-PCS; 2024-06-12)
PROC: 0S9C4ZZ Drainage of Right Knee Joint, Percutaneous Endoscopic Approach (ICD-10-PCS; 2024-06-13)
PROC: 0J9L0ZZ Drainage of Right Upper Leg Subcutaneous Tissue and Fascia, Open Approach (ICD-10-PCS; 2024-06-13)
DX: K28.0 Acute gastrojejunal ulcer with hemorrhage (principal); D62 Acute posthemorrhagic anemia; Z68.41 Body mass index [BMI] 40.0-44.9, adult; E87.1 Hypo-osmolality and hyponatremia; M00.261 Other streptococcal arthritis, right knee; L02.415 Cutaneous abscess of right lower limb; L03.115 Cellulitis of right lower limb; I10 Essential (primary) hypertension; E83.51 Hypocalcemia; F17.290 Nicotine dependence, other tobacco product, uncomplicated; E66.01 Morbid (severe) obesity due to excess calories; M25.461 Effusion, right knee; B95.1 Streptococcus, group B, as the cause of diseases classified elsewhere; S83.281A Other tear of lateral meniscus, current injury, right knee, initial encounter; S83.241A Other tear of medial meniscus, current injury, right knee, initial encounter; S81.811A Laceration without foreign body, right lower leg, initial encounter; T39.395A Adverse effect of other nonsteroidal anti-inflammatory drugs [NSAID], initial encounter; W01.0XXA Fall on same level from slipping, tripping and stumbling without subsequent striking against object, initial encounter; Z98.84 Bariatric surgery status; Z86.73 Personal history of transient ischemic attack (TIA), and cerebral infarction without residual deficits; Z86.79 Personal history of other diseases of the circulatory system
CPT/HCPCS: 36430; 73560; 73721; 74174; 80048; 80053; 80202; 83540; 83550; 83605; 83735; 85014; 85018; 85025; 85027; 85610; 85652; 85730; 86140; 86850; 86900; 86901; 86920; 87070; 87071; 87075; 87077; 87147; 87186; 87205; 93005; 93970; 96365; 96375; 97110; 97116; 97162; 97167; 97530; 97535; 99285; J1335; J2916; P9016; Q9967

== ENCOUNTER 2024-06-26 16:05 | Emergency (ER) | payer OTHER, SELFPAY ==
--- NOTE | 2024-06-26 16:51 | EDRN ---
1604 - patient arrived via EMS from home. EMS received call at 1439 for respiratory distress and EMS stated they were on scene at 1446. Per EMS, pt was found pale, bradycardic heart rate 40s, apneic, pupils were 6mm. pt had a knee surgery 2 weeks
ago. pts home meds per EMS: pantoprazole, oxycodone, and amoxicillin. Per EMS, NARCAN was given on scene- no response. Pt was given 1 Amp Atropine on scene, no response so they started pacing the pt. EMS stated the pt was given 1 defib shock for V.
Fib and the pt was given a total of 10 amps of EPI pre-hospital. EMS stated the pt was located on the 3rd floor and EMS required assistance from fire rescue to get the pt to ground floor and into the ambulance. pt arrives with CPR in progress via
MAHI device and pt had supraglottic intubation performed by EMS pre-hospital. EMS placed Right lower extremity I/O pre-hospital
1610- 1 amp EPI given via I/O per ER Dr Guzman verbal order at bedside
1611- 1 AMP BICARB given via I/O per ER Dr Guzman verbal order at bedside
1612 - pulse check, NO Pulse, asystole on oven worker, CPR resumed
1613 - 50mg Alteplase given via I/O per ER Dr Guzman verbal order at bedside
1615 - 1 AMP EPI given via I/O per ER Dr Guzman verbal order at bedside
1616 - pulse check, NO Pulse, Asystole on oven worker, CPR resumed
1617 - 1 AMP Calcium given via I/O per ER Dr Guzman verbal order at bedside
1618 - 20G IV Right wrist placed at this time. pt is a very difficulty IV stick
1619 - 1 AMP EPI given via Right wrist IV per ER Dr Guzman verbal order at bedside
1621 - pulse check, NO pulse, asystole on oven worker, CPR resumed
1628 - pulse check, NO Pulse asystole on oven worker
TIME OF : [address] Guzman verbal order at bedside
--- NOTE | 2024-06-26 16:54 | ED.GENMED ---
History of Present Illness
General
Chief Complaint: CODE
Source: family and ambulance crew
Time Seen by Provider: 06/26/24 16:13
History of Present Illness
History of Present Illness:
This patient is a 44-year-old male who presents to the emergency department in cardiopulmonary arrest. He reportedly just had knee surgery about a week or so ago. Medics were called because Beyonc� states that patient was not breathing well. Upon
their arrival, patient was noted to be in respiratory distress and ultimately bradycardic and then PEA. A supraglottic device was placed, CPR was initiated, patient received 10 rounds of epi in the field associated with 1 shock for presumed V-fib.
He remained in PEA upon arrival as per medics. Dave was not placed. Of note, given prolonged resuscitation at the home they did call medical command requesting termination in the field, and it was recommended that patient be brought to the ER.
Past History
Past History
ED Past Medical History: Arrthythmia (Afib), HTN and Other (Inguinal hernia)
ED Past Surgical History: Cardiac (Ablation), Orthopedic (ORIF right elbow. ), Tonsilectomy (and adenoids) and Other (Hernia repair, Gastric bypass, )
Social History
Tobacco: Vaping
Alcohol: None
Drug: None
Personal: Single
Living: with family
Employment: Employed
Phy Exam
Physical Exam
Physical Exam:
CODE EXAM:
VITAL SIGNS: No palpable blood pressure, no pulses, no respiration.
GENERAL EXAM: Mottled
EYES: Pupils fixed
ENT: Patient with airway device in place
NECK: No venous distention
RESPIRATORY: Equal breath sounds
CARDIAC: Absent heart sounds
VASCULAR: Absent pulses
ABDOMEN: Soft no masses
GUAIAC: Not done
MUSCULOSKELETAL: Unable to evaluate strength
EXTREMITIES: No edema or contractures
SKIN: No rash
PSYCH: Mood, affect unable to evaluate
Course
Orders/Labs/Results
Orders:
Orders
06/26/24 16:08
Alteplase [Activase] 100 ml .ROUTE .STK-MED
06/26/24 18:27
Calcium CHLORIDE [Calcium Chloride 10% Syringe] 1,000 mg .ROUTE .STK-MED ONE
EPINEPHrine [Adrenalin 1 mg/10 ml] 3 mg .ROUTE .STK-MED ONE
Sodium Bicarbonate 50 meq .ROUTE .STK-MED ONE
06/26/24 16:15
06/26/24 16:15
*Critical Care Note
Total Time (30-74mins, 75-104mins- exclusive of procedures): 30
Update Note
Update Note:
Patient presents to the Emergency Department with __cardiopulmonary arrest
Number and Complexity of Problems Addressed at the Encounter
� Chronic conditions affecting care:
� Acute Exacerbation and/or Progression of Chronic Illness:
� Differential Diagnosis includes: But not limited to IA, PE, GI bleed, etc. etc. etc.
Amount and/or Complexity of Data to be Reviewed and Analyzed
� I performed an independent evaluation of and my interpretation is:
EKG:
CT:
Xrays:
Laboratory Studies:
Other:
� Review of other/old records reveals: Patient was recently in the hospital for a GJ anastomosis bleed and then right thigh/knee septic arthritis requiring prolonged antibiotics.
� Clinical information was obtained by an independent historian: EMS
� Prescriptions/Medications Considered but not given:
� Further testing considered but not performed:
Risk of Complications and/or Morbidity or Mortality of Patient Management
� Social determinants of health affecting care:
� Discussion with other providers (PCP, Hospitalists, Consultants, etc):
� Escalation of care including admission/observation vs risk of discharge considered: Given patient's obesity, recent surgery, and respiratory arrest as initial presentation, concern that this may be related to a PE. As a
result, he was given 50 mg of alteplase and CPR was continued for 15 minutes. He remained in asystole without a pulse. Time of called at 4:28 PM in the family room, I informed his fianc�e and friends. We are told that he does not have a
relationship with his ex- and sole remaining family member, his brother. Warehouse Manager to bedside, gift of life called, paint pourer called. Process Control Operator has not yet decided if this is a 'paint pourer case', will await gift of life opinion, recommends patient's
body be brought to the morgue in the meantime.
ED Attending Note
-
Portions of this chart may have been created with voice recognition software.� Occasional wrong word or��sound alike� substitutions may have occurred due to the inherent limitations of voice recognition software.
Discharge Plan
Departure
Patient Disposition:
Date of Disposition: 06/26/24
Time of Disposition: 16:28
Discharge Problem:
Cardiopulmonary arrest
Prescriptions:
No Action
acetaminophen 325 mg Tablet
650 mg PO Q4HPRN PRN (Reason: mild pain/ fever>100.5F) Qty: 1 0RF
polyethylene glycol 3350 17 gram Powder In Packet
17 g PO DAILYPRN PRN (Reason: constipation) Qty: 30 0RF
sennosides-docusate sodium 8.6-50 mg Tablet
1 tab PO DAILYPRN PRN (Reason: constipation) Qty: 30 0RF
pantoprazole 40 mg Tablet,Delayed Release (Dr/Ec)
40 mg PO BID Qty: 60 0RF
oxycodone 5 mg Tablet
5 mg PO Q6HPRN PRN (Reason: moderate pain) Qty: 28 0RF
cephalexin 500 mg capsule
1,000 mg PO QID Qty: 232 0RF
Rx Instructions:
till 07/20/2024
ferrous sulfate 325 mg (65 mg iron) tablet
325 mg PO DAILY Qty: 30 0RF
Discharge Date and Time
Print Language: GEORGIAN
[2024-06-26 17:18] VITALS: BMI 45.5
--- NOTE | 2024-06-27 10:09 | CM ---
Spoke with CM director, Misty Bowden, who requested collaboration with CM covering ED today to assist with family, Significant Other's concerns and determine whether there is a next of Kin and how to possibly assist. Placed a call to Kailee who
stated that patient has two daughters, Dbe age 14 and Mary Lou age 9. He also has an ex , Nimo, who works signal timer and Kailee stated has the financial resources to provide a for patient. Patient also has a living brother in
[place], Daniel Vieira, however Kailee stated that they only communicate on social medial and do not have an actual physical address or phone number for him.
All of this information was communicated to ED CM for today.
--- NOTE | 2024-06-27 12:15 | CM ---
CM consulted to provide low-income/free burial/cremation/ resources to SO/Kailee per her request after hours yesterday
Pt and SO well-known to CM department from prior admission
This caption writer did speak with mobility manager's office/Magdalene Neves [phone] (case #[id number])
Will need written denial from [facility] [phone]
Will also need verbal denials from [facility] [phone] and [facility] [phone]
CM will need to call mobility manager's office after denials to proceed
Multiple outreach to cremation societies and homes- none with mena programs
Most cost effective option is [facility] [phone] $875 cremation + $50 mobility manager fee
CM/Marla Murray who has established relationship Kailee spoke to SO
Per SO, pt's ex spouse and mother of his two minor children is now handling all /burial arrangements
Her name is Nimo [phone]
== END 2024-06-26 16:28 | disposition expired ==
LOC: EMR 16:05
PROVIDERS: EMERGENCY PHYSICIAN Emergency Medicine
DX: I46.9 Cardiac arrest, cause unspecified (principal); F17.290 Nicotine dependence, other tobacco product, uncomplicated
CPT/HCPCS: 99291; 92950; J2997